=== PATIENT | male | born 2000 | race Caucasian/White ===

== ENCOUNTER 2025-01-14 10:31 | Emergency (ER) | payer SELFPAY ==
[2025-01-14 10:38] VITALS: BP 151/91; PULSE 88; TEMP 36.4; O2SAT 99; BMI 23.4
--- NOTE | 2025-01-14 11:05 | ED.C_ITS ---
HPI - Psych General: Chief Complaint: Psychiatric Symptoms Stated Complaint: MHE Time Seen by Provider: 01/14/25 10:58 History of Present Illness: 24-year-old man with history of alcohol abuse and psychiatric issues who presents emergency room with complaints of depression and relapse on alcohol. He says he was [facility] of [facility] because he had brought some alcohol and. He says he relapsed yesterday and drank some alcohol. He does not appear intoxicated at this time. He says he is wanting to try to get into a different ministry or some sort of rehab. He says he came into the emergency room because this is where the family resource coordinator had dropped him off. He repeatedly denies any suicidal or homicidal ideation. Related Data Previous Rx's ?Medication ?Instructions ?Recorded aripiprazole (2 month) 960 mg/3.2 960 mg (3.2 mL) IM . every 2 months 01/10/25 mL susp, extended rel IM syringe #3.2 mL (Abilify Asimtufii) atomoxetine 60 mg capsule 60 mg PO ONCE #90 caps 01/10 Allergies Allergy/AdvReac Type Severity Reaction Status Date / Time No Known Allergies Allergy Verified 01/14/25 10:43 Review of Systems Narrative: Constitutional symptoms: Negative except as documented in HPI. Skin symptoms: Negative except as documented in HPI. Eye symptoms: Negative except as documented in HPI. ENMT symptoms: Negative except as documented in HPI. Respiratory symptoms: Negative except as documented in HPI. Cardiovascular symptoms: Negative except as documented in HPI. Gastrointestinal symptoms: Negative except as documented in HPI. Genitourinary symptoms: Negative except as documented in HPI. Musculoskeletal symptoms: Negative except as documented in HPI. Neurologic symptoms: Negative except as documented in HPI. Psychiatric symptoms: Negative except as documented in HPI. Endocrine symptoms: Negative except as documented in HPI. PFS ED PFSH: Medical History (Updated 01/14/25 @ 11:08 by Keiry Miguel MD) Anxiety and depression Surgical History (Updated 01/10/25 @ 15:22 by BIRDIE Costello) History of surgery on arm left Social History Smoking and tobacco/nicotine status: former use of tobacco/nicotine Alcohol intake: former Substance/Drug Use: former Physical Exam Narrative: EXAM NARRATIVE: General: Alert, no acute distress. Skin: Warm, dry. Head: Normocephalic, atraumatic. Neck: Supple, trachea midline. Eye: Extraocular movements are intact. Ears, nose, mouth and throat: mucosa moist. Cardiovascular: Regular, Normal peripheral perfusion. Respiratory: Lungs are clear to auscultation, respirations are non-labored, breath sounds are equal, Symmetrical chest wall expansion. Gastrointestinal: Soft, Nontender, Non distended Musculoskeletal: Normal ROM, no deformity. Neurological: Alert and oriented, No focal neurological deficit observed. Psychiatric: Cooperative, appropriate mood & affect. Course Vital Signs: Vital signs: Vital Signs Temperature 97.5 F L 01/14/25 10:38 Pulse Rate 88 01/14/25 10:38 Blood Pressure 151/91 01/14/25 10:38 Pulse Oximetry 99 01/14/25 10:38 Oxygen Delivery Me thod Room Air 01/14/25 10:38 MDM - Psych Medical Decision Making Assessment and plan: Depression Alcohol dependence ? Patient denies any homicidal or suicidal ideation. At this time he is not meeting criteria for inpatient admission. He is looking for rehab or other placement. We discussed that may be the crisis center would be his best next step. - Discharged home - Discussed plan with patient. Answered any questions. - Evaluation and treatment of this problem were appropriate in the emergency setting. No radiology studies performed this visit Discharge Plan Discharge Patient Disposition: Home Clinical Impression: Depression, Bipolar 1 disorder, Alcohol dependence Condition: Stable Prescriptions: No Action Abilify Asimtufii 960 mg/3.2 mL suspension,extended rel syring 960 mg IM .every 2 months Qty: 3.2 3RF atomoxetine 60 mg capsule 60 mg PO ONCE Qty: 90 1RF Discharge Orders: Discharge ED (Routine); Ordered 01/14/25 Ordered By: Keiry Miguel Referrals: Des Flores FNP [Primary Care Provider] - Patient Instructions: Opioid Safety, Pain Management Activity Restrictions/Additional Instructions: Please follow-up with the [facility] crisis center immediately upon discharge. Phone number is [phone]. There is a 24-hour crisis hotline with the number of 438. Hours of operation are 8 AM to 6 PM. Thank you for choosing [facility] for your healthcare needs today. Please realize this is an emergency room and that we are providing you with a medical screening exam and this may not be complete and all inclusive of all the testing and or work up that you may need to determine your ailment or severity of your illness. You have been screened and evaluated and felt safe for discharge. Health conditions do change or evolve sometimes and as such it is important that you follow up with your Primary Doctor to be re checked, 3-5 days is a general good time frame for follow up. You are always welcome to return to the ED for re assessment if your symptoms are worsening or you have new concerns Print Language: Nepali Coding Level of Care Code ED Assigner for Dennise Barnard
[2025-01-14 11:21] VITALS: BP 136/87; PULSE 108; O2SAT 98
== END 2025-01-14 11:22 | disposition home or self-care (01) ==
PROVIDERS: Emergency Provider Emergency Medicine; PCP Nurse Practitioner Family
DX: F31.9 Bipolar disorder, unspecified (principal); F10.20 Alcohol dependence, uncomplicated; Z87.891 Personal history of nicotine dependence
CPT/HCPCS: 99281

== ENCOUNTER 2025-02-22 08:52 | Inpatient (IN) | payer MEDICAID, SELFPAY ==
[2025-02-22] VITALS (39 sets, daily range): BP systolic 82–158; BP diastolic 44–80; PULSE 42–98; RESP 10–21; TEMP 36.3–36.4; O2SAT 58–99; BMI 30.7; BMI 32.1
--- NOTE | 2025-02-22 09:15 | CT_ITS ---
WS: [id number] CT HEAD TECHNIQUE: Noncontrast CT of the head obtained from the skullbase to the vertex. CLINICAL INFORMATION: AMS COMPARISON: None. DLP: 1221.[address] scans at [facility] use at least one of these dose optimization techniques: automated exposure control; mA and/or kV adjustment per patient size (includes targeted exams where dose is matched to clinical indication); or iterative reconstruction. FINDINGS: No evidence of intracranial hemorrhage or mass effect. Ventricular system and basal cisterns are patent. No extra-axial fluid collections. No evidence of mass or mass effect. Polypoid mucosal thickening in the paranasal sinuses. RIGHT maxillary sinusitis. Mastoid air cells are well aerated. CT/CT head wo con* 12642 IMPRESSION: 1. No evidence of intracranial hemorrhage or mass effect. 2. RIGHT maxillary sinusitis. Polypoid mucosal thickening in the paranasal sin uses. 3. No acute intracranial findings.
--- NOTE | 2025-02-22 09:15 | XR_ITS ---
WS: [id number] Exam: XR chest 1V portable [id number] Date/Time of Exam: 02/22/2025 9:15 AM Reason For Exam: AMS No priors. Lungs are clear and fully inflated. Normal cardiomediastinal silhouette. Bony structures are intact. XR/XR chest 1V portable [id number] IMPRESSION: 1. Negative chest.
--- NOTE | 2025-02-22 09:16 | ECG_ITS ---
[facility]: [facility]25[facility]22 Pat Name: Micah Aguilar Department: Room: Gender: Male Pick Up: : 2000 Requested By: Mavis Ramirez Order Number: [id number] Ken MD: Belinda Omer M.D. Measurements Intervals [place] Rate: 86 P: 70 MN: 155 QRS: 85 QRSD: 106 T: 53 QT: 364 QTc: 435 Interpretive Statements SINUS RHYTHM POSSIBLE LEFT ATRIAL ENLARGEMENT [-0.1mV P-WAVE IN V1/V2] INCOMPLETE RIGHT BUNDLE BRANCH BLOCK [90+ ms QRS DURATION, TERMINAL R IN V1/V2, 40+ ms S IN I/aVL/V4/V5/V6] No previous ECG available for comparison Electronically Signed On 02-22-2025 14:25:18 CDT by Belinda Omer M.D. [email or web address]
--- NOTE | 2025-02-22 09:16 | W.ED.AMS ---
Documented by User: KENNY Egan 02/22/25 14:22 HPI - Altered Mental Status General: Chief Complaint: Altered Mental Status Stated Complaint: ams Time Seen by Provider: 02/22/25 09:05 Source: patient Mode of arrival: wheelchair Limitations: altered mental status History of Present Illness: Patient is a 24-year-old male presents to ED today [facility]. He apparently showed up there this morning and had mildly slurred speech which continued to worsen thus prompting them to send him to the emergency department for evaluation. Patient tells me he took 800 mg of THC gummies this morning and drank some alcohol. Patient does not give me an intent when I ask. He can answer a few questions upon arrival but is significantly altered. Vitals are stable upon arrival. MD complaint: altered mental status Onset (ago): hour(s) Timing confirmed by: caregiver Severity: severe Consistency of symptoms: Getting Worse Context: alcohol abuse and drug abuse Associated symptoms: Reports no associated symptoms Related Data Home Medications ?Medication ?Instructions ?Recorded ?Confirmed azithromycin 250 mg tablet See Rx Instructions .Route .COMPLEX 02/22/25 02/22/25 benzonatate 200 mg capsule 200 mg PO TID PRN Cough 02/22/25 02/22/25 cetirizine 10 mg tablet (Zyrtec) 10 mg PO DAILY 02/22/25 02/22/25 hydroxyzine HCl 50 mg tablet 50 mg PO BID 02/22/25 02/22/25 Previous Rx's ?Medication ?Instructions ?Recorded aripiprazole (2 month) 960 mg/3.2 960 mg (3.2 mL) IM .every 2 months 01/10/25 mL susp, extended rel IM syringe #3.2 mL (Abilify Asimtufii) atomoxetine 60 mg capsule 60 mg PO ONCE #90 caps 01/10/25 Allergies Allergy/AdvReac Type Severity Reaction Status Date / Time No Known Allergies Allergy Verified 01/14/25 10:43 Review of Systems General: Reports: ROS unobtainable due to mental status (AMS) [facility] ED PFSH: Medical History Anxiety and depression Surgical History History of surgery on arm left Social History Smoking and tobacco/nicotine status: former use of tobacco/nicotine Alcohol intake: former Substance/Drug Use: former Physical Exam Const: COMMON NORMALS: no acute distress, average body habitus, healthy appearing, alert and well nourished EXAM LIMITATIONS: altered mental status GENERAL APPEARANCE: other (slightly belligerent) ORIENTATION/CONSCIOUSNESS: Yes awake and Yes oriented to person HENMT: COMMON NORMALS: normocephalic and atraumatic HEAD & SCALP: normal to inspection, normocephalic and atraumatic FACE & SINUS: normal facial exam Eye: PUPIL: Yes Dilated pupils Resp: COMMON NORMALS: normal respiratory effort and clear to auscultation bilaterally AUSCULTATION: clear to auscultation bilaterally Cardio: COMMON NORMALS: regular rate and regular rhythm RATE: regular rate RHYTHM: regular rhythm GI: COMMON NORMALS: Normal to inspection, nondistended, normoactive bowel sounds present, Soft to palpation and non-tender PALPATION: Yes Soft to palpation Extremity: GENERAL: Yes normal exam except as noted Neuro: COMMON NORMALS: moves all extremities, no focal motor deficits and no sensory deficits noted SENSORIUM/ORIENTATION: Yes alert and Yes oriented to person Skin: COMMON NORMALS: no rashes or lesions noted GENERAL SKIN EXAM: no rashes or lesions noted Course Consultations: Consultation #1: Dr. Wild-accepts hospitalization Vital Signs: Vital signs: Vital Signs Temperature 97.4 F L 02/22/25 08:55 Pulse Rate 77 02/22/25 13:56 Respiratory Rate 16 02/22/25 13:28 Blood Pressure 120/67 02/22/25 13:56 Pulse Oximetry 92 02/22/25 13:56 Oxygen Delivery Me thod Room Air 02/22/25 14:51 Oxygen Flow Rate 2 02/22/25 11:28 MDM - Altered Mental Status Medical Decision Making Patient is a 24-year-old male who presents to the ED today from Crisis for altered mental status/overdose. Report given from patient was that he ingested 800mg of THC. States he also drank alcohol but this was nondetectable here. Upon arrival patient was altered, slurring words, and psychotic grabbing at the nurses and thinking he was in another realm or . He required IM medications of Geodon/Ativan ordered by Dr. Morales who also assessed patient. Spoke to poison control who stated at this dose you could see respiratory depression, EKG changes, and a plethora of other highly variable presentations. Toxic effects could last up to 24 hours. He has been bradycardic here. No prolonged QT. Blood pressures normal. Dr. Morales has recommended admission to ICU. I spoke to Dr. Wild who is accepting admission. Attempted UA/UDS here with cath but no urine obtained. He currently has fluids running. Patient was placed on a 96-hour hold due to unknown intent of overdose. ES Differential Diagnosis Likely altered mental status and delirium Medical Records I reviewed the patient's medical records. Lab Data I reviewed the patient's lab results. 02/22/25 09:36 02/22/25 09:36 Radiology Impressions Chest X-Ray 02/22/25 09:15 IMPRESSION: 1. Negative chest. Head CT 02/22/25 09:15 IMPRESSION: 1. No evidence of intracranial hemorrhage or mass effect. 2. RIGHT maxillary sinusitis. Polypoid mucosal thickening in the paranasal sinuses. 3. No acute intracranial findings. Laboratory Results WBC 7.84 10^3/uL (3.29-11.43) 02/22/25 09:36 RBC 5.33 10^6/uL (3.85-5.65) 02/22/25 09:36 Hgb 15.30 g/dL (11.27-16.99) 02/22/25 09:36 Hct 46.3 % (37-53) 02/22/25 09:36 MCV 86.9 fl (82-101) 02/22/25 09:36 MCH 28.7 pg (27-33) 02/22/25 09:36 MCHC 33.0 g/dL (30-55) 02/22/25 09:36 RDW 13.1 % (12.1-15.1) 02/22/25 09:36 Plt Count 244 10^3/cmm (157-399) 02/22/25 09:36 MPV 11.6 fL (7.4-10.4) H 02/22/25 09:36 Neut % (Auto) 65.6 % 02/22/25 09:36 Lymph % (Auto) 25.6 % 02/22/25 09:36 [place] % (Auto) 7.7 % 02/22/25 09:36 Eos % (Auto) 0.6 % 02/22/25 09:36 Baso % (Auto) 0.4 % 02/22/25 09:36 Neut # (Auto) 5.14 10^3/uL (1.8-7.7) 02/22/25 09:36 Lymph # (Auto) 2.0 10^3/uL (0.8-4.8) 02/22/25 09:36 [place] # (Auto) 0.6 10^3/uL (0.2-0.9) 02/22/25 09:36 Eos # (Auto) 0.1 10^3/uL (0.0-0.8) 02/22/25 09:36 Baso # (Auto) 0.0 10^3/uL (0.0-0.1) 02/22/25 09:36 Nucleated RBC % (auto) 0 % 02/22/25 09:36 Nucleated RBCs # 0.0 /100WBC 02/22/25 09:36 Sodium 138 mmol/L (136-145) 02/22/25 09:36 Potassium 4.0 mmol/L (3.5-5.1) 02/22/25 09:36 Chloride 102 mmol/L (98-107) 02/22/25 09:36 Carbon Dioxide 25 mmol/L (22-29) 02/22/25 09:36 Anion Gap 15.0 (5-19) 02/22/25 09:36 BUN 23 mg/dL (6-20) H 02/22/25 09:36 Creatinine 0.9 mg/dL (0.7-1.2) 02/22/25 09:36 GFR Calculation 103.7 mL/min (90-130) 02/22/25 09:36 Glucose 86 mg/dL (65-115) 02/22/25 09:36 POC Glucose 109 mg/dL (70-110) 02/22/25 09:38 Calculated Osmolality 289 mOsm/kg (285-295) 02/22/25 09:36 Calcium 9.3 mg/dL (8.5-10.5) 02/22/25 09:36 Total Bilirubin 0.3 mg/dL (0.15-1.2) 02/22/25 09:36 AST 26 U/L (0-40) 02/22/25 09:36 ALT 22 U/L (0-41) 02/22/25 09:36 Alkaline Phosphatase 87 U/L (40-130) 02/22/25 09:36 Total Protein 7.5 g/dL (6.6-8.7) 02/22/25 09:36 Albumin 4.7 g/dL (3.5-5.2) 02/22/25 09:36 Globulin 2.8 g/dL (1.3-4.6) 02/22/25 09:36 Salicylates < 0.3 mg/dL (3-10) L 02/22/25 09:36 Acetaminophen < 5.0 ug/mL (10-30) L 02/22/25 09:36 Ethyl Alcohol < 10 mg/dL (0-10) 02/22/25 09:36 All radiology interpretation(s) finalized by discharge Discharge Plan Discharge Patient Disposition: Admitted As Inpatient Admit Provider: Yuan Wild Clinical Impression: History of drug abuse, Overdose, Tetrahydrocannabinol (THC) use disorder, mild, abuse Condition: Stable Coding Level of Care Code 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 [employer] Documented by User: Zach Morales DO 02/22/25 16:28 HPI - Altered Mental Status General: Chief Complaint: Altered Mental Status Stated Complaint: ams Time Seen by Provider: 02/22/25 09:05 Related Data Home Medications ?Medication ?Instructions ?Recorded ?Confirmed azithromycin 250 mg tablet See Rx Instructions .Route .COMPLEX 02/22/25 02/22/25 benzonatate 200 mg capsule 200 mg PO TID PRN Cough 02/22/25 02/22/25 cetirizine 10 mg tablet (Zyrtec) 10 mg PO DAILY 02/22/25 02/22/25 hydroxyzine HCl 50 mg tablet 50 mg PO BID 02/22/25 02/22/25 Previous Rx's ?Medication ?Instructions ?Recorded aripiprazole (2 month) 960 mg/3.2 960 mg (3.2 mL) IM .every 2 months 01/10/25 mL susp, extended rel IM syringe #3.2 mL (Abilify Asimtufii) atomoxetine 60 mg capsule 60 mg PO ONCE #90 caps 01/10/25 Allergies Allergy/AdvReac Type Severity Reaction Status Date / Time No Known Allergies Allergy Verified 01/14/25 10:43 [facility] ED PFSH: Medical History Anxiety and depression Surgical History (Reviewed 02/22/25 @ 09: by KENNY Egan) History of surgery on arm left Social History (Reviewed 02/22/25 @ 09: by KENNY Egan) Smoking and tobacco/nicotine status: former use of tobacco/nicotine Alcohol intake: former Substance/Drug Use: former Course Vital Signs: Vital signs: Vital Signs Temperature 97.4 F L 02/22/25 08:55 Pulse Rate 77 02/22/25 13:56 Respiratory Rate 16 02/22/25 13:28 Blood Pressure 120/67 02/22/25 13:56 Pulse Oximetry 92 02/22/25 13:56 Oxygen Delivery Me thod Room Air 02/22/25 14:51 Oxygen Flow Rate 2 02/22/25 11:28 MDM - Altered Mental Status Medical Decision Making Patient is a 24-year-old male who presents to the ED today from Crisis for altered mental status/overdose. Report given from patient was that he ingested 800mg of THC. States he also drank alcohol but this was nondetectable here. Upon arrival patient was altered, slurring words, and psychotic grabbing at the nurses and thinking he was in another realm or . He required IM medications of Geodon/Ativan ordered by Dr. Morales who also assessed patient. Spoke to poison control who stated at this dose you could see respiratory depression, EKG changes, and a plethora of other highly variable presentations. Toxic effects could last up to 24 hours. He has been bradycardic here. No prolonged QT. Blood pressures normal. Dr. Morales has recommended admission to ICU. I spoke to Dr. Wild who is accepting admission. Attempted UA/UDS here with cath but no urine obtained. He currently has fluids running. Patient was placed on a 96-hour hold due to unknown intent of overdose. ES Patient initially presented as acutely psychotic he was given Geodon and Ativan. Will reassess the patient multiple times. He did become bradycardic for period of time but his blood pressure remained stable his map was elevated above 65. Did several EKGs no prolonged QT. Patient has significant overdose on THC with acute psychosis. No history given directly by patient concern possibly for intentional overdose although patient has a history of polysubstance abuse. Will place on 96-hour hold and evaluate again once patient has recovered from the overdose. I am concerned he may have done this intentionally. Patient has been given IV fluids he is now on maintenance fluids discussed with hospitalist orders written for ICU. Lab Data 02/22/25 09:36 02/22/25 09:36 Radiology Impressions Chest X-Ray 02/22/25 09:15 IMPRESSION: 1. Negative chest. Head CT 02/22/25 09:15 IMPRESSION: 1. No evidence of intracranial hemorrhage or mass effect. 2. RIGHT maxillary sinusitis. Polypoid mucosal thickening in the paranasal sinuses. 3. No acute intracranial findings. Laboratory Results WBC 7.84 10^3/uL (3.29-11.43) 02/22/25 09:36 RBC 5.33 10^6/uL (3.85-5.65) 02/22/25 09:36 Hgb 15.30 g/dL (11.27-16.99) 02/22/25 09:36 Hct 46.3 % (37-53) 02/22/25 09:36 MCV 86.9 fl (82-101) 02/22/25 09:36 MCH 28.7 pg (27-33) 02/22/25 09:36 MCHC 33.0 g/dL (30-55) 02/22/25 09:36 RDW 13.1 % (12.1-15.1) 02/22/25 09:36 Plt Count 244 10^3/cmm (157-399) 02/22/25 09:36 MPV 11.6 fL (7.4-10.4) H 02/22/25 09:36 Neut % (Auto) 65.6 % 02/22/25 09:36 Lymph % (Auto) 25.6 % 02/22/25 09:36 [place] % (Auto) 7.7 % 02/22/25 09:36 Eos % (Auto) 0.6 % 02/22/25 09:36 Baso % (Auto) 0.4 % 02/22/25 09:36 Neut # (Auto) 5.14 10^3/uL (1.8-7.7) 02/22/25 09:36 Lymph # (Auto) 2.0 10^3/uL (0.8-4.8) 02/22/25 09:36 [place] # (Auto) 0.6 10^3/uL (0.2-0.9) 02/22/25 09:36 Eos # (Auto) 0.1 10^3/uL (0.0-0.8) 02/22/25 09:36 Baso # (Auto) 0.0 10^3/uL (0.0-0.1) 02/22/25 09:36 Nucleated RBC % (auto) 0 % 02/22/25 09:36 Nucleated RBCs # 0.0 /100WBC 02/22/25 09:36 Sodium 138 mmol/L (136-145) 02/22/25 09:36 Potassium 4.0 mmol/L (3.5-5.1) 02/22/25 09:36 Chloride 102 mmol/L (98-107) 02/22/25 09:36 Carbon Dioxide 25 mmol/L (22-29) 02/22/25 09:36 Anion Gap 15.0 (5-19) 02/22/25 09:36 BUN 23 mg/dL (6-20) H 02/22/25 09:36 Creatinine 0.9 mg/dL (0.7-1.2) 02/22/25 09:36 GFR Calculation 103.7 mL/min (90-130) 02/22/25 09:36 Glucose 86 mg/dL (65-115) 02/22/25 09:36 POC Glucose 109 mg/dL (70-110) 02/22/25 09:38 Calculated Osmolality 289 mOsm/kg (285-295) 02/22/25 09:36 Calcium 9.3 mg/dL (8.5-10.5) 02/22/25 09:36 Total Bilirubin 0.3 mg/dL (0.15-1.2) 02/22/25 09:36 AST 26 U/L (0-40) 02/22/25 09:36 ALT 22 U/L (0-41) 02/22/25 09:36 Alkaline Phosphatase 87 U/L (40-130) 02/22/25 09:36 Total Protein 7.5 g/dL (6.6-8.7) 02/22/25 09:36 Albumin 4.7 g/dL (3.5-5.2) 02/22/25 09:36 Globulin 2.8 g/dL (1.3-4.6) 02/22/25 09:36 Salicylates < 0.3 mg/dL (3-10) L 02/22/25 09:36 Acetaminophen < 5.0 ug/mL (10-30) L 02/22/25 09:36 Ethyl Alcohol < 10 mg/dL (0-10) 02/22/25 09:36 Discharge Plan Discharge Patient Disposition: Admitted As Inpatient Admit Provider: Yuan Wild Clinical Impression: History of drug abuse, Overdose, Tetrahydrocannabinol (THC) use disorder, mild, abuse Condition: Stable Coding Level of Care Code 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
[2025-02-22] MEDS: ziprasidone 20 mg/mL SDV IM (09:29)
[2025-02-22] MEDS: LORazepam 2 mg/mL INJ 1 mL IM (09:29)
[2025-02-22 09:41] LABS: Glucose Point of Care 109 mg/dL (70-110)
[2025-02-22 09:42] LABS: Basophils % 0.4 %; Eosinophils # 0.1 10^3/uL (0.0-0.8); Eosinophils % 0.6 %; Hematocrit 46.3 % (37-53); Lymphocytes % 25.6 %; Mean Corpuscular Hemoglobin 28.7 pg (27-33); Mean Corpuscular Volume 86.9 fl (82-101); Mean Platelet Volume 11.6 fL (7.4-10.4); Monocytes # 0.6 10^3/uL (0.2-0.9); Monocytes % 7.7 %; Neutrophils # 5.14 10^3/uL (1.8-7.7); Neutrophils % 65.6 %; Nucleated Red Blood Cells % 0 %; Platelet Count 244 10^3/cmm (157-399); Red Blood Count 5.33 10^6/uL (3.85-5.65); Red Cell Distribution Width 13.1 % (12.1-15.1); White Blood Count 7.84 10^3/uL (3.29-11.43)
--- NOTE | 2025-02-22 09:45 | PC.NURSE ---
PATIENT MOVED TO ROOM 9, 1:[address] PATIENT STABLE AND CONNECTED TO CARDIAC, BP, AND O2 MONITORING. SITTER EDUCATED TO WATCH FOR ASPIRATION AND SIGNS OF VOMITING. PATIENT FSBS 109.
[2025-02-22 09:57] LABS: Alanine Aminotransferase 22 U/L (0-41); Albumin Level 4.7 g/dL (3.5-5.2); Alkaline Phosphatase 87 U/L (40-130); Aspartate Amino Transferase 26 U/L (0-40); Blood Urea Nitrogen 23 mg/dL (6-20); Calcium 9.3 mg/dL (8.5-10.5); Carbon Dioxide 25 mmol/L (22-29); Chloride 102 mmol/L (98-107); Creatinine Clr Calc Pharmacy 152.3323; Globulin 2.8 g/dL (1.3-4.6); Glomerular Filtration Rate 103.7 mL/min (90-130); Glucose 86 mg/dL (65-115); Osmolality Calculated 289 mOsm/kg (285-295); Sodium 138 mmol/L (136-145); Total Bilirubin 0.3 mg/dL (0.15-1.2); Total Protein 7.5 g/dL (6.6-8.7)
--- NOTE | 2025-02-22 10:00 | PC.NURSE ---
PATIENT PLACED ON 2 L NC DUE TO O2 SATURATION OF 84% AFTER MEDICATIONS.
[2025-02-22 10:01] LABS: Acetaminophen < 5.0 ug/mL (10-30); Alcohol Level < 10 mg/dL (0-10); Salicylate < 0.3 mg/dL (3-10)
[2025-02-22] MEDS: sodium chloride 0.9% 1,000 ML 999 ML IV ×2 (10:45→12:15)
--- NOTE | 2025-02-22 11:29 | PC.NURSE ---
PATIENT HR CONTINUES TO DECREASE. PROVIDER MADE AWARE. PROVIDER VERBALIZED TO SPEAK WITH DR REED. DR REED TO PATIENTS ROOM TO EVALUATE. NO ORDERS AT THIS TIME. 1:1 PRESENT, PATIENT LEFT SIDE LYING.
--- NOTE | 2025-02-22 13:18 | PM.HP ---
Providers/Chief Complaint Admitting Physician: Yuan Wild Primary Care Provider: Des Flores Chief Complaint: ams History of Present Illness 24-year-old male with a history of psychiatric illness presents to the Emergency Department (ED) today from [facility] due to worsening altered mental status. He was noted to have mildly slurred speech, which continued to worsen, thus prompting transfer to the ED for evaluation. Patient was seen in ICU with sitter at bedside. He was difficult to arouse. History was obtained from EMR and discussion with staff. Patient apparently took 800 mg of THC gummies this morning and drank some alcohol. He was very altered on arrival. Family reported that Patient left his nursing home and has been noncompliant with his Abilify. Patient is currently homeless. He reportedly goes on binges with cannabis and alcohol. No reported suicidal ideation prior to arrival; however, he was very confused, and suicidal ideation could not be determined. Patient was placed on a 96-hour hold. He required IM medications of Geodon/Ativan, likely contributing to his drowsiness. Patient was noted to have bradycardic episodes as well. Normal QTc. Heart rate ranged 30-60s. Sinus rhythm. Initial evaluation in the ER revealed: - Laboratory Findings: WBC 7.8, hemoglobin 15.3 g/dL, hematocrit 46%, platelet count 244,000/?L. Sodium 138 mEq/L, potassium 4.0 mEq/L, chloride 102 mEq/L, bicarbonate 25 mEq/L, BUN 23 mg/dL, creatinine 0.9 mg/dL. Liver function tests (LFTs) within normal limits. Negative alcohol level, acetaminophen, and salicylates. - Imaging Studies: Head CT showed no evidence of acute intracranial abnormality. Right maxillary sinusitis was noted. Chest x-ray was negative. Review of Systems General: Reports: ROS unobtainable due to mental status Medications/Allergies Home Medications ?Medication ?Instructions ?Recorded ?Confirmed ?Last Taken ?Type aripiprazole (2 month) 960 mg/3.2 960 mg (3.2 mL) IM .every 2 months 01/10/25 02/22/25 Unknown Rx mL susp, extended rel IM syringe #3.2 mL (Abilify Asimtufii) atomoxetine 60 mg capsule 60 mg PO ONCE #90 caps 01/10/25 02/22/25 Unknown Rx azithromycin 250 mg tablet See Rx Instructions .Route .COMPLEX 02/22/25 02/22/25 Unknown History benzonatate 200 mg capsule 200 mg PO TID PRN Cough 02/22/25 02/22/25 Unknown History cetirizine 10 mg tablet (Zyrtec) 10 mg PO DAILY 02/22/25 02/22/25 Unknown History hydroxyzine HCl 50 mg tablet 50 mg PO BID 02/22/25 02/22/25 Unknown History Allergies Allergy/AdvReac Type Severity Reaction Status Date / Time No Known Allergies Allergy Verified 01/14/25 10:43 PFSH Acute PFSH: Medical History Anxiety and depression Surgical History History of surgery on arm left Social History Smoking and tobacco/nicotine status: former use of tobacco/nicotine Alcohol intake: former Substance/Drug Use: former Vitals/I&O/Wt Last Vital Signs Temp 97.4 F L 02/22/25 08:55 Pulse 47 L 02/22/25 11:28 Resp 10 L 02/22/25 11:28 BP 124/68 02/22/25 11:28 Pulse Ox 97 02/22/25 11:28 O2 Del Method Nasal Cannula 02/22/25 11:28 O2 Flow Rate 2 02/22/25 11:28 02/21/25 02/22/25 02/22/25 22:59 06:59 14:59 Intake Total 1000 / 1000 Balance 1000 / 1000 Weight last 48 hrs Weight 99.79 kg Physical Exam Narrative: Patient was very drowsy Atraumatic, normocyphalic Sinus allyson CTABL SOFT NT, ND No LE edema Right hand appear red slightly swollen Data 02/22/25 09:36 02/22/25 09:36 A&P Assessment and plan (1) Tetrahydrocannabinol (THC) use disorder, mild, abuse: (2) Overdose: (3) History of drug abuse: (4) Bipolar 1 disorder: Plan Acute Intoxication with Altered Mental Status - Patient presents with altered mental status following reported ingestion of 800 mg THC gummies and alcohol. History of psychiatric illness and medication noncompliance (Abilify) noted. Plan: 1. Continue close monitoring of mental status, vital signs, and level of consciousness. 2. Serial neurological checks. 3. Maintain on 96-hour hold for psychiatric evaluation once more alert. 4. Gradual withdrawal protocol as needed. 5. Psychiatry consultation for medication management and follow-up care planning. Bradycardia - Noted bradycardic episodes with heart rate ranging 30-60s, sinus rhythm. Normal QTc reported. Likey due to cannabis Plan: 1. Continuous cardiac monitoring. 2. Serial EKGs to monitor for any changes or prolongation of QTc. 3. Consider holding any medications that may contribute to bradycardia. 4. Cardiology consultation if bradycardia persists or worsens. PDMP PDMP Reviewed: Not Reviewed Attestations Medical Necessity Statement*: Will require over 2 midnight stay for treatment of above. Coding Level of Care Code Acute Code for g Fwd Diagnoses Tetrahydrocannabinol (THC) use disorder, mild, abuse F12.10 Overdose T50.901A History of drug abuse F19.11 Bipolar 1 disorder F31.9
--- NOTE | 2025-02-22 13:49 | PC.NURSE ---
PATIENT LIVES AT [facility]. PATIENT WILL RETURN THERE UPON DISCHARGE, .
[2025-02-22 14:00] LABS: Add Urine Microscopic? NO
[2025-02-22 14:05] LABS: Bilirubin Urine Neg (Negative); Blood Urine Neg (Negative); Glucose Urine UA Norm (Normal); Ketones Urine Negative (Negative); Leukocyte Esterase Urine Negative (Negative); Nitrate Urine Negative (Negative); Protein Urine Neg (Negative); Urine Appearance Clear (CLEAR); Urine Color Yellow (Yellow); Urobilinogen Urine Neg (Negative); pH Urine 5 (5-7)
[2025-02-22 14:06] LABS: Charge for UA Resulting for Rev
[2025-02-22 14:07] LABS: Bacteria Urine None Seen /hpf; Hyaline Casts Urine 1.65 /lpf; RBC Urine 0-2 /hpf (0-2); Squamous Epithelial Cell Urine 0-5 /hpf (0-5); WBC Urine 0-5 /hpf (0-5)
[2025-02-22 14:17] LABS: Amphetamines Screen Urine Negative (Negative); Barbiturates Screen Urine Negative (Negative); Benzodiazepines Screen Urine Negative (Negative); Cocaine Screen Urine Negative (Negative); Opiate Screen Urine Negative (Negative); PCP Screen Urine Negative (Negative); THC Screen Urine Positive (Negative)
--- NOTE | 2025-02-22 14:24 | PC.NURSE ---
Attempted to read 96 hour hold rights. Patient appears to be sleeping at this time. Will admit to read 96 hour hold rights to patient when he is more alert and awake.
[2025-02-22] MEDS: enoxaparin 40 mg/0.4 mL Syringe SUBCUT (15:03)
[2025-02-22] MEDS: lactated ringers 1,000 ML 100 ML IV (15:04)
--- NOTE | 2025-02-22 16:04 | XRR_ITS ---
PROCEDURE INFORMATION: Exam: XR Right Hand Exam date and time: 02/22/2025 4:25 PM Age: 24 years old Clinical indication: Injury or trauma; Other: AMS. Punched a wall. Blunt trauma (contusions or hematomas); Hand; Right; Additional info: Possible trauma TECHNIQUE: Imaging protocol: Radiologic exam of the right hand. Views: 3 or more views. COMPARISON: No relevant prior studies available. FINDINGS: Bones/joints: Normal. Soft tissues: Normal. XR/XR hand RT min 3V* [id number] IMPRESSION: No acute findings.
--- NOTE | 2025-02-22 17:38 | PC.NURSE ---
Patient arrived from the ER without any family members and AMS. Patient's hand was noticed to be extremely red and puffy. Doctor Junito was notified and an X ray of their hand was ordered.
--- NOTE | 2025-02-22 20:32 | PC.NURSE ---
Poison control called to get update on pt. Notified poison control that patient is now alert and oriented requesting something to eat and to have his hernandez removed due to discomfort. Pt is calm, resting in bed, alert and oreinted x4. Dr. Guzman notified that patient is awake, alert, and oriented requesting food and hernandez to be removed. New order for regular diet and DC hernandez catheter.
[2025-02-23] VITALS (38 sets, daily range): BP systolic 98–145; BP diastolic 44–87; PULSE 54–100; RESP 13–26; TEMP 36.8–37.1; O2SAT 92–100
[2025-02-23] MEDS: lactated ringers 1,000 ML 100 ML IV ×2 (01:37→11:38)
[2025-02-23 04:50] LABS: Basophils % 0.3 %; Eosinophils # 0.1 10^3/uL (0.0-0.8); Eosinophils % 1.1 %; Hematocrit 39.7 % (37-53); Lymphocytes # 1.5 10^3/uL (0.8-4.8); Lymphocytes % 20.6 %; Mean Corpuscular HGB Conc 32.5 g/dL (30-55); Mean Corpuscular Hemoglobin 28.7 pg (27-33); Mean Corpuscular Volume 88.2 fl (82-101); Mean Platelet Volume 11.2 fL (7.4-10.4); Monocytes # 0.6 10^3/uL (0.2-0.9); Monocytes % 7.6 %; Neutrophils # 5.25 10^3/uL (1.8-7.7); Neutrophils % 70.3 %; Nucleated Red Blood Cells % 0 %; Platelet Count 218 10^3/cmm (157-399); Red Cell Distribution Width 13.2 % (12.1-15.1); White Blood Count 7.47 10^3/uL (3.29-11.43)
[2025-02-23 05:14] LABS: Alanine Aminotransferase 19 U/L (0-41); Albumin Level 3.7 g/dL (3.5-5.2); Alkaline Phosphatase 75 U/L (40-130); Anion Gap 12.8 (5-19); Aspartate Amino Transferase 21 U/L (0-40); Blood Urea Nitrogen 20 mg/dL (6-20); Calcium 8.4 mg/dL (8.5-10.5); Carbon Dioxide 24 mmol/L (22-29); Chloride 109 mmol/L (98-107); Creatinine Clr Calc Pharmacy 155.7049; Globulin 2.1 g/dL (1.3-4.6); Glomerular Filtration Rate 103.7 mL/min (90-130); Glucose 127 mg/dL (65-115); Osmolality Calculated 298 mOsm/kg (285-295); Potassium 3.8 mmol/L (3.5-5.1); Sodium 142 mmol/L (136-145); Total Bilirubin 0.2 mg/dL (0.15-1.2); Total Protein 5.8 g/dL (6.6-8.7)
[2025-02-23] MEDS: nicotine 21 mg Patch 1 PATCH TRANSDERMA (09:53)
--- NOTE | 2025-02-23 10:21 | PC.NURSE ---
TO ROOM WITH STRAIGHT PIN MAKING MACHINE OPERATOR TO READ PT RIGHTS FOR 96 HOUR HOLD THAT WAS FILED YESTERDAY. ON 02/22/25 TECHNICAL ADMINISTRATIVE ASSISTANT DID ATTEMPT TO READ PT RIGHTS PER NOTE AND STAFF REPORT. TECHNICAL ADMINISTRATIVE ASSISTANT WAS UNABLE TO READ PT RIGHTS DUE TO PT SLEEPING AND DECREASED COGNITION. AT 1010 AM PT RIGHTS FOR 96 HOUR HOLD WERE READ WITHOUT ISSUES. PT LAUGHED AND GAVE RN'S TWO THUMBS UP. HAD NO QUESTIONS AT THAT TIME. REASSURED PT IF QUESTIONS ARISE TO ASK STAFF AND THIS RN WOULD COME AND ANSWER. COPY OF 96 HOUR PATIENT RIGHTS GIVEN TO PT. SUPPORT VOICE.
--- NOTE | 2025-02-23 10:27 | PC.NURSE ---
Witnessed reading of rights to patient by supervisor production department. Patient had no questions.
[2025-02-23] MEDS: enoxaparin 40 mg/0.4 mL Syringe SUBCUT (13:34)
--- NOTE | 2025-02-23 14:07 | P.DS_ITS ---
Discharge Providers Date of Admission: 02/22/25 13:01 Date of Discharge: February 23, 2025 Attending Provider at Admission: Yuan Wild Attending Provider at Discharge: Yuan Wild Primary Care Provider: Des Flores Diagnoses at Discharge Discharge Diagnosis (1) Tetrahydrocannabinol (THC) use disorder, mild, abuse: Status: Acute (2) Overdose: Status: Acute (3) History of drug abuse: Status: Acute (4) Bipolar 1 disorder: Status: Acute Reason for Visit Reason for Visit: ams Physical Exam Urinary Catheter Management: Hussein: Cath Placed During This Visit: yes, but has since been removed by the nurse Reason for Continuing Indwelling Catheter: Decision to DC Catheter Urinary Catheter Date of Insertion: 02/22/25 Urinary Catheter Time of Insertion: 13:47 Date Urinary Catheter Removed: 02/22/25 Time Urinary Catheter Discontinued: 20:30 Discharge Data Studies Completed and Pending Completed Studies During Hospitalization Category Date Time Status CT head wo con* [id number] Urgent Cat Scan 02/22/25 09:15 Completed XR chest 1V portable [id number] Urgent Exams 02/22/25 09:15 Completed XR hand RT min 3V* [id number] Routine Exams 02/22/25 16:04 Completed Pending at discharge Category Date Time Status Complete Blood Count w/Auto AM LABS Lab 02/24/25 04:00 Ordered Complete Blood Count w/Auto AM LABS Lab 02/25/25 04:00 Ordered Comprehensive Metabolic Panel AM LABS Lab 02/24/25 04:00 Ordered Comprehensive Metabolic Panel AM LABS Lab 02/25/25 04:00 Ordered Radiology Impressions Chest X-Ray 02/22/25 09:15 IMPRESSION: 1. Negative chest. Head CT 02/22/25 09:15 IMPRESSION: 1. No evidence of intracranial hemorrhage or mass effect. 2. RIGHT maxillary sinusitis. Polypoid mucosal thickening in the paranasal sinuses. 3. No acute intracranial findings. Hand X-Ray 02/22/25 16:04 IMPRESSION: No acute findings. Laboratory Results WBC 7.47 10^3/uL (3.29-11.43) 02/23/25 03:52 RBC 4.50 10^6/uL (3.85-5.65) 02/23/25 03:52 Hgb 12.90 g/dL (11.27-16.99) 02/23/25 03:52 Hct 39.7 % (37-53) 02/23/25 03:52 MCV 88.2 fl (82-101) 02/23/25 03:52 MCH 28.7 pg (27-33) 02/23/25 03:52 MCHC 32.5 g/dL (30-55) 02/23/25 03:52 RDW 13.2 % (12.1-15.1) 02/23/25 03:52 Plt Count 218 10^3/cmm (157-399) 02/23/25 03:52 MPV 11.2 fL (7.4-10.4) H 02/23/25 03:52 Neut % (Auto) 70.3 % 02/23/25 03:52 Lymph % (Auto) 20.6 % 02/23/25 03:52 [place] % (Auto) 7.6 % 02/23/25 03:52 Eos % (Auto) 1.1 % 02/23/25 03:52 Baso % (Auto) 0.3 % 02/23/25 03:52 Neut # (Auto) 5.25 10^3/uL (1.8-7.7) 02/23/25 03:52 Lymph # (Auto) 1.5 10^3/uL (0.8-4.8) 02/23/25 03:52 [place] # (Auto) 0.6 10^3/uL (0.2-0.9) 02/23/25 03:52 Eos # (Auto) 0.1 10^3/uL (0.0-0.8) 02/23/25 03:52 Baso # (Auto) 0.0 10^3/uL (0.0-0.1) 02/23/25 03:52 Nucleated RBC % (auto) 0 % 02/23/25 03:52 Nucleated RBCs # 0.0 /100WBC 02/23/25 03:52 Sodium 142 mmol/L (136-145) 02/23/25 03:52 Potassium 3.8 mmol/L (3.5-5.1) 02/23/25 03:52 Chloride 109 mmol/L (98-107) H 02/23/25 03:52 Carbon Dioxide 24 mmol/L (22-29) 02/23/25 03:52 Anion Gap 12.8 (5-19) 02/23/25 03:52 BUN 20 mg/dL (6-20) 02/23/25 03:52 Creatinine 0.9 mg/dL (0.7-1.2) 02/23/25 03:52 GFR Calculation 103.7 mL/min (90-130) 02/23/25 03:52 Glucose 127 mg/dL (65-115) H 02/23/25 03:52 POC Glucose 109 mg/dL (70-110) 02/22/25 09:38 Calculated Osmolality 298 mOsm/kg (285-295) H 02/23/25 03:52 Calcium 8.4 mg/dL (8.5-10.5) L 02/23/25 03:52 Total Bilirubin 0.2 mg/dL (0.15-1.2) 02/23/25 03:52 AST 21 U/L (0-40) 02/23/25 03:52 ALT 19 U/L (0-41) 02/23/25 03:52 Alkaline Phosphatase 75 U/L (40-130) 02/23/25 03:52 Total Protein 5.8 g/dL (6.6-8.7) L D 02/23/25 03:52 Albumin 3.7 g/dL (3.5-5.2) 02/23/25 03:52 Globulin 2.1 g/dL (1.3-4.6) 02/23/25 03:52 Urine Color Yellow (Yellow) 02/22/25 13:25 Urine Appearance Clear (CLEAR) 02/22/25 13:25 Urine pH 5 (5-7) 02/22/25 13:25 Ur Specific [place] 1.020 (1.005-1.030) 02/22/25 13:25 Urine Protein Neg (Negative) 02/22/25 13:25 Urine Glucose (UA) Norm (Normal) 02/22/25 13:25 Urine Ketones Negative (Negative) 02/22/25 13:25 Urine Blood Neg (Negative) 02/22/25 13:25 Urine Nitrate Negative (Negative) 02/22/25 13:25 Urine Bilirubin Neg (Negative) 02/22/25 13:25 Urine Urobilinogen Neg mg/dL (Negative) 02/22/25 13:25 Ur Leukocyte Esterase Negative (Negative) 02/22/25 13:25 Urine RBC 0-2 /hpf (0-2) 02/22/25 13:25 Urine WBC 0-5 /hpf (0-5) 02/22/25 13:25 Ur Squamous Epith Cells 0-5 /hpf (0-5) 02/22/25 13:25 Amorphous Sediment Not Reportable 02/22/25 13:25 Urine Bacteria None seen /hpf (NONE) 02/22/25 13:25 Hyaline Casts 1.65 /lpf 02/22/25 13:25 Salicylates < 0.3 mg/dL (3-10) L 02/22/25 09:36 Urine Opiates Screen Negative ng/mL (Negative) 02/22/25 13:25 Acetaminophen < 5.0 ug/mL (10-30) L 02/22/25 09:36 Ur Barbiturates Screen Negative ng/mL (Negative) 02/22/25 13:25 Ur Phencyclidine Scrn Negative ng/mL (Negative) 02/22/25 13:25 Ur Amphetamines Screen Negative ng/mL (Negative) 02/22/25 13:25 U Benzodiazepines Scrn Negative ng/mL (Negative) 02/22/25 13:25 Urine Cocaine Screen Negative ng/mL (Negative) 02/22/25 13:25 U Marijuana (THC) Screen Positive ng/mL (Negative) H 02/22/25 13:25 Ethyl Alcohol < 10 mg/dL (0-10) 02/22/25 09:36 Vitals Last Vital Signs Temp 98.5 F 02/23/25 12:01 Pulse 94 02/23/25 14:00 Resp 15 02/23/25 14:00 BP 134/76 02/23/25 14:00 Pulse Ox 98 02/23/25 14:00 O2 Del Method Room Air 02/23/25 14:00 O2 Flow Rate 2 02/22/25 11:28 Discharge Plan Discharge Patient Disposition: Home Condition: Stable Prescriptions: No Action Abilify Asimtufii 960 mg/3.2 mL suspension,extended rel syring 960 mg IM .every 2 months Qty: 3.2 3RF atomoxetine 60 mg capsule 60 mg PO ONCE Qty: 90 1RF cetirizine [Zyrtec] 10 mg tablet 10 mg PO DAILY azithromycin 250 mg tablet See Rx Instructions .ROUTE .COMPLEX Rx Instructions: TAKE 2 TABLETS BY MOUTH ON DAY 1, AND THEN TAKE 1 TABLET BY MOUTH ONCE A DAY ON DAY 2 THROUGH DAY 5 benzonatate 200 mg capsule 200 mg PO TID PRN (Reason: Cough) hydroxyzine HCl 50 mg tablet 50 mg PO BID Referrals: Des Flores FNP [Primary Care Provider] - Patient Instructions: Altered Mental Status (ED), Opioid Safety Coding Level of Care Code Acute Code for g Fwd Diagnoses Tetrahydrocannabinol (THC) use disorder, mild, abuse F12.10 Overdose T50.901A History of drug abuse F19.11 Bipolar 1 disorder F31.9
--- NOTE | 2025-02-23 14:09 | P.PN_ITS ---
Subjective 2 Subjective: 24-year-old male with a history of psych iatric illness presents to the Emergency Department (ED) today [facility] due to worsening altered mental status. He was noted to have mildly slurred speech, which continued to worsen, thus prompting transfer to the ED for evaluation. Patient was seen in ICU with sitter at bedside. He was difficult to arouse. History was obtained from EMR and discussion with staff. Patient apparently took 800 mg of THC gummies this morning and drank some alcohol. He was very altered on arrival. Family reported that Patient left his detention and has been noncompliant with his Abilify. Patient is currently homeless. He reportedly goes on binges with cannabis and alcohol. No reported suicidal ideation prior to arrival; however, he was very confused, and suicidal ideation could not be determined. Patient was placed on a 96-hour hold. He required IM medications of Geodon/Ativan, likely contributing to his drowsiness. Patient was noted to have bradycardic episodes as well. Normal QTc. Heart rate ranged 30-60s. Sinus rhythm. Initial evaluation in the ER revealed: - Laboratory Findings: WBC 7.8, hemoglob in 15.3 g/dL, hematocrit 46%, platelet count 244,000/?L. Sodium 138 mEq/L, potassium 4.0 mEq/L, chloride 102 mEq/L, bicarbonate 25 mEq/L, BUN 23 mg/dL, creatinine 0.9 mg/dL. Liver function tests (LFTs) within normal limits. Negative alcohol level, acetaminophen, and salicylates. - Imaging Studies: Head CT showed no rain dence of acute intracranial abnormality. Right maxillary sinusitis was noted. Chest x-ray was negative. 02/23 Patient was awake alert today. He did not have any clinical events overnight. On my discussion today he denied any suicidal ideations however does state that he had actually taken five 200 mg THC Gummies. He had not been compliant with any of his other medications including Abilify. Today he did not have a physician to follow-up with. Was also on gabapentin however not clear why. He was tolerating orally. No longer was bradycardic. He did continue right- handed. Did not appear to be swollen. Medications: Reviewed: Yes Vitals/I&O/Wt Last Vital Signs Temp 98.5 F 02/23/25 12:01 Pulse 94 02/23/25 14:00 Resp 15 02/23/25 14:00 BP 134/76 02/23/25 14:00 Pulse Ox 98 02/23/25 14:00 O2 Del Method Room Air 02/23/25 14:00 O2 Flow Rate 2 02/22/25 11:28 02/22/25 02/23/25 02/23/25 22:59 06:59 14:59 Intake Total 1480 / 2480 1480 / 3960 1400 / 1400 Output Total 1350 / 1350 575 / 575 Balance 130 / 1130 1480 / 2610 825 / 825 Weight last 48 hrs Weight 108.272 kg Weight 104.5 kg Weight 99.79 kg Physical Exam 2 Narrative: Awake alert oriented x 3 no apparent distress HEENT?grossly unremarkable CVS?regular rate rhythm, no obvious murmur rubs or gallops Chest/pelvis bilaterally SOFT NT, ND No LE edema Urinary Catheter Management: Hussein: Cath Placed During This Visit: yes, but has since been removed by the nurse Reason for Continuing Indwelling Catheter: Decision to DC Catheter Urinary Catheter Date of Insertion: 02/22/25 Urinary Catheter Time of Insertion: 13:47 Date Urinary Catheter Removed: 02/22/25 Time Urinary Catheter Discontinued: 20:30 Data 02/23/25 03:52 02/23/25 03:52 A&P Assessment and plan (1) Tetrahydrocannabinol (THC) use disorder, mild, abuse: (2) Overdose: (3) History of drug abuse: (4) Bipolar 1 disorder: Plan Acute Cannabis induced Psychosis - Patient presents with altered mental status following reported ingestion of 1000 mg THC gummies and alcohol. History of psychiatric illness and medication noncompliance (Abilify) noted. Patient's mental status improved and he returned to baseline. Plan: 1. Psychiatry consulted. Patient okay to be transferred to [facility]. Sitter at bedside. 2. Patient is on a 96-hour hold. Bradycardia - Resolved. - Noted bradycardic episodes with heart rate ranging 30-60s, sinus rhythm. Normal QTc reported. This is likely induced by significant cannabis dose. Overnight this had resolved. The patient does not have any complaint of lightheadedness dizziness, chest pain. Psychiatric disorders -Previously was on Abilify which she has been noncompliant with. Will defer medication management to psychiatry. Patient is medically stable to transfer to [facility] PDMP PDMP Reviewed: Not Reviewed Attestations 2 Medical Necessity Statement*: Will require further hospitalization and neuropsychiatric unit Coding Level of Care Code Acute Code for Chg Fwd Diagnoses Tetrahydrocannabinol (THC) use disorder, mild, abuse F12.10 Overdose T50.901A History of drug abuse F19.11 Bipolar 1 disorder F31.9
--- NOTE | 2025-02-23 15:07 | PC.NURSE ---
Attempted to call report to [facility], unable to take report at this time, room to be cleaned.
--- NOTE | 2025-02-23 17:05 | PC.NURSE ---
Report called to [facility], patient is currently AOX4, see documented vitals.
--- NOTE | 2025-02-23 18:35 | PC.NURSE ---
Patient came into the hospital from [place] to [facility] for overdose of THC gummies. Patient denies suicide intent. Patient does endorse previous attempt years ago but wouldn't discuss this further. Patient denies AVH. Patient reports anxiety. Patient says that he used to take clozapine, clonapen and gabapentin 6 months ago when he was at a psych facility in [facility] but because of lack of insurance, he was unable to continue. Patient says he now takes hydroxyzine and lexapro.
[2025-02-23] MEDS: nicotine 2 mg Gum BUCCAL ×2 (18:40→20:00)
[2025-02-23] MEDS: hyDROXYzine 25 mg Capsule 50 MG PO (19:52)
[2025-02-23] MEDS: trazodone 50 mg Tablet PO (20:38)
[2025-02-24 06:00] VITALS: BP 131/82; PULSE 77; RESP 18; O2SAT 100
[2025-02-24] MEDS: hyDROXYzine 25 mg Capsule 50 MG PO ×2 (07:14→15:25)
[2025-02-24] MEDS: nicotine 21 mg Patch 1 PATCH TRANSDERMA (07:14)
[2025-02-24 09:28] LABS: Basophils % 0.5 %; Eosinophils # 0.1 10^3/uL (0.0-0.8); Eosinophils % 1.7 %; Hematocrit 40.9 % (37-53); Lymphocytes # 1.5 10^3/uL (0.8-4.8); Lymphocytes % 23.5 %; Mean Corpuscular Hemoglobin 29.8 pg (27-33); Mean Corpuscular Volume 87.6 fl (82-101); Mean Platelet Volume 10.8 fL (7.4-10.4); Monocytes # 0.4 10^3/uL (0.2-0.9); Monocytes % 6.9 %; Neutrophils # 4.31 10^3/uL (1.8-7.7); Neutrophils % 67.1 %; Nucleated Red Blood Cells % 0 %; Platelet Count 266 10^3/cmm (157-399); Red Blood Count 4.67 10^6/uL (3.85-5.65); Red Cell Distribution Width 13.1 % (12.1-15.1); White Blood Count 6.42 10^3/uL (3.29-11.43)
[2025-02-24 09:48] LABS: Alanine Aminotransferase 19 U/L (0-41); Albumin Level 3.9 g/dL (3.5-5.2); Alkaline Phosphatase 76 U/L (40-130); Anion Gap 13.3 (5-19); Aspartate Amino Transferase 23 U/L (0-40); Blood Urea Nitrogen 9 mg/dL (6-20); Calcium 8.8 mg/dL (8.5-10.5); Carbon Dioxide 26 mmol/L (22-29); Chloride 105 mmol/L (98-107); Creatinine Clr Calc Pharmacy 176.2612; Globulin 2.5 g/dL (1.3-4.6); Glomerular Filtration Rate 118.8 mL/min (90-130); Glucose 106 mg/dL (65-115); Osmolality Calculated 289 mOsm/kg (285-295); Potassium 4.3 mmol/L (3.5-5.1); Sodium 140 mmol/L (136-145); Total Bilirubin 0.5 mg/dL (0.15-1.2); Total Protein 6.4 g/dL (6.6-8.7)
--- NOTE | 2025-02-24 10:41 | W.PM.NPUH&PS ---
Providers/Chief Complaint Admitting Physician: Yuan Wild Primary Care Provider: Des Flores Chief Complaint: ams HPI NPU History of Present Illness Micah Aguilar is a 24 year old male who presented to the emergency department with the following report: Chief Complaint: Altered Mental Status Stated Complaint: ams Time Seen by Provider: 02/22/25 09:05 Source: patient Mode of arrival: wheelchair Limitations: altered mental status History of Present Illness: Patient is a 24-year-old male presents to ED today from [facility]. He apparently showed up there this morning and had mildly slurred speech which continued to worsen thus prompting them to send him to the emergency department for evaluation. Patient tells me he took 800 mg of THC gummies this morning and drank some alcohol. Patient does not give me an intent when I ask. He can answer a few questions upon arrival but is significantly altered. Vitals are stable upon arrival. MD complaint: altered mental status Onset (ago): hour(s) Timing confirmed by: caregiver Severity: severe Consistency of symptoms: Getting Worse Context: alcohol abuse and drug abuse Associated symptoms: Reports no associated symptoms. He was admitted to the ICU for definitive treatment of those issues. A request was made after he was medically cleared for him to be transferred to the neuropsychiatric unit secondary to him being on a 96-hour hold. He was transferred to the neuropsychiatric unit and presents today reporting that he has been in a sober living facility called [facility]. He had gotten in there because he went to the crisis stabilization center and identified to them that he was having some difficulties with addiction and that he wanted and needed a place to go. They assisted [facility] in finding [facility] and has been in there for couple months he reports he denies any lethality but reports that last night or the night before when he came to the hospital that he had gotten high intake and a significant amount of Gummies to get high and that he did not think he would get that discombobulated so he returned to [facility] and they have a role that she can be high on the campus so they brought him here to the hospital. He had significant issues with altered mental status which led to him being taken to the ICU for further evaluation. He was eventually medically cleared and transferred to the unit yesterday. He reports that they also felt he needed to get back on his medication which he has been off for couple months but reports it was just that he has been so busy with work and everything. We reviewed his behavioral assessment and he identified this to be an accurate representation of what is going on currently. He was very focused on wanting to be discharged sooner rather than later. He denied any problems at this time and says that he would just like to make sure he is at work 02/25/2025. We discussed the risks, benefits and alternatives of restarting his medications and he understood and agreed to proceed as is documented in this note. Per his 01/14/2025 [facility] outpatient behavioral assessment: Admission Information Reason for Admission: Seeking assistance with obtaining a referral to substance use recovery facility. Chief Complaint: I am concerned about relapsing on alcohol/drugs . Current Presentation: Client appears well groomed & appropriately dressed for the weather. posture is rigid with client making appropriate levels of eye contact. Client was generally cooperative, appearing motivated to rejoin a [place] based recovery facility. Client's mood is anxious, with client frequently pacing the room and appearing fidgety throughout encounter. Speech is appropriate. Thought process is linear. Average insight/judgement. Client demonstrates awareness of potential triggers leading to relapse, although he appears motivation to restart on the path to sobriety, appearing in the planning stage of change. History Past Diagnosis and Psychiatric History: Self-reports Bipolar I Disorder. History Detail: Client endorses a history of substance use beginning at a very young age. Client reports multiple forms of substance use including fentanyl, methamphetamine, and other substances. He reports this led to poor behaviors and choices, noting it contributed to the decline in familial relationships and potential legal troubles. Client referenced stealing from his grandma, although he notes his grandmother has since forgiven him. Current Social/Environmental Situation Current Living Environment/Relationships: Currently unhoused. Client reports being admitted to [facility] a [place] recovery [place] until yesterday. Client states he had been caught with a bottle of alcohol which led to his subsequent removal from the program. While client does have familial support in the form of his Aunt, he is unable to reside with her due to strenuous relations with his Uncle. Client is currently unhoused and fears relapse of drugs if he is unable to be readmitted into another reover center. Do you have any relationships that are supportive of your recovery? (e.g., family, friends): Yes (Grandma, Aunt) What is your current living situation? (e.g., homeless, living with family): Yes (Currently unhoused, was engaged in services at [facility].) Do you currently live where others drink alcohol and/or use: No Are you currently involved in relationships or situations that pose a threat to your safety?: No Are you currently involved in relationships or situations that could negatively affect your recovery?: No Have you ever had hobbies? How do you spend free time? (e.g., interests; activities; recreation)?: Yes (Videogames, building PCs) Employment/Support Status Education Completed: Some college, was attending [employer]. Training or technical education completed:: Desires to go to school for coding Do you have a profession, trade, or skill?: No Do you have a valid crude [place] driver?s license?: No (No, stolen) Do you have an automobile available for use?: No How long was your longest full-time job?: [employer] ([employer]) 2 years Usual (or last) occupation? (specify): Last job was [employer] in [place]. Does someone contribute to your support in any way? Is patient receiving any regular support (i.e., gee, food, housing) from family/friend? Include spouse?s contribution; exclude support by an institution: Yes (Aunt) Usual employment pattern, past 3 years? Employment/Support Comments: Client would like to address substance use concerns first. How much money did you receive from the following sources in the past 30 days? Use Patient Rating Scale Use Interviewer Severity Rating Employment/Support Comments: Client does seek employment, noting it helps him stay focused and maintain sobriety. Client identifities a contributing facotr towards his relapse included being told he would be unable to work until he had been at the [facility] for another year. Substance Use History Are you currently experiencing withdrawal symptoms such as tremors, excessive sweating, rapid heart rate, blackouts, anxiety, vomiting. etc.?: No Do you get physically ill when you stop using alcohol/or drugs?: Yes (Slept for a week straight, depressive systems, ) Do you have a history of serious withdrawal, seizures, or life-threatening symptoms during withdrawal?: Yes Do you find yourself using more alcohol and/or other drugs than you intend to?: Yes (Relapsed on alcohol due to environmental stressors/familial stressors.) Alcohol or Other Drug Used past 6 months Prior use? (lifetime) Route of Use Frequency (past 6 months) Duration (of use) Date of last use Alcohol yes yes drink 1/5 per day 01/13/25 Amphetamines (meth, ice, crank) yes started at age 13th intraveneous eightball a day 07/29/24 Cocaine Heroin Opioid /Opiates (misuse or w/out prescription) no last year smoking frequent 12/29/22 Marijuana (cbd, dabs) yes yes daily 07/29/24 Sedatives (Benzo, sleep meds) (misuse or w/out prescription) Hallucinogens Inhalants Over the Counter (Cough syrup, Diet) Nicotine (cigarettes, chew, vape) yes started at 18 pack a day today Other Relapse, Cont. Use Are you aware of your triggers to use alcohol and/or drugs: Yes (Anxiety, familial/social stressors, depression. Has desire to feel good.) Please check of any of the following which you know are triggers for you:: Strong Cravings, Difficulty with feelings, Relationship problems and Environment Please Describe: Gets social anxiety and leans on alcohol as a coping mechanisms. What do you typically do if you are triggered: I start to feel corned and have to urge to run away. Have you ever tried to control your use, stop or cut down : Yes What does that look like: Was engaged in in-patient recovery services, was discharged from [facility] for breaking policy due to relapse on alcohol. 7.What is the longest period of time that you have gone without using alcohol and/or other drugs: Explain: 5 months. What helps you to not use drugs/alcohol, what doesn't help Explain: What Helps: Working, staying busy, not having to opportunity to use, keeping accountability. What doesnt help: being around it, difficulty with feelings, access to substances Readiness to Change Is your alcohol and/or other drug use affecting any of the following?: Work, Relationships, Mental Health and Physical Health Do you continue to use alcohol and/or other drugs despite having it affect you?: Yes How important is it for you to receive treatment for:: Alcohol: Extremely and Drugs: Extremely Is anyone making you seek treatment or asking you to be in recovery?: No Assessment Summary Strengths, Current Resources, Barriers to Treatment: Strengths: Love/motivation stemming from family support, Feels obligated to family, little sister, and his aunt. Current Resources: Aunt, little sister. Barriers to Treatment: Unhoused, financial instability, lack of community resources, lack of transportation. Assessment Summary Dialogue: Micah is a 24 year old male whom presents to the Crisis Center requesting assistance locating a [place] recovery facility. Client endorses a history of substance use, noting he had maintained sobriety for approximately 5 months. Micah notes having been a resident of [facility], which he identifies as being the primary motivating factor of his stint of sobriety. Client notes he had initially utilized the recovery facility after being hospitalized as a result of his past substance use. Client endorses severe symptoms of withdrawal during his hospitalization stay. Client does report being diagnosed as Bipolar one upon discharge from his hospitalization. While client was discahrge from the recovery fcility due to relapse on alcohol, client expresses a desire to reachieve sobriety by being readmitted into a [place] based facility. Identified Treatment Goals Identified Treatment Goal(s): Substance use services Plan of Care Treatment Plan Goal:? Client will achieve psychosocial wellbeing by maintaining sobriety. MICRO Objective: Client will achieve and maintain sobriety for 6 months Task a: Client will work with [facility] to secure admittance into [facility] recovery facility. Task b: Client will work with [facility] to identify triggers of substance use Task c: client will identify health coping mechanisms to mitigate potential relapse. Risks Suicide Risk Assessment In the last 30 days have you... Little interest or pleasure in doing things: several days Feeling down, depressed, or hopeless: several days PHQ-2 Score: 2 Total (If greater than 3 please do full PHQ-9): No Have you had suicidal thoughts?: Not At All Do you ever wish you weren't alive anymore?: Not At All Suicide Risk Score: 2 Patient score 3 or greater or had suicidal thoughts?: No Risk to Others Current or History of HI: Denies any homicidal thoughts, plans, intentions, or time frames Previous and/or current violence: No Previous and/or current threats (verbal/physical): No If both Yes, then complete full screening: No Other Self-Harm or Risk Taking Behaviors Other Risk Taking Behaviors:: High Risk Substance Use Protective Factors Protective Factors and Deterrents: Responsibility to family or others and Engaged in work or school Final Disposition of Risk Screening Final Disposition: No Emergency response: Safety planning Meds NPU Home Medications ?Medication ?Instructions ?Recorded ?Confirmed ?Last Taken ?Type aripiprazole (2 month) 960 mg/3.2 960 mg (3.2 mL) IM .every 2 months 01/10/25 02/22/25 Unknown Rx mL susp, extended rel IM syringe #3.2 mL (Abilify Asimtufii) atomoxetine 60 mg capsule 60 mg PO ONCE #90 caps 01/10/25 02/22/25 Unknown Rx azithromycin 250 mg tablet See Rx Instructions .Route .COMPLEX 02/22/25 02/22/25 Unknown History benzonatate 200 mg capsule 200 mg PO TID PRN Cough 02/22/25 02/22/25 Unknown History cetirizine 10 mg tablet (Zyrtec) 10 mg PO DAILY 02/22/25 02/22/25 Unknown History hydroxyzine HCl 50 mg tablet 50 mg PO BID 02/22/25 02/22/25 Unknown History Allergies Allergy/AdvReac Type Severity Reaction Status Date / Time No Known Allergies Allergy Verified 01/14/25 10:43 [facility] NPU PFSH: Medical History Anxiety and depression Surgical History History of surgery on arm left Social History Smoking and tobacco/nicotine status: former use of tobacco/nicotine Alcohol intake: former Substance/Drug Use: former Mental Status Exam MSE Comments: This is an overweight versus obese white male in hospital scrubs with adequate grooming and eye contact. No abnormal movements except for psychomotor retardation. Cooperative with exam and mild to moderate distress. Speech was decreased rate and volume. Mood described as better, affect congruent. Thought process organized. Thought content: Patient endorsed some suicidal ideation but denied homicidal ideation, there were no delusions reported or noted, he denied current auditory or visual hallucinations. Attention and concentration were intact And memory was mostly reliable but no more formally tested. He is alert and oriented times person and place. Insight, judgment and impulse control were limited versus impaired. Vitals/I&O/Wt Last Vital Signs Temp 98.8 F 02/23/25 17:02 Pulse 74 02/23/25 17:02 Resp 20 H 02/23/25 17:02 BP 145/85 02/23/25 17:02 Pulse Ox 95 02/23/25 17:02 O2 Del Method Room Air 02/23/25 14:30 O2 Flow Rate 2 02/22/25 11:28 02/23/25 02/23/25 02/23/25 06:59 14:59 22:59 Intake Total 1480 / 3960 1400 / 1400 Output Total 575 / 575 750 / 1325 Balance 1480 / 2610 825 / 825 -750 / 75 Weight last 48 hrs Weight 108.272 kg Weight 104.5 kg Weight 99.79 kg Physical Exam Urinary Catheter Management: Hussein: Cath Placed During This Visit: yes, but has since been removed by the nurse Reason for Continuing Indwelling Catheter: Decision to DC Catheter Urinary Catheter Date of Insertion: 02/22/25 Urinary Catheter Time of Insertion: 13:47 Date Urinary Catheter Removed: 02/22/25 Time Urinary Catheter Discontinued: 20:30 Data NPU 02/24/25 08:26 02/24/25 08:26 A&P Assessment and plan (1) ADD (attention deficit disorder): (2) Explosive personality disorder: (3) Bipolar 1 disorder: (4) History of drug abuse: (5) Cannabis use disorder, severe, dependence: Plan This is a 24-year-old white male with a significant history of mental health and addiction issues with reports of being in a sober living facility but off of his medication for the past 2 months. He reports that he wants to restart his medication and discharge as soon as possible to be able to get back to work. 1. Restart his medications. 2. Continue every 15 minute checks for safety. 3. Encourage individual, group and milieu therapies. 4. Encourage sober living treatment after discharge at the highest level of care to which he is willing to commit. 5. Get collateral information especially finding out where he has his outpatient services. 6. Evaluate against the backdrop of the 96-hour hold. PDMP PDMP Reviewed: Not Reviewed Attestations NPU Medical Necessity Statement*: Inpatient hospitalization is medically necessary and the clinically appropriate intervention at this time. We will monitor/initiate medications and make changes as indicated. He will be in the hospital for over 2 midnights. Likely length of stay 2-4 days. Coding Level of Care Code Acute Code for Chg Fwd Diagnoses ADD (attention deficit disorder) F98.8 Explosive personality disorder F60.3 Bipolar 1 disorder F31.9 History of drug abuse F19.11 Cannabis use disorder, severe, dependence F12.20
[2025-02-24 13:15] VITALS: BP 130/72; PULSE 95; RESP 17; TEMP 36.4; O2SAT 99
[2025-02-24] MEDS: OLANZapine 5 mg ODT PO (13:53)
--- NOTE | 2025-02-24 13:53 | PC.NURSE ---
prn Zyprexa Zydis 5 mg given po sublingual per pt c/o increased anxiety/agitation. wanting to be discharged today to get to his job at [employer] tomorrow. educated that physician would see him today & he could discuss potential discharge with him. verbalized understanding & took med willingly.
[2025-02-24] MEDS: haloperidol 5 mg Tablet PO (15:25)
[2025-02-24 20:00] VITALS: RESP 16
--- NOTE | 2025-02-24 20:00 | PC.NURSE ---
pt has had a rough day and is finally resting did not obtain vitals nurse notified with continue 15 min rounding
[2025-02-25 06:00] VITALS: BP 101/57; PULSE 73; RESP 16; O2SAT 96
[2025-02-25] MEDS: OLANZapine 5 mg ODT PO ×2 (08:29→14:54)
[2025-02-25] MEDS: nicotine 4 mg lozenge MUCOUS MEM ×2 (08:29→15:16)
[2025-02-25 08:51] LABS: Basophils % 0.2 %; Eosinophils # 0.1 10^3/uL (0.0-0.8); Eosinophils % 1.3 %; Hematocrit 43.9 % (37-53); Lymphocytes # 1.8 10^3/uL (0.8-4.8); Mean Corpuscular HGB Conc 33.7 g/dL (30-55); Mean Corpuscular Hemoglobin 28.8 pg (27-33); Mean Corpuscular Volume 85.4 fl (82-101); Mean Platelet Volume 10.3 fL (7.4-10.4); Monocytes # 0.6 10^3/uL (0.2-0.9); Monocytes % 6.7 %; Neutrophils # 6.96 10^3/uL (1.8-7.7); Neutrophils % 72.6 %; Nucleated Red Blood Cells % 0 %; Platelet Count 293 10^3/cmm (157-399); Red Blood Count 5.14 10^6/uL (3.85-5.65); Red Cell Distribution Width 12.9 % (12.1-15.1); White Blood Count 9.58 10^3/uL (3.29-11.43)
[2025-02-25 09:08] LABS: Alanine Aminotransferase 23 U/L (0-41); Albumin Level 3.9 g/dL (3.5-5.2); Alkaline Phosphatase 78 U/L (40-130); Anion Gap 14.9 (5-19); Aspartate Amino Transferase 21 U/L (0-40); Blood Urea Nitrogen 11 mg/dL (6-20); Calcium 8.9 mg/dL (8.5-10.5); Carbon Dioxide 24 mmol/L (22-29); Chloride 103 mmol/L (98-107); Creatinine Clr Calc Pharmacy 156.6766; Globulin 2.4 g/dL (1.3-4.6); Glomerular Filtration Rate 103.7 mL/min (90-130); Glucose 130 mg/dL (65-115); Osmolality Calculated 287 mOsm/kg (285-295); Potassium 3.9 mmol/L (3.5-5.1); Sodium 138 mmol/L (136-145); Total Bilirubin 0.5 mg/dL (0.15-1.2); Total Protein 6.3 g/dL (6.6-8.7)
[2025-02-25] MEDS: hyDROXYzine 25 mg Capsule 50 MG PO (12:51)
[2025-02-25 14:00] VITALS: RESP 18
[2025-02-25] MEDS: diphenhydrAMINE 50 mg/mL SDV 1mL IM (15:16)
[2025-02-25] MEDS: LORazepam 2 mg/mL INJ 1 mL IM (15:17)
[2025-02-25] MEDS: haloperidol inj 5 mg/mL INJ 1 mL IM (15:17)
--- NOTE | 2025-02-25 15:18 | PC.NURSE ---
Approximately 1448 the pt was observed in his room pushing up on the window and cussing tonia . Pt was advised not to mess with the windows to which pt replied well maybe if I wasn't held prisoner in here by these nadjan wardens in this on license of [facility] by that piece of shit doctor . The RN at this time tried to offer the pt a PRN medication and the pt ignored the offer and started ramming his body into the door that leads to the foyer, the pt repeatedly continued ramming into the door in attempt to escape. The second RN at this time called a code ten. The staff and additional staff that responded to the code, stayed with the pt while this ARCHEOLOGIST and another RN hakeem up a B52. The clerical warehouseman and information systems security officer were able to get the pt into his room and de-esclate the situation. It was decided to move the [facility] to [facility] for [facility]. The pt switched to the other side of the unit with no issues and the additional staff from the code ten left the unit. About approximately 5 minutes later, the pt begin pacing in his room and cussing again. The charge auditor talked with the pt and encouraged/educated the pt about receiving the B52 shot. The pt agreeded to take the shot willingly. The charge auditor administered 2mg IM Ativan & 5mg IM Haldol into the pts Right deltoid and this ARCHEOLOGIST administered 50mg IM Benadryl into the pts Left deltoid. The pt took the injections with no issues. The charge auditor stayed for a few minutes to therapeutically talk with the pt. The pt is now in the hallway, talking with other pts.
--- NOTE | 2025-02-25 16:28 | PC.NURSE ---
Code 10 This nurse entered the nurses station to see that patient was ramming the door with full force. This nurse witnessed the door separate from the frame each time. Patient had been agitated through out the day. This nurse and nurses Cecile and Paty used multiple deescalation techniques but patient continued to escalate. Following Code 10, patient was moved to room 155 on the south side for closer observation. Patient remained amped up. Patient agreed that injections would help to lower his aggression. This nurse and ELISE Huber administered B52 with no issues.
--- NOTE | 2025-02-25 17:19 | P.NPUPN_ITS ---
Subjective NPU 2 Subjective: Patient presented today reporting that he is doing okay. He identified that he is wanting to leave and ultimately ended up requiring a code 10 to be called secondary to not being able to be reasonable about the fact that there needed to be continued assessment of the situation given his suicide attempt or attempt to get extremely high in an unsafe manner that led to him being in the ICU. He did have having to be switched to the more acute side and given as needed medications. We discussed making sure that he was actually safe to discharge prior to discharging. He denied any side effects of medication. Mental Status Exam 2 MSE Comments: This is an overweight versus obese white male in hospital scrubs with adequate grooming and eye contact. No abnormal movements except for psychomotor retardation. Cooperative with exam and mild to moderate distress. Speech was decreased rate and volume. Mood described as better, affect congruent. Thought process organized. Thought content: Patient endorsed some suicidal ideation but denied homicidal ideation, there were no delusions reported or noted, he denied current auditory or visual hallucinations. Attention and concentration were intact And memory was mostly reliable but no more formally tested. He is alert and oriented times person and place. Insight, judgment and impulse control were limited versus impaired. Vitals/I&O/Wt Last Vital Signs Temp 97.6 F 02/24/25 13:15 Pulse 73 02/25/25 06:00 Resp 16 02/25/25 06:00 BP 101/57 02/25/25 06:00 Pulse Ox 96 02/25/25 06:00 O2 Del Method Room Air 02/24/25 13:15 O2 Flow Rate 2 02/22/25 11:28 Weight last 48 hrs Weight 105.857 kg Physical Exam 2 Urinary Catheter Management: Hussein: Cath Placed During This Visit: yes, but has since been removed by the nurse Reason for Continuing Indwelling Catheter: Decision to DC Catheter Urinary Catheter Date of Insertion: 02/22/25 Urinary Catheter Time of Insertion: 13:47 Date Urinary Catheter Removed: 02/22/25 Time Urinary Catheter Discontinued: 20:30 Data NPU 02/25/25 08:39 02/25/25 08:39 A&P Assessment and plan (1) ADD (attention deficit disorder): (2) Explosive personality disorder: (3) Bipolar 1 disorder: (4) History of drug abuse: (5) Cannabis use disorder, severe, dependence: Plan This is a 24-year-old white male with a significant history of mental health and addiction issues with reports of being in a sober living facility but off of his medication for the past 2 months. He reports that he wants to restart his medication and discharge as soon as possible to be able to get back to work. 1. Restart his medications. 2. Continue every 15 minute checks for safety. 3. Encourage individual, group and milieu therapies. 4. Encourage sober living treatment after discharge at the highest level of care to which he is willing to commit. 5. Get collateral information especially finding out where he has his outpatient services. 6. Evaluate against the backdrop of the 96-hour hold. PDMP PDMP Reviewed: Not Reviewed Involuntary Hold Information 2 Hold Status: Legal Status: 96 Hour Hold Date/Time Hold Expires: 02/28/25 @ 14:00 Attestations NPU 2 Medical Necessity Statement*: Inpatient hospitalization is medically necessary and the clinically appropriate intervention at this time. We will monitor/initiate medications and make changes as indicated. Likely length of stay 1-3 days. Coding Level of Care Code Acute Code for Chg Fwd Diagnoses ADD (attention deficit disorder) F98.8 Explosive personality disorder F60.3 Bipolar 1 disorder F31.9 History of drug abuse F19.11 Cannabis use disorder, severe, dependence F12.20
[2025-02-25 20:00] VITALS: BP 90/56; PULSE 69; RESP 16; TEMP 36.8; O2SAT 97
[2025-02-25 20:27] VITALS: BP 91/59; PULSE 61; RESP 17; TEMP 36.9; O2SAT 97
[2025-02-26 06:00] VITALS: BP 110/55; PULSE 71; RESP 16; TEMP 36.4
[2025-02-26] MEDS: nicotine 4 mg lozenge MUCOUS MEM ×4 (08:25→19:25)
[2025-02-26] MEDS: OLANZapine 5 mg ODT PO ×2 (08:45→15:13)
--- NOTE | 2025-02-26 13:26 | P.NPUPN_ITS ---
Subjective NPU 2 Subjective: Patient presented today reporting that he is doing okay. He reports that he is excepted to return to [facility] and that he was just being silly and getting high. He denies that it was a suicide attempt but we did discuss that high levels of drugs of addiction can often cope with unknown and unintended risks. He is looking forward to getting out early tomorrow so that he can start returning to work. We discussed the likelihood of that happening. He denied any side effects to his medications. Mental Status Exam 2 MSE Comments: This is an overweight versus obese white male in hospital scrubs with adequate grooming and eye contact. No abnormal movements. Cooperative with exam in no acute distress. Speech was more normal rate and volume. Mood described as better, affect congruent. Thought process organized. Thought content: Patient denied suicidal or homicidal ideation, there were no delusions reported or noted, he denied current auditory or visual hallucinations. Attention and concentration were intact And memory was mostly reliable but no more formally tested. He is alert and oriented times 3. Insight, judgment and impulse control were limited, but improving. Vitals/I&O/Wt Last Vital Signs Temp 97.6 F 02/26/25 06:00 Pulse 71 02/26/25 06:00 Resp 16 02/26/25 06:00 BP 110/55 02/26/25 06:00 Pulse Ox 97 02/25/25 20:27 O2 Del Method Room Air 02/26/25 06:00 O2 Flow Rate 95 02/26/25 06:00 Physical Exam 2 Urinary Catheter Management: Hussein: Cath Placed During This Visit: yes, but has since been removed by the nurse Reason for Continuing Indwelling Catheter: Decision to DC Catheter Urinary Catheter Date of Insertion: 02/22/25 Urinary Catheter Time of Insertion: 13:47 Date Urinary Catheter Removed: 02/22/25 Time Urinary Catheter Discontinued: 20:30 Data NPU 02/25/25 08:39 02/25/25 08:39 A&P Assessment and plan (1) ADD (attention deficit disorder): (2) Explosive personality disorder: (3) Bipolar 1 disorder: (4) History of drug abuse: (5) Cannabis use disorder, severe, dependence: Plan This is a 24-year-old white male with a significant history of mental health and addiction issues with reports of being in a sober living facility but off of his medication for the past 2 months. He reports that he wants to restart his medication and discharge as soon as possible to be able to get back to work. 1. Restart his medications. 2. Continue every 15 minute checks for safety. 3. Encourage individual, group and milieu therapies. 4. Encourage sober living treatment after discharge at the highest level of care to which he is willing to commit. 5. Get collateral information especially finding out where he has his outpatient services. 6. Evaluate against the backdrop of the 96-hour hold. PDMP PDMP Reviewed: Not Reviewed Involuntary Hold Information 2 Hold Status: Legal Status: 96 Hour Hold Date/Time Hold Expires: 02/28/25 @ 14:00 Attestations NPU 2 Medical Necessity Statement*: Inpatient hospitalization is medically necessary and the clinically appropriate intervention at this time. We will monitor/initiate medications and make changes as indicated. Likely length of stay 1-2 days. Coding Level of Care Code Acute Code for [facility] Fwd Diagnoses ADD (attention deficit disorder) F98.8 Explosive personality disorder F60.3 Bipolar 1 disorder F31.9 History of drug abuse F19.11 Cannabis use disorder, severe, dependence F12.20
[2025-02-26 14:00] VITALS: BP 124/74; PULSE 108; RESP 18; TEMP 36.5; O2SAT 97
[2025-02-26] MEDS: trazodone 50 mg Tablet PO (19:37)
[2025-02-26 20:07] VITALS: BP 145/77; PULSE 112; RESP 18; TEMP 36.4; O2SAT 97
[2025-02-27 06:00] VITALS: BP 104/64; PULSE 77; RESP 17; TEMP 37.1; O2SAT 95
[2025-02-27] MEDS: nicotine 4 mg lozenge MUCOUS MEM ×3 (06:35→12:00)
[2025-02-27] MEDS: hyDROXYzine 25 mg Capsule 50 MG PO (07:47)
[2025-02-27] MEDS: OLANZapine 5 mg ODT PO (08:40)
--- NOTE | 2025-02-27 12:46 | P.NPUDS_ITS ---
Diagnoses at Discharge Discharge Diagnosis (1) ADD (attention deficit disorder): Status: Acute (2) Explosive personality disorder: Status: Acute (3) Bipolar 1 disorder: Status: Acute (4) History of drug abuse: Status: Acute (5) Cannabis use disorder, severe, dependence: Status: Acute Reason for Visit Reason for Visit: ams Brief History: History of Present Illness Micah Aguilar is a 24 year old male who presented to the emergency department with the following report: Chief Complaint: Altered Mental Status Stated Complaint: ams Time Seen by Provider: 02/22/25 09:05 Source: patient Mode of arrival: wheelchair Limitations: altered mental status History of Present Illness: Patient is a 24-year-old male presents to ED today from [facility]. He apparently showed up there this morning and had mildly slurred speech which continued to worsen thus prompting them to send him to the emergency department for evaluation. Patient tells me he took 800 mg of THC gummies this morning and drank some alcohol. Patient does not give me an intent when I ask. He can answer a few questions upon arrival but is significantly altered. Vitals are stable upon arrival. MD complaint: altered mental status Onset (ago): hour(s) Timing confirmed by: caregiver Severity: severe Consistency of symptoms: Getting Worse Context: alcohol abuse and drug abuse Associated symptoms: Reports no associated symptoms. He was admitted to the ICU for definitive treatment of those issues. A request was made after he was medically cleared for him to be transferred to the neuropsychiatric unit secondary to him being on a 96-hour hold. He was transferred to the neuropsychiatric unit and presents today reporting that he has been in a sober living facility [facility]. He had gotten in there because he went to the crisis stabilization center and identified to them that he was having some difficulties with addiction and that he wanted and needed a place to go. [facility] and has been in there for couple months he reports he denies any lethality but reports that last night or the night before when he came to the hospital that he had gotten high intake and a significant amount of Gummies to get high and that he did not think he would get that discombobulated so he returned to [facility] and they have a role that she can be high on the campus so they brought him here to the hospital. He had significant issues with altered mental status which led to him being taken to the ICU for further evaluation. He was eventually medically cleared and transferred to the unit yesterday. He reports that they also felt he needed to get back on his medication which he has been off for couple months but reports it was just that he has been so busy with work and everything. We reviewed his behavioral assessment and he identified this to be an accurate representation of what is going on currently. He was very focused on wanting to be discharged sooner rather than later. He denied any problems at this time and says that he would just like to make sure he is at work 02/25/2025. We discussed the risks, benefits and alternatives of restarting his medications and he understood and agreed to proceed as is documented in this note. Per his 01/14/2025 [facility] [place] [place] Admission Information Reason for Admission: Seeking assistance with obtaining a referral to substance use recovery facility. Chief Complaint: I am concerned about relapsing on alcohol/drugs . Current Presentation: Client appears well groomed & appropriately dressed for the weather. posture is rigid with client making appropriate levels of eye contact. Client was generally cooperative, appearing motivated to rejoin a [facility] recovery facility. Client's mood is anxious, with client frequently pacing the room and appearing fidgety throughout encounter. Speech is appropriate. Thought process is linear. Average insight/judgement. Client demonstrates awareness of potential triggers leading to relapse, although he appears motivation to restart on the path to sobriety, appearing in the planning stage of change. History Past Diagnosis and Psychiatric History: Self-reports Bipolar I Disorder. History Detail: Client endorses a history of substance use beginning at a very young age. Client reports multiple forms of substance use including fentanyl, methamphetamine, and other substances. He reports this led to poor behaviors and choices, noting it contributed to the decline in familial relationships and potential legal troubles. Client referenced stealing from his grandma, although he notes his grandmother has since forgiven him. Current Social/Environmental Situation Current Living Environment/Relationships: Currently unhoused. Client reports being admitted to [facility], a [facility] recovery facility until yesterday. Client states he had been caught with a bottle of alcohol which led to his subsequent removal from the program. While client does have familial support in the form of his Aunt, he is unable to reside with her due to strenuous relations with his Uncle. Client is currently unhoused and fears relapse of drugs if he is unable to be readmitted into another reover center. Do you have any relationships that are supportive of your recovery? (e.g., family, friends): Yes (Grandma, Aunt) What is your current living situation? (e.g., homeless, living with family): Yes (Currently unhoused, was engaged in services at [facility].) Do you currently live where others drink alcohol and/or use: No Are you currently involved in relationships or situations that pose a threat to your safety?: No Are you currently involved in relationships or situations that could negatively affect your recovery?: No Have you ever had hobbies? How do you spend free time? (e.g., interests; activities; recreation)?: Yes (Videogames, building PCs) Employment/Support Status Education Completed: Some college, was attending [employer]. Training or technical education completed:: Desires to go to school for coding Do you have a profession, trade, or skill?: No Do you have a valid city driver?s license?: No (No, stolen) Do you have an automobile available for use?: No How long was your longest full-time job?: Tho at [employer] ([employer]) 2 years Usual (or last) occupation? (specify): Last job was [employer] in [place]. Does someone contribute to your support in any way? Is patient receiving any regular support (i.e., gee, food, housing) from family/friend? Include spouse?s contribution; exclude support by an institution: Yes (Aunt) Usual employment pattern, past 3 years? Employment/Support Comments: Client would like to address substance use concerns first. How much money did you receive from the following sources in the past 30 days? Use Patient Rating Scale Use Interviewer Severity Rating Employment/Support Comments: Client does seek employment, noting it helps him stay focused and maintain sobriety. Client identifities a contributing facotr towards his relapse included being told he would be unable to work until he had been at [facility] another year. Substance Use History Are you currently experiencing withdrawal symptoms such as tremors, excessive sweating, rapid heart rate, blackouts, anxiety, vomiting. etc.?: No Do you get physically ill when you stop using alcohol/or drugs?: Yes (Slept for a week straight, depressive systems, ) Do you have a history of serious withdrawal, seizures, or life-threatening symptoms during withdrawal?: Yes Do you find yourself using more alcohol and/or other drugs than you intend to?: Yes (Relapsed on alcohol due to environmental stressors/familial stressors.) Alcohol or Other Drug Used past 6 months Prior use? (life time) Route of Use Frequency (past 6 months) Duration (of use) Date of last use Alcohol yes yes drink 1/5 per day 01/13/25 Amphetamines (meth , ice, crank) yes started at age 13 th intraveneous eightball a day 07/29/24 Cocaine Heroin Opioid /Opiates (m isuse or w/out pre scription) no last year smoking frequent 12/29/22 Marijuana (cbd, da bs) yes yes daily 07/29/24 Sedatives (Benzo, sleep meds) (misus e or w/out prescri ption) Hallucinogens Inhalants Over the Counter ( Cough syrup, Diet) Nicotine (cigarett es, chew, vape) yes started at 18 pack a day today Other Relapse, Cont. Use Are you aware of your triggers to use alcohol and/or drugs: Yes (Anxiety, familial/social stressors, depression. Has desire to feel good.) Please check of any of the following which you know are triggers for you:: Strong Cravings, Difficulty with feelings, Relationship problems and Environment Please Describe: Gets social anxiety and leans on alcohol as a coping mechanisms. What do you typically do if you are triggered: I start to feel corned and have to urge to run away. Have you ever tried to control your use, stop or cut down : Yes What does that look like: Was engaged in in-patient recovery services, was discharged from [facility] for breaking policy due to relapse on alcohol. 7.What is the longest period of time sanjuana t you have gone without using alcohol and/or other drugs: Explain: 5 months. What helps you to not use drugs/alcohol, what doesn't help Explain: What Helps: Working, staying busy, not having to opportunity to use, keeping accountability. What doesnt help: being around it, difficulty with feelings, access to substances Readiness to Change Is your alcohol and/or other drug use affecting any of the following?: Work, Relationships, Mental Health and Physical Health Do you continue to use alcohol and/or other drugs despite having it affect you?: Yes How important is it for you to receive treatment for:: Alcohol: Extremely and Drugs: Extremely Is anyone making you seek treatment or asking you to be in recovery?: No Assessment Summary Strengths, Current Resources, Barriers to Treatment: Strengths: Love/motivation stemming from family support, Feels obligated to family, little sister, and his aunt. Current Resources: Aunt, little sister. Barriers to Treatment: Unhoused, financial instability, lack of community resources, lack of transportation. Assessment Summary Dialogue: Micah is a 24 year old male whom presents to the Crisis Center requesting assistance locating a [facility] recovery facility. Client endorses a history of substance use, noting he had maintained sobriety for approximately 5 months. Micah notes having been a resident of [facility] recovery facility, which he identifies as being the primary motivating factor of his stint of sobriety. Client notes he had initially utilized the recovery facility after pooja ng hospitalized as a result of his past substance use. Client endorses severe symptoms of withdrawal during his hospitalization stay. Client does report being diagnosed as Bipolar one upon discharge from his hospitalization. While client was discahrge from the recovery fcility due to relapse on alcohol, client expresses a desire to reachieve sobriety by being readmitted into a [facility] based facility. Identified Treatment Goals Identified Treatment Goal(s): Substance use services Hospital Course Hospital Course He slowly acclimated to the individual, group and milieu therapies. He presented after an overdose that he reported was just trying to get high after he was in a less altered mental status. He had a history of mental health treatment and have been off of his medications. Strattera 40 mg p.o. daily, Lexapro 10 mg p.o. every morning and Invega which were all past medications were restarted prior to discharge. He had been on the long-acting Abilify preparation. But we started back with the oral. He also got Vistaril for anxiety. He had no difficulty with the medications. That, abstinence from substances as well as the treatment milieu had a positive response. He worked with the social work team to establish appropriate follow-up services and was connected to appropriate community resources. He returned to the program [facility] that he had been staying at prior to admission. He was able to contract for safety outside of the hospital prior to discharge. During the hospitalization, patient had routine laboratory studies which were within normal limits except for few outliers. Additionally there was a general medical evaluation which was also within normal limits and revealed no new acute processes. At the time of discharge, he denied psychosis or lethality. Mood and anxiety were well managed. Patient endorsed a plan to avoid all drugs of abuse, and agreed to follow-up with the aftercare recommendations of the treatment team. Patient was evaluated and deemed to be absent credible lethality, and achieved maximum benefit from inpatient hospitalization, so he was discharged. Involuntary Hold Information Hold Status: Legal Status: 96 Hour Hold Date/Time Hold Expires: 02/28/25 @ 14:00 Mental Status Exam MSE Comments: This is an overweight versus obese white male in hospital scrubs with adequate grooming and eye contact. No abnormal movements. Cooperative with exam in no acute distress. Speech was more normal rate and volume. Mood described as better, affect congruent. Thought process organized. Thought content: Patient denied suicidal or homicidal ideation, there were no delusions reported or noted, he denied current auditory or visual hallucinations. Attention and concentration were intact And memory was mostly reliable but no more formally tested. He is alert and oriented times 3. Insight, judgment and impulse control were limited, but improving. Physical Exam Urinary Catheter Management: Hussein: Cath Placed During This Visit: yes, but has since been removed by the nurse Reason for Continuing Indwelling Catheter: Decision to DC Catheter Urinary Catheter Date of Insertion: 02/22/25 Urinary Catheter Time of Insertion: 13:47 Date Urinary Catheter Removed: 02/22/25 Time Urinary Catheter Discontinued: 20:30 Discharge Data Studies Completed and Pending: Completed Studies During Hospitalization Category Date Time Status CT head wo con* 7 [id number] Urgent Cat Scan 02/22/25 09:15 Completed XR chest 1V singh ble [id number] Urgent Exams 02/22/25 09:15 Completed XR hand RT min 3V * [id number] Routine Exams 02/22/25 16:04 Completed Radiology Impressions Chest X-Ray 02/22/25 09:15 IMPRESSION: 1. Negative chest. Head CT 02/22/25 09:15 IMPRESSION: 1. No evidence of intracranial hemorrha ge or mass effect. 2. RIGHT maxillary sinusitis. Polypoid mucosal thickening in the paranasal sinuses. 3. No acute intracranial findings. Hand X-Ray 02/22/25 16:04 IMPRESSION: No acute findings. Laboratory Results WBC 9.58 10^3/uL (3.2 9-11.43) 02/25/25 08:39 RBC 5.14 10^6/uL (3.8 5-5.65) 02/25/25 08:39 Hgb 14.80 g/dL (11.27 -16.99) 02/25/25 08:39 Hct 43.9 % (37-53) 02/25/25 08:39 MCV 85.4 fl (82-101) 02/25/25 08:39 MCH 28.8 pg (27-33) 02/25/25 08:39 MCHC 33.7 g/dL (30-55) 02/25/25 08:39 RDW 12.9 % (12.1-15.1 ) 02/25/25 08:39 Plt Count 293 10^3/cmm (157 -399) 02/25/25 08:39 MPV 10.3 fL (7.4-10.4 ) 02/25/25 08:39 Neut % (Auto) 72.6 % 02/25/25 08:39 Lymph % (Auto) 19.0 % 02/25/25 08:39 Burt % (Auto) 6.7 % 02/25/25 08:39 Eos % (Auto) 1.3 % 02/25/25 08:39 Baso % (Auto) 0.2 % 02/25/25 08:39 Neut # (Auto) 6.96 10^3/uL (1.8 -7.7) 02/25/25 08:39 Lymph # (Auto) 1.8 10^3/uL (0.8- 4.8) 02/25/25 08:39 Burt # (Auto) 0.6 10^3/uL (0.2- 0.9) 02/25/25 08:39 Eos # (Auto) 0.1 10^3/uL (0.0- 0.8) 02/25/25 08:39 Baso # (Auto) 0.0 10^3/uL (0.0- 0.1) 02/25/25 08:39 Nucleated RBC % (a uto) 0 % 02/25/25 08:39 Nucleated RBCs # 0.0 /100WBC 02/25/25 08:39 Sodium 138 mmol/L (136-1 45) 02/25/25 08:39 Potassium 3.9 mmol/L (3.5-5 .1) 02/25/25 08:39 Chloride 103 mmol/L (98-10 7) 02/25/25 08:39 Carbon Dioxide 24 mmol/L (22-29) 02/25/25 08:39 Anion Gap 14.9 (5-19) 02/25/25 08:39 BUN 11 mg/dL (6-20) 02/25/25 08:39 Creatinine 0.9 mg/dL (0.7-1. 2) 02/25/25 08:39 GFR Calculation 103.7 mL/min (90- 130) 02/25/25 08:39 Glucose 130 mg/dL (65-115 ) H 02/25/25 08:39 POC Glucose 109 mg/dL (70-110 ) 02/22/25 09:38 Calculated Osmolal ity 287 mOsm/kg (285- 295) 02/25/25 08:39 Calcium 8.9 mg/dL (8.5-10 .5) 02/25/25 08:39 Total Bilirubin 0.5 mg/dL (0.15-1 .2) 02/25/25 08:39 AST 21 U/L (0-40) 02/25/25 08:39 ALT 23 U/L (0-41) 02/25/25 08:39 Alkaline Phosphata se 78 U/L (40-130) 02/25/25 08:39 Total Protein 6.3 g/dL (6.6-8.7 ) L 02/25/25 08:39 Albumin 3.9 g/dL (3.5-5.2 ) 02/25/25 08:39 Globulin 2.4 g/dL (1.3-4.6 ) 02/25/25 08:39 Urine Color Yellow (Yellow) 02/22/25 13:25 Urine Appearance Clear (CLEAR) 02/22/25 13:25 Urine pH 5 (5-7) 02/22/25 13:25 Ur Specific Gravit y 1.020 (1.005-1.0 30) 02/22/25 13:25 Urine Protein Neg (Negative) 02/22/25 13:25 Urine Glucose (UA) Norm (Normal) 02/22/25 13:25 Urine Ketones Negative (Negati ve) 02/22/25 13:25 Urine Blood Neg (Negative) 02/22/25 13:25 Urine Nitrate Negative (Negati ve) 02/22/25 13:25 Urine Bilirubin Neg (Negative) 02/22/25 13:25 Urine Urobilinogen Neg mg/dL (Negati ve) 02/22/25 13:25 Ur Leukocyte Nathalie ase Negative (Negati ve) 02/22/25 13:25 Urine RBC 0-2 /hpf (0-2) 02/22/25 13:25 Urine WBC 0-5 /hpf (0-5) 02/22/25 13:25 Ur Squamous Epith Cells 0-5 /hpf (0-5) 02/22/25 13:25 Amorphous Sediment Not Reportable 02/22/25 13:25 Urine Bacteria None seen /hpf (N ONE) 02/22/25 13:25 Hyaline Casts 1.65 /lpf 02/22/25 13:25 Salicylates < 0.3 mg/dL (3-10 ) L 02/22/25 09:36 Urine Opiates Scre en Negative ng/mL (N egative) 02/22/25 13:25 Acetaminophen < 5.0 ug/mL (10-3 0) L 02/22/25 09:36 Ur Barbiturates Sc reen Negative ng/mL (N egative) 02/22/25 13:25 Ur Phencyclidine S crn Negative ng/mL (N egative) 02/22/25 13:25 Ur Amphetamines Sc reen Negative ng/mL (N egative) 02/22/25 13:25 U Benzodiazepines Scrn Negative ng/mL (N egative) 02/22/25 13:25 Urine Cocaine Scre en Negative ng/mL (N egative) 02/22/25 13:25 U Marijuana (THC) Screen Positive ng/mL (N egative) H 02/22/25 13:25 Ethyl Alcohol < 10 mg/dL (0-10) 02/22/25 09:36 Vitals: Last Vital Signs Temp 98.7 F 02/27/25 06:00 Pulse 77 02/27/25 06:00 Resp 17 02/27/25 06:00 BP 104/64 02/27/25 06:00 Pulse Ox 95 02/27/25 06:00 O2 Del Method Room Air 02/27/25 06:00 O2 Flow Rate 95 02/26/25 06:00 Discharge Plan Discharge Patient Disposition: Home Condition: Stable Prescriptions: New trazodone 50 mg Tablet 50 mg PO BEDTIME PRN (Reason: Sleep) 30 Days Qty: 30 1RF escitalopram oxalate 10 mg Tablet 10 mg PO DAILY 30 Days Qty: 30 1RF atomoxetine 40 mg Capsule 40 mg PO DAILY 30 Days Qty: 30 1RF paliperidone 3 mg Tablet Extended Release 24hr 3 mg PO DAILY 30 Days Qty: 30 1RF Continued cetirizine [Zyrtec] 10 mg tablet 10 mg PO DAILY benzonatate 200 mg capsule 200 mg PO TID PRN (Reason: Cough) hydroxyzine HCl 50 mg tablet 50 mg PO BID 30 Days Qty: 60 1RF Discontinued Abilify Asimtufii 960 mg/3.2 mL suspension,extended rel syring 960 mg IM .every 2 months Qty: 3.2 3RF atomoxetine 60 mg capsule 60 mg PO ONCE Qty: 90 1RF azithromycin 250 mg tablet See Rx Instructions .ROUTE .COMPLEX Rx Instructions: TAKE 2 TABLETS BY MOUTH ON DAY 1, AND THEN TAKE 1 TABLET BY MOUTH ONCE A DAY ON DAY 2 THROUGH DAY 5 Discharge Orders: Discharge Order (Routine); Ordered 02/27/25 Ordered By: Davin Rousseau Referrals: [facility] [Outside] - 03/01/25 10:30 am (Initial appointment [facility] Velazquez) Des Flores, WEB CONTENT MANAGER [Primary Care Provider] - Discharge Diet: Regular Discharge Activity: Resume usual activity Patient Instructions: Trazodone (By mouth), Escitalopram (By mouth) (Lexapro), Atomoxetine (By mouth) (Strattera), Paliperidone (By mouth) (Invega), Bipolar Disorder (DC), Altered Mental Status (ED), Opioid Safety Discharge Attestations NPU Time Spent in Discharge Care*: less than 30 min Specific Discharge Activities: Specific discharge activities: educating patient, discussing with employment evaluator/case manager/social workers/dc planners, documenting/other paperwork and evaluating patient/reviewing data Coding Level of Care Code Acute Code for [facility] Fwd Diagnoses ADD (attention deficit disorder) F98.8 Explosive personality disorder F60.3 Bipolar 1 disorder F31.9 History of drug abuse F19.11 Cannabis use disorder, severe, dependence F12.20
[2025-02-27 12:58] VITALS: BP 104/64; PULSE 77; RESP 17; TEMP 37.1; O2SAT 95
[2025-02-27] MEDS: escitalopram 10 mg Tablet PO (13:08)
[2025-02-27] MEDS: paliperidone ER 3 mg Tablet PO (13:08)
[2025-02-27] MEDS: atomoxetine 40 mg Capsule PO (13:09)
== END 2025-02-27 14:20 | disposition home or self-care (01) | DRG 918 ==
LOC: ER 12:05 → ICU 13:02 → NP 02-23 18:16
PROVIDERS: Admitting Provider Hospitalist; Emergency Provider Physician Assistant; PCP Nurse Practitioner Family; Visit Provider Psychiatry & Neurology Psychiatry
DX: T40.714A Poisoning by cannabis, undetermined, initial encounter (principal); Z59.00 Homelessness unspecified; R00.1 Bradycardia, unspecified; Y92.9 Unspecified place or not applicable; F31.9 Bipolar disorder, unspecified; Z87.891 Personal history of nicotine dependence; F98.8 Other specified behavioral and emotional disorders with onset usually occurring in childhood and adolescence; F60.3 Borderline personality disorder; F12.20 Cannabis dependence, uncomplicated
CPT/HCPCS: 36415; 36416; 51702; 70450; 71045; 73130; 80053; 80306; 80307; 81003; 82962; 85025; 93005; 96360; 96372; 97150; 97165; 99285; 99291; 99292; J1200; J1630; J1650; J2060; J3486; J7030; J7120; J9999

== ENCOUNTER 2025-03-05 04:14 | Inpatient (IN) | payer MEDICAID, SELFPAY ==
[2025-03-05 04:15] VITALS: BP 162/100; PULSE 79; RESP 18; TEMP 36.5; O2SAT 100; BMI 30.7
--- NOTE | 2025-03-05 04:33 | ECG_ITS ---
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 Measurements Intervals [place] Rate: 75 P: 70 HI: 136 QRS: 79 QRSD: 104 T: 51 QT: 395 QTc: 443 Interpretive Statements SINUS RHYTHM POSSIBLE LEFT ATRIAL ENLARGEMENT [-0.1mV P-WAVE IN V1/V2] INCOMPLETE RIGHT BUNDLE BRANCH BLOCK [90+ ms QRS DURATION, TERMINAL R IN V1/V2, 40+ ms S IN I/aVL/V4/V5/V6] INTERPRETATION BASED ON A DEFAULT AGE OF 40 YEARS Compared to ECG 02/22/2025 09:39:57 No significant changes Electronically Signed On 03-06-2025 21:34:40 CDT by Belinda Omer M.D. [email or web address]
--- NOTE | 2025-03-05 04:41 | XRR_ITS ---
PROCEDURE INFORMATION: Exam: XR Chest Exam date and time: 03/05/2025 4:44 AM Age: 24 years old Clinical indication: Other: AMS; Additional info: Psych TECHNIQUE: Imaging protocol: Radiologic exam of the chest. Views: 1 view. COMPARISON: CR XR chest 1V portable [id number] 02/22/2025 9:50 AM FINDINGS: Lungs: Unremarkable. No consolidation. Pleural spaces: Unremarkable. No pleural effusion. No pneumothorax. Heart/Mediastinum: Unremarkable. No cardiomegaly. Bones/joints: Unremarkable. XR/XR chest 1V portable [id number] IMPRESSION: No acute findings.
[2025-03-05 04:43] VITALS: RESP 18
[2025-03-05 04:53] LABS: Bacteria Urine None Seen /hpf; RBC Urine 0-2 /hpf (0-2); Squamous Epithelial Cell Urine 0-5 /hpf (0-5); WBC Urine 0-5 /hpf (0-5)
[2025-03-05 04:57] LABS: Amphetamines Screen Urine Negative (Negative); Barbiturates Screen Urine Negative (Negative); Benzodiazepines Screen Urine Negative (Negative); Cocaine Screen Urine Negative (Negative); Opiate Screen Urine Negative (Negative); PCP Screen Urine Negative (Negative); THC Screen Urine Positive (Negative)
[2025-03-05 04:58] LABS: Alanine Aminotransferase 33 U/L (0-41); Albumin Level 5.1 g/dL (3.5-5.2); Alkaline Phosphatase 103 U/L (40-130); Anion Gap 14.2 (5-19); Aspartate Amino Transferase 30 U/L (0-40); Blood Urea Nitrogen 16 mg/dL (6-20); Calcium 9.3 mg/dL (8.5-10.5); Carbon Dioxide 28 mmol/L (22-29); Chloride 105 mmol/L (98-107); Creatinine Clr Calc Pharmacy 152.3323; Globulin 2.9 g/dL (1.3-4.6); Glomerular Filtration Rate 103.7 mL/min (90-130); Glucose 86 mg/dL (65-115); Osmolality Calculated 296 mOsm/kg (285-295); Potassium 4.2 mmol/L (3.5-5.1); Sodium 143 mmol/L (136-145); Total Bilirubin 0.3 mg/dL (0.15-1.2)
[2025-03-05 05:05] LABS: Acetaminophen < 5.0 ug/mL (10-30); Alcohol Level < 10 mg/dL (0-10); Salicylate < 0.3 mg/dL (3-10)
[2025-03-05 05:11] LABS: Add Urine Microscopic? YES; Bilirubin Urine Neg (Negative); Blood Urine Neg (Negative); Glucose Urine UA Norm (Normal); Ketones Urine Negative (Negative); Leukocyte Esterase Urine Negative (Negative); Nitrate Urine Negative (Negative); Protein Urine Neg (Negative); Urine Appearance Clear (CLEAR); Urine Color Yellow (Yellow); Urobilinogen Urine 4 mg/dL (Negative); pH Urine 6 (5-7)
--- NOTE | 2025-03-05 05:20 | W.ED.ALCOHOL ---
HPI - Alcohol General: Chief Complaint: Alcohol Stated Complaint: MHE Time Seen by Provider: 03/05/25 05:01 History of Present Illness: Patient presents to the ER by the police for help with suicidal ideation. Patient said he got really drunk last night was having bad thoughts and he is afraid he would do something he did not want to do so he flagged police down and asked him to bring him here. Patient says been inpatient multiple times before per the chart it appears that he was admitted 02/22/2025 and discharged 02/27/25 patient was seen by Dr. Rousseau and Dr. Wild Related Data Home Medications ?Medication ?Instructions ?Recorded ?Confirmed benzonatate 200 mg capsule 200 mg PO TID PRN Cough 02/22/25 02/22/25 cetirizine 10 mg tablet (Zyrtec) 10 mg PO DAILY 02/22/25 02/22/25 Previous Rx's ?Medication ?Instructions ?Recorded atomoxetine 40 mg capsule 40 mg PO DAILY 30 days #30 caps 02/27/25 escitalopram oxalate 10 mg tablet 10 mg PO DAILY 30 days #30 tabs 02/27/25 hydroxyzine HCl 50 mg tablet 50 mg PO BID 30 days #60 tabs 02/27/25 paliperidone 3 mg tablet,extended 3 mg PO DAILY 30 days #30 tabs 02/27/25 release 24 hr trazodone 50 mg tablet 50 mg PO BEDTIME PRN Sleep 30 days 02/27/25 #30 tabs Allergies Allergy/AdvReac Type Severity Reaction Status Date / Time No Known Allergies Allergy Verified 03/05/25 04:21 Review of Systems General: Reports: 10 or more systems reviewed and unremarkable except in HPI and below PFSH ED PFSH: Medical History Anxiety and depression Surgical History History of surgery on arm left Social History Smoking and tobacco/nicotine status: former use of tobacco/nicotine Alcohol intake: former Substance/Drug Use: former Physical Exam Const: COMMON NORMALS: no acute distress, average body habitus, patient oriented x3, no limitations, healthy appearing, alert and well nourished HENMT: COMMON NORMALS: normocephalic, atraumatic, hearing grossly normal bilaterally, external ears normal, Normal external nose present, moist oral mucous membranes and oropharynx normal HEAD & SCALP: normocephalic and atraumatic NOSE: Normal external nose present EXTERNAL EAR: Yes external ears normal Neck/C-Spine: COMMON NORMALS: full ROM, no lymphadenopathy, supple, no meningeal signs and no JVD Chest: COMMONS NORMALS: normal inspection of the chest and normal palpation of entire chest wall Resp: COMMON NORMALS: normal respiratory effort, No retractions, No use of accessory muscles and clear to auscultation bilaterally AUSCULTATION: clear to auscultation bilaterally Cardio: COMMON NORMALS: no JVD, regular rate, regular rhythm, S1 normal heart sound present, S2 normal heart sound present, No gallops present (Cardio), No clicks present (Cardio), No murmurs present (Cardio) and No rub (Cardio) RATE: regular rate RHYTHM: regular rhythm HEART SOUNDS: S1 normal heart sound present and S2 normal heart sound present GI: COMMON NORMALS: Normal to inspection, nondistended, normoactive bowel sounds present, Soft to palpation, non-tender, No hepatosplenomegaly present and no masses PALPATION: Yes Soft to palpation and Yes No hepatosplenomegaly present Neuro: COMMON NORMALS: patient oriented x3 SENSORIUM/ORIENTATION: Yes alert MENINGEAL SIGNS: Yes no meningeal signs Course Vital Signs: Vital signs: Vital Signs Temperature 97.7 F 03/05/25 04:15 Pulse Rate 79 03/05/25 04:15 Respiratory Rate 18 03/05/25 04:43 Blood Pressure 162/100 03/05/25 04:15 Pulse Oximetry 100 03/05/25 04:15 Oxygen Delivery Me thod Room Air 03/05/25 04:15 MDM - Alcohol Medical Decision Making Once patient was cleared medically, Dr. Rousseau was called he wanted us to write an affidavit, 96-hour commit the patient and admit him to [facility] for Dr. Blanchard for further evaluation treatment. Possible medication adjustment. Medical Records I reviewed the patient's medical records. Lab Data I reviewed the patient's lab results. 03/05/25 04:37 03/05/25 04:37 Laboratory Results WBC Cancelled 03/05/25 04:37 Corrected WBC Cancelled 03/05/25 04:37 RBC Cancelled 03/05/25 04:37 Hgb Cancelled 03/05/25 04:37 Hct Cancelled 03/05/25 04:37 MCV Cancelled 03/05/25 04:37 MCH Cancelled 03/05/25 04:37 MCHC Cancelled 03/05/25 04:37 RDW Cancelled 03/05/25 04:37 Plt Count Cancelled 03/05/25 04:37 MPV Cancelled 03/05/25 04:37 Gran % Cancelled 03/05/25 04:37 Neut % (Auto) Cancelled 03/05/25 04:37 Lymph % (Auto) Cancelled 03/05/25 04:37 [place] % (Auto) Cancelled 03/05/25 04:37 Eos % (Auto) Cancelled 03/05/25 04:37 Baso % (Auto) Cancelled 03/05/25 04:37 Neut # (Auto) Cancelled 03/05/25 04:37 Lymph # (Auto) Cancelled 03/05/25 04:37 [place] # (Auto) Cancelled 03/05/25 04:37 Eos # (Auto) Cancelled 03/05/25 04:37 Baso # (Auto) Cancelled 03/05/25 04:37 Absolute Gran (auto) Cancelled 03/05/25 04:37 Nucleated RBC % (auto) Cancelled 03/05/25 04:37 Nucleated RBCs # Cancelled 03/05/25 04:37 Sodium 143 mmol/L (136-145) 03/05/25 04:37 Potassium 4.2 mmol/L (3.5-5.1) 03/05/25 04:37 Chloride 105 mmol/L (98-107) 03/05/25 04:37 Carbon Dioxide 28 mmol/L (22-29) 03/05/25 04:37 Anion Gap 14.2 (5-19) 03/05/25 04:37 BUN 16 mg/dL (6-20) 03/05/25 04:37 Creatinine 0.9 mg/dL (0.7-1.2) 03/05/25 04:37 GFR Calculation 103.7 mL/min (90-130) 03/05/25 04:37 Glucose 86 mg/dL (65-115) 03/05/25 04:37 Calculated Osmolality 296 mOsm/kg (285-295) H 04/08/25 04:37 Calcium 9.3 mg/dL (8.5-10.5) 03/05/25 04:37 Total Bilirubin 0.3 mg/dL (0.15-1.2) 03/05/25 04:37 AST 30 U/L (0-40) 03/05/25 04:37 ALT 33 U/L (0-41) 03/05/25 04:37 Alkaline Phosphatase 103 U/L (40-130) 03/05/25 04:37 Total Protein 8.0 g/dL (6.6-8.7) 03/05/25 04:37 Albumin 5.1 g/dL (3.5-5.2) 03/05/25 04:37 Globulin 2.9 g/dL (1.3-4.6) 03/05/25 04:37 Urine Color Yellow (Yellow) 03/05/25 04:32 Urine Appearance Clear (CLEAR) 03/05/25 04:32 Urine pH 6 (5-7) 03/05/25 04:32 Ur Specific [place] 1.020 (1.005-1.030) 03/05/25 04:32 Urine Protein Neg (Negative) 03/05/25 04:32 Urine Glucose (UA) Norm (Normal) 03/05/25 04:32 Urine Ketones Negative (Negative) 03/05/25 04:32 Urine Blood Neg (Negative) 03/05/25 04:32 Urine Nitrate Negative (Negative) 03/05/25 04:32 Urine Bilirubin Neg (Negative) 03/05/25 04:32 Urine Urobilinogen 4 mg/dL (Negative) H 03/05/25 04:32 Ur Leukocyte Esterase Negative (Negative) 03/05/25 04:32 Urine RBC 0-2 /hpf (0-2) 03/05/25 04:32 Urine WBC 0-5 /hpf (0-5) 03/05/25 04:32 Ur Squamous Epith Cells 0-5 /hpf (0-5) 03/05/25 04:32 Amorphous Sediment Not Reportable 03/05/25 04:32 Urine Bacteria None seen /hpf (NONE) 03/05/25 04:32 Hyaline Casts 0.40 /lpf 03/05/25 04:32 Salicylates < 0.3 mg/dL (3-10) L 03/05/25 04:37 Urine Opiates Screen Negative ng/mL (Negative) 03/05/25 04:32 Acetaminophen < 5.0 ug/mL (10-30) L 03/05/25 04:37 Ur Barbiturates Screen Negative ng/mL (Negative) 03/05/25 04:32 Ur Phencyclidine Scrn Negative ng/mL (Negative) 03/05/25 04:32 Ur Amphetamines Screen Negative ng/mL (Negative) 03/05/25 04:32 U Benzodiazepines Scrn Negative ng/mL (Negative) 03/05/25 04:32 Urine Cocaine Screen Negative ng/mL (Negative) 03/05/25 04:32 U Marijuana (THC) Screen Positive ng/mL (Negative) H 03/05/25 04:32 Ethyl Alcohol < 10 mg/dL (0-10) 03/05/25 04:37 All radiology interpretation(s) finalized by discharge Discharge Plan Discharge Patient Disposition: Admitted As Inpatient Clinical Impression: Cannabis use disorder, severe, dependence, Suicidal ideation Condition: Stable Coding Level of Care Code ED [employer] Care Technician for Dennise Barnard
[2025-03-05 06:04] LABS: Basophils % 0.6 %; Eosinophils % 0.8 %; Hematocrit 45.7 % (37-53); Lymphocytes % 39.7 %; Mean Corpuscular HGB Conc 33.9 g/dL (30-55); Mean Corpuscular Hemoglobin 29.1 pg (27-33); Mean Corpuscular Volume 85.9 fl (82-101); Mean Platelet Volume 9.7 fL (7.4-10.4); Monocytes # 0.4 10^3/uL (0.2-0.9); Monocytes % 6.9 %; Neutrophils # 2.62 10^3/uL (1.8-7.7); Neutrophils % 51.8 %; Nucleated Red Blood Cells % 0 %; Platelet Count 338 10^3/cmm (157-399); Red Blood Count 5.32 10^6/uL (3.85-5.65); White Blood Count 5.06 10^3/uL (3.29-11.43)
[2025-03-05 06:31] VITALS: BP 151/85; PULSE 79; RESP 20; O2SAT 100
--- NOTE | 2025-03-05 06:46 | PC.NURSE ---
96 Hour Hold Pt served with copy of 96 HH by this RN and security.
[2025-03-05 07:46] VITALS: BP 122/86; PULSE 66; RESP 18; TEMP 36.6; O2SAT 100
[2025-03-05] MEDS: paliperidone ER 3 mg Tablet PO (09:29)
[2025-03-05] MEDS: escitalopram 10 mg Tablet PO (09:29)
[2025-03-05] MEDS: cetirizine 10 mg Tablet PO (09:29)
[2025-03-05] MEDS: atomoxetine 40 mg Capsule PO (09:29)
[2025-03-05] MEDS: hyDROXYzine 25 mg Capsule 50 MG PO ×2 (10:37→21:12)
[2025-03-05] MEDS: nicotine 4 mg lozenge MUCOUS MEM ×3 (10:44→14:44)
[2025-03-05 14:00] VITALS: BP 151/76; PULSE 96; RESP 18; TEMP 37.1; O2SAT 98
[2025-03-05] MEDS: OLANZapine 5 mg ODT PO (14:44)
--- NOTE | 2025-03-05 16:12 | W.PM.NPUH&PS ---
Providers/Chief Complaint Admitting Physician: Davin Rousseau MD Primary Care Provider: Des Flores Chief Complaint: MHE HPI NPU History of Present Illness Micah Aguilar is a 24 year old male who presented to the emergency department with complaints of having suicidal ideation. The patient had reported to the emergency room staff that he was having thoughts that he may harm himself and reported that he had consumed alcohol the night before. The patient had no blood alcohol level. He had reported that he had been using marijuana as well. The patient stated that he had been discharged to [facility] as a potential placement for him to have senior living after he had been homeless for an unspecified amount of time. He had just been discharged less than a week ago from the neuropsychiatric unit. The patient reports that he is currently not suicidal. He had stated that he would like to eventually return to work but stated that he had a friend who was staying at another [facility] senior living and he would like to consider this as an option for him. He had reported no substantiative changes since his last hospitalization 1 week ago. Patient was an unreliable historian. Current medictions: Strattera 40mg at night, lexapro 10mg daily, paliperidone 3mg daily, hydroxyzine 50mg bid, trazodone 50mg at night Urine drug screen was positive for THC. Excerpt from NPU Discharge Summary from 02/27/25 Discharge Diagnosis (1) ADD (attention deficit disorder): Status: Acute (2) Explosive personality disorder: Status: Acute (3) Bipolar 1 disorder: Status: Acute (4) History of drug abuse: Status: Acute (5) Cannabis use disorder, severe, dependence: Status: Acute Reason for Visit Brief History: History of Present Illness Micah Aguilar is a 24 year old male who presented to the emergency department with the following report: Chief Complaint: Altered Mental Status Stated Complaint: ams Time Seen by Provider: 02/22/25 09:05 Source: patient Mode of arrival: wheelchair Limitations: altered mental status History of Present Illness: Patient is a 24-year-old male presents to ED today from [facility]. He apparently showed up there this morning and had mildly slurred speech which continued to worsen thus prompting them to send him to the emergency department for evaluation. Patient tells me he took 800 mg of THC gummies this morning and drank some alcohol. Patient does not give me an intent when I ask. He can answer a few questions upon arrival but is significantly altered. Vitals are stable upon arrival. MD complaint: altered mental status Onset (ago): hour(s) Timing confirmed by: caregiver Severity: severe Consistency of symptoms: Getting Worse Context: alcohol abuse and drug abuse Associated symptoms: Reports no associated symptoms. He was admitted to the ICU for definitive treatment of those issues. A request was made after he was medically cleared for him to be transferred to the neuropsychiatric unit secondary to him being on a 96-hour hold. He was transferred to the neuropsychiatric unit and presents today reporting that he has been in a sober living facility called [facility]. He had gotten in there because he went to the crisis stabilization center and identified to them that he was having some difficulties with addiction and that he wanted and needed a place to go. They assisted [facility] in finding [facility] and has been in there for couple months he reports he denies any lethality but reports that last night or the night before when he came to the hospital that he had gotten high intake and a significant amount of Gummies to get high and that he did not think he would get that discombobulated so he returned to [facility] and they have a role that she can be high on the campus so they brought him here to the hospital. He had significant issues with altered mental status which led to him being taken to the ICU for further evaluation. He was eventually medically cleared and transferred to the unit yesterday. He reports that they also felt he needed to get back on his medication which he has been off for couple months but reports it was just that he has been so busy with work and everything. We reviewed his behavioral assessment and he identified this to be an accurate representation of what is going on currently. He was very focused on wanting to be discharged sooner rather than later. He denied any problems at this time and says that he would just like to make sure he is at work 02/25/2025. We discussed the risks, benefits and alternatives of restarting his medications and he understood and agreed to proceed as is documented in this note. Per his 01/14/2025 [facility] behavioral [facility]: Admission Information Reason for Admission: Seeking assistance with obtaining a referral to substance use recovery facility. Chief Complaint: I am concerned about relapsing on alcohol/drugs . Current Presentation: Client appears well groomed & appropriately dressed for the weather. posture is rigid with client making appropriate levels of eye contact. Client was generally cooperative, appearing motivated to rejoin a [facility] recovery facility. Client's mood is anxious, with client frequently pacing the room and appearing fidgety throughout encounter. Speech is appropriate. Thought process is linear. Average insight/judgement. Client demonstrates awareness of potential triggers leading to relapse, although he appears motivation to restart on the path to sobriety, appearing in the planning stage of change. History Past Diagnosis and Psychiatric History: Self-reports Bipolar I Disorder. History Detail: Client endorses a history of substance use beginning at a very young age. Client reports multiple forms of substance use including fentanyl, methamphetamine, and other substances. He reports this led to poor behaviors and choices, noting it contributed to the decline in familial relationships and potential legal troubles. Client referenced stealing from his grandma, although he notes his grandmother has since forgiven him. Current Social/Environmental Situation Current Living Environment/Relationships: Currently unhoused. Client reports being admitted to [facility], a [facility] recovery facility until yesterday. Client states he had been caught with a bottle of alcohol which led to his subsequent removal from the program. While client does have familial support in the form of his Aunt, he is unable to reside with her due to strenuous relations with his Uncle. Client is currently unhoused and fears relapse of drugs if he is unable to be readmitted into another reover center. Do you have any relationships that are supportive of your recovery? (e.g., family, friends): Yes (Grandma, Aunt) What is your current living situation? (e.g., homeless, living with family): Yes (Currently unhoused, was engaged in services at [facility].) Do you currently live where others drink alcohol and/or use: No Are you currently involved in relationships or situations that pose a threat to your safety?: No Are you currently involved in relationships or situations that could negatively affect your recovery?: No Have you ever had hobbies? How do you spend free time? (e.g., interests; activities; recreation)?: Yes (Videogames, building PCs) Employment/Support Status Education Completed: Some college, was attending [employer]. Training or technical education completed:: Desires to go to school for coding Do you have a profession, trade, or skill?: No Do you have a valid feeder driver?s license?: No (No, stolen) Do you have an automobile available for use?: No How long was your longest full-time job?: Tho at [employer] ([employer] 2 years Usual (or last) occupation? (specify): Last job was [employer] in [place]. Does someone contribute to your support in any way? Is patient receiving any regular support (i.e., gee, food, housing) from family/friend? Include spouse?s contribution; exclude support by an institution: Yes (Aunt) Usual employment pattern, past 3 years? Employment/Support Comments: Client would like to address substance use concerns first. How much money did you receive from the following sources in the past 30 days? Use Patient Rating Scale Use Interviewer Severity Rating Employment/Support Comments: Client does seek employment, noting it helps him stay focused and maintain sobriety. Client identifities a contributing facotr towards his relapse included being told he would be unable to work until he had been at the [facility] for another year. Substance Use History Are you currently experiencing withdrawal symptoms such as tremors, excessive sweating, rapid heart rate, blackouts, anxiety, vomiting. etc.?: No Do you get physically ill when you stop using alcohol/or drugs?: Yes (Slept for a week straight, depressive systems, ) Do you have a history of serious withdrawal, seizures, or life-threatening symptoms during withdrawal?: Yes Do you find yourself using more alcohol and/or other drugs than you intend to?: Yes (Relapsed on alcohol due to environmental stressors/familial stressors.) Alcohol or Other Drug Used past 6 months Prior use? (life time) Route of Use Frequency(past 6 months) Duration (of use) Date of last use Alcohol yes yes drink 1/5 per day 01/13/25 Amphetamines (meth , ice, crank) yes started at age 13 th intraveneous eightball a day 07/29/24 Cocaine Heroin Opioid /Opiates (m isuse or w/out pre scription) no last year smoking frequent 12/29/22 Marijuana (cbd, da bs) yes yes daily 07/29/24 Sedatives (Benzo, sleep meds) (misus e or w/out prescri ption) Hallucinogens Inhalants Over the Counter ( Cough syrup, Diet) Nicotine (cigarett es, chew, vape) yes started at 18 pack a day today Other Relapse, Cont. Use Are you aware of your triggers to use alcohol and/or drugs: Yes (Anxiety, familial/social stressors, depression. Has desire to feel good.) Please check of any of the following which you know are triggers for you:: Strong Cravings, Difficulty with feelings, Relationship problems and Environment Please Describe: Gets social anxiety and leans on alcohol as a coping mechanisms. What do you typically do if you are triggered: I start to feel corned and have to urge to run away. Have you ever tried to control your use, stop or cut down : Yes What does that look like: Was engaged in in-patient recovery services, was discharged from [facility] for breaking policy due to relapse on alcohol. 7.What is the longest period of time that you have gone without using alcohol and/or other drugs: Explain: 5 months.What helps you to not use drugs/alcohol, what doesn't help Explain: What Helps: Working, staying busy, not having to opportunity to use, keeping accountability. What doesnt help: being around it, difficulty with feelings, access to substances Readiness to Change Is your alcohol and/or other drug use affecting any of the following?: Work, Relationships, Mental Health and Physical Health Do you continue to use alcohol and/or other drugs despite having it affect you?: Yes How important is it for you to receive treatment for:: Alcohol: Extremely and Drugs: Extremely Is anyone making you seek treatment or asking you to be in recovery?: No Assessment Summary Strengths, Current Resources, Barriers to Treatment: Strengths: Love/motivation stemming from family support, Feels obligated to family, little sister, and his aunt. Current Resources: Aunt, little sister. Barriers to Treatment: Unhoused, financial instability, lack of community resources, lack of transportation. Assessment Summary Dialogue: Micah is a 24 year old male whom presents to the Crisis Center requesting assistance locating a [facility] recovery facility. Client endorses a history of substance use, noting he had maintained sobriety for approximately 5 months. Micah notes having been a resident of [facility] recovery facility, which he identifies as being the primary motivating factor of his stint of sobriety. Client notes he had initially utilized the recovery facility after being hospitalized as a result of his past substance use. Client endorses severe symptoms of withdrawal during his hospitalization stay. Client does report being diagnosed as Bipolar one upon discharge from his hospitalization. While client was discahrge from the recovery fcility due to relapse on alcohol, client expresses a desire to reachieve sobriety by being readmitted into a [facility] based facility. Identified Treatment Goals Identified Treatment Goal(s): Substance use services Reason for Visit: [facility] Hospital Course Hospital Course He slowly acclimated to the individual, group and milieu therapies. He presented after an overdose that he reported was just trying to get high after he was in a less altered mental status. He had a history of mental health treatment and have been off of his medications. Strattera 40 mg p.o. daily, Lexapro 10 mg p.o. every morning and Invega which were all past medications were restarted prior to discharge. He had been on the long-acting Abilify preparation. But we started back with the oral. He also got Vistaril for anxiety. He had no difficulty with the medications. That, abstinence from substances as well as the treatment milieu had a positive response. He worked with the social work team to establish appropriate follow-up services and was connected to appropriate community resources. He returned to the program [facility] that he had been staying at prior to admission. He was able to contract for safety outside of the hospital prior to discharge. During the hospitalization, patient had routine laboratory studies which were within normal limits except for few outliers. Additionally there was a general medical evaluation which was also within normal limits and revealed no new acute processes. At the time of discharge, he denied psychosis or lethality. Mood and anxiety were well managed. Patient endorsed a plan to avoid all drugs of abuse, and agreed to follow-up with the aftercare recommendations of the treatment team. Patient was evaluated and deemed to be absent credible lethality, and achieved maximum benefit from inpatient hospitalization, so he was discharged. Meds NPU Home Medications ?Medication ?Instructions ?Recorded ?Confirmed ?Last Taken ?Type cetirizine 10 mg tablet (Zyrtec) 10 mg PO DAILY 02/22/25 03/05/25 Unknown History atomoxetine 40 mg capsule 40 mg PO DAILY 30 days #30 caps 04/02/25 04/08/25 Unknown Rx escitalopram oxalate 10 mg tablet 10 mg PO DAILY 30 days #30 tabs 02/27/25 03/05/25 Unknown Rx hydroxyzine HCl 50 mg tablet 50 mg PO BID 30 days #60 tabs 02/27/25 03/05/25 Unknown Rx paliperidone 3 mg tablet,extended 3 mg PO DAILY 30 days #30 tabs 02/27/25 03/05/25 Unknown Rx release 24 hr trazodone 50 mg tablet 50 mg PO BEDTIME PRN Sleep 30 days 02/27/25 03/05/25 Unknown Rx #30 tabs Allergies Allergy/AdvReac Type Severity Reaction Status Date / Time No Known Allergies Allergy Verified 03/05/25 04:21 PFSH NPU PFSH: Medical History Anxiety and depression Surgical History History of surgery on arm left Social History Smoking and tobacco/nicotine status: former use of tobacco/nicotine Alcohol intake: former Substance/Drug Use: former Mental Status Exam MSE Comments: This is an overweight versus obese white male in hospital scrubs with adequate grooming and eye contact. No abnormal involuntary motor movements. No evidence of stereotypies. He was Cooperative with exam in mild distress. Speech was monotone in quality and normal in volume and rate. Limited spontaneous speech mostly binary. Mood described as okay., affect was flat. Thought process was linear and concrete. Thought content: Patient denied homicidal ideation and endorsed suicidal ideation upon entry into hospital but denied it currently. There were no delusions reported or noted, he denied current auditory or visual hallucinations. Attention and concentration were intact Memory was mostly reliable but no more formally tested. He is alert and oriented times 3. Insight, judgment and impulse control were poor. Vitals/I&O/Wt Last Vital Signs Temp 98.7 F 03/05/25 14:00 Pulse 96 03/05/25 14:00 Resp 18 03/05/25 14:00 BP 151/76 03/05/25 14:00 Pulse Ox 98 03/05/25 14:00 O2 Del Method Room Air 03/05/25 07:40 03/05/25 03/05/25 03/05/25 06:59 14:59 22:59 Intake Total 0 / 0 Balance 0 / 0 Weight last 48 hrs Weight 99.79 kg Data NPU 03/05/25 05:56 03/05/25 04:37 A&P Assessment and plan (1) Impulse control disorder, unspecified: (2) ADD (attention deficit disorder): (3) Explosive personality disorder: (4) Bipolar 1 disorder: (5) History of drug abuse: (6) Cannabis use disorder, severe, dependence: Plan This is a 24-year-old white male with a significant history of mental health and addiction issues admitted with suicidal ideation with recent discharge less than a week ago. 1. Restart his medications. 2. Continue every 15 minute checks for safety. 3. Encourage individual, group and milieu therapies. 4. Encourage sober living treatment after discharge at the highest level of care to which he is willing to commit. 5. Get collateral information especially finding out where he has his outpatient services. PDMP PDMP Reviewed: Not Reviewed Involuntary Hold Information Hold Status: Legal Status: 96 Hour Hold Date/Time Hold Expires: 03/11/2025 @ 0555 Attestations NPU Medical Necessity Statement*: Inpatient hospitalization is medically necessary and the clinically appropriate intervention at this time. We will monitor/initiate medications and make changes as indicated. He will be in the hospital for over 2 midnights. Likely length of stay 2-4 days. Coding Level of Care Code Acute Code for [facility] Diagnoses Impulse control disorder, unspecified F63.9 ADD (attention deficit disorder) F98.8 Explosive personality disorder F60.3 Bipolar 1 disorder F31.9 History of drug abuse F19.11 Cannabis use disorder, severe, dependence F12.20
[2025-03-05 20:11] VITALS: BP 111/65; PULSE 59; RESP 18; O2SAT 97
[2025-03-05] MEDS: trazodone 50 mg Tablet PO (21:12)
[2025-03-06 06:00] VITALS: BP 93/54; PULSE 73; RESP 18; TEMP 36.6; O2SAT 96
[2025-03-06] MEDS: cetirizine 10 mg Tablet PO (08:52)
[2025-03-06] MEDS: nicotine 4 mg lozenge MUCOUS MEM ×3 (08:52→14:20)
[2025-03-06] MEDS: atomoxetine 40 mg Capsule PO (08:52)
[2025-03-06] MEDS: escitalopram 10 mg Tablet PO (08:52)
[2025-03-06] MEDS: paliperidone ER 3 mg Tablet PO (08:52)
[2025-03-06] MEDS: hyDROXYzine 25 mg Capsule 50 MG PO (12:24)
[2025-03-06 14:00] VITALS: BP 124/68; PULSE 86; RESP 18; TEMP 36.6; O2SAT 99
--- NOTE | 2025-03-06 14:17 | W.PM.NPUDCS ---
Diagnoses at Discharge Discharge Diagnosis (1) Impulse control disorder, unspecified: Status: Acute (2) ADD (attention deficit disorder): Status: Acute (3) Explosive personality disorder: Status: Acute (4) Bipolar 1 disorder: Status: Acute (5) History of drug abuse: Status: Acute (6) Cannabis use disorder, severe, dependence: Status: Acute Reason for Visit Reason for Visit: MHE Brief History: History of Present Illness Micah Aguilar is a 24 year old male who presented to the emergency department with complaints of having suicidal ideation. The patient had reported to the emergency room staff that he was having thoughts that he may harm himself and reported that he had consumed alcohol the night before. The patient had no blood alcohol level. He had reported that he had been using marijuana as well. The patient stated that he had been discharged to [facility] as a potential placement for him to have senior living after he had been homeless for an unspecified amount of time. He had just been discharged less than a week ago from the neuropsychiatric unit. The patient reports that he is currently not suicidal. He had stated that he would like to eventually return to work but stated that he had a friend who was staying at another [facility] senior living and he would like to consider this as an option for him. He had reported no substantiative changes since his last hospitalization 1 week ago. Patient was an unreliable historian. Current medictions: Strattera 40mg at night, lexapro 10mg daily, paliperidone 3mg daily, hydroxyzine 50mg bid, trazodone 50mg at night Urine drug screen was positive for THC. Excerpt from NPU Discharge Summary from 02/27/25 Discharge Diagnosis (1) ADD (attention deficit disorder): Status: Acute (2) Explosive personality disorder: Status: Acute (3) Bipolar 1 disorder: Status: Acute (4) History of drug abuse: Status: Acute (5) Cannabis use disorder, severe, dependence: Status: Acute Reason for Visit Brief History: History of Present Illness Micah Aguilar is a 24 year old male who presented to the emergency department with the following report: Chief Complaint: Altered Mental Status Stated Complaint: ams Time Seen by Provider: 02/22/25 09:05 Source: patient Mode of arrival: wheelchair Limitations: altered mental status History of Present Illness: Patient is a 24-year-old male presents to ED today from our [facility]. He apparently showed up there this morning and had mildly slurred speech which continued to worsen thus prompting them to send him to the emergency department for evaluation. Patient tells me he took 800 mg of THC gummies this morning and drank some alcohol. Patient does not give me an intent when I ask. He can answer a few questions upon arrival but is significantly altered. Vitals are stable upon arrival. MD complaint: altered mental status Onset (ago): hour(s) Timing confirmed by: caregiver Severity: severe Consistency of symptoms: Getting Worse Context: alcohol abuse and drug abuse Associated symptoms: Reports no associated symptoms. He was admitted to the ICU for definitive treatment of those issues. A request was made after he was medically cleared for him to be transferred to the neuropsychiatric unit secondary to him being on a 96-hour hold. He was transferred to the neuropsychiatric unit and presents today reporting that he has been in a sober living facility called [facility]. He had gotten in there because he went to the crisis stabilization center and identified to them that he was having some difficulties with addiction and that he wanted and needed a place to go. They assisted [facility] in finding [facility] and has been in there for couple months he reports he denies any lethality but reports that last night or the night before when he came to the hospital that he had gotten high intake and a significant amount of Gummies to get high and that he did not think he would get that discombobulated so he returned to [facility] and they have a role that she can be high on the campus so they brought him here to the hospital. He had significant issues with altered mental status which led to him being taken to the ICU for further evaluation. He was eventually medically cleared and transferred to the unit yesterday. He reports that they also felt he needed to get back on his medication which he has been off for couple months but reports it was just that he has been so busy with work and everything. We reviewed his behavioral assessment and he identified this to be an accurate representation of what is going on currently. He was very focused on wanting to be discharged sooner rather than later. He denied any problems at this time and says that he would just like to make sure he is at work 02/25/2025. We discussed the risks, benefits and alternatives of restarting his medications and he understood and agreed to proceed as is documented in this note. Per his 01/14/2025 [facility] [place] outpatient behavioral assessment: Admission Information Reason for Admission: Seeking assistance with obtaining a referral to substance use recovery facility. Chief Complaint: I am concerned about relapsing on alcohol/drugs . Current Presentation: Client appears well groomed & appropriately dressed for the weather. posture is rigid with client making appropriate levels of eye contact. Client was generally cooperative, appearing motivated to rejoin a [facility] recovery facility. Client's mood is anxious, with client frequently pacing the room and appearing fidgety throughout encounter. Speech is appropriate. Thought process is linear. Average insight/judgement. Client demonstrates awareness of potential triggers leading to relapse, although he appears motivation to restart on the path to sobriety, appearing in the planning stage of change. History Past Diagnosis and Psychiatric History: Self-reports Bipolar I Disorder. History Detail: Client endorses a history of substance use beginning at a very young age. Client reports multiple forms of substance use including fentanyl, methamphetamine, and other substances. He reports this led to poor behaviors and choices, noting it contributed to the decline in familial relationships and potential legal troubles. Client referenced stealing from his grandma, although he notes his grandmother has since forgiven him. Current Social/Environmental Situation Current Living Environment/Relationships: Currently unhoused. Client reports being admitted to [facility] a [facility] recovery facility until yesterday. Client states he had been caught with a bottle of alcohol which led to his subsequent removal from the program. While client does have familial support in the form of his Aunt, he is unable to reside with her due to strenuous relations with his Uncle. Client is currently unhoused and fears relapse of drugs if he is unable to be readmitted into another reover center. Do you have any relationships that are supportive of your recovery? (e.g., family, friends): Yes (Grandma, Aunt) What is your current living situation? (e.g., homeless, living with family): Yes (Currently unhoused, was engaged in services at [facility].) Do you currently live where others drink alcohol and/or use: No Are you currently involved in relationships or situations that pose a threat to your safety?: No Are you currently involved in relationships or situations that could negatively affect your recovery?: No Have you ever had hobbies? How do you spend free time? (e.g., interests; activities; recreation)?: Yes (Videogames, building PCs) Employment/Support Status Education Completed: Some college, was attending [employer]. Training or technical education completed:: Desires to go to school for coding Do you have a profession, trade, or skill?: No Do you have a valid transport driver?s license?: No (No, stolen) Do you have an automobile available for use?: No How long was your longest full-time job?: [employer]o at [employer]) 2 years Usual (or last) occupation? (specify): Last job was [employer], [employer] in [place]. Does someone contribute to your support in any way? Is patient receiving any regular support (i.e., gee, food, housing) from family/friend? Include spouse?s contribution; exclude support by an institution: Yes (Aunt) Usual employment pattern, past 3 years? Employment/Support Comments: Client would like to address substance use concerns first. How much money did you receive from the following sources in the past 30 days? Use Patient Rating Scale Use Interviewer Severity Rating Employment/Support Comments: Client does seek employment, noting it helps him stay focused and maintain sobriety. Client identifities a contributing facotr towards his relapse included being told he would be unable to work until he had been at the [facility] facility for another year. Substance Use History Are you currently experiencing withdrawal symptoms such as tremors, excessive sweating, rapid heart rate, blackouts, anxiety, vomiting. etc.?: No Do you get physically ill when you stop using alcohol/or drugs?: Yes (Slept for a week straight, depressive systems, ) Do you have a history of serious withdrawal, seizures, or life-threatening symptoms during withdrawal?: Yes Do you find yourself using more alcohol and/or other drugs than you intend to?: Yes (Relapsed on alcohol due to environmental stressors/familial stressors.) Alcohol or Other Drug Used past 6 months Prior use? (life time) Route of Use Frequency(past 6 months) Duration (of use) Date of last use Alcohol yes yes drink 1/5 per day 01/13/25 Amphetamines (meth , ice, crank) yes started at age 13 th intraveneous eightball a day 07/29/24 Cocaine Heroin Opioid /Opiates (m isuse or w/out pre scription) no last year smoking frequent 12/29/22 Marijuana (cbd, da bs) yes yes daily 07/29/24 Sedatives (Benzo, sleep meds) (misus e or w/out prescri ption) Hallucinogens Inhalants Over the Counter ( Cough syrup, Diet) Nicotine (cigarett es, chew, vape) yes started at 18 pack a day today Other Relapse, Cont. Use Are you aware of your triggers to use alcohol and/or drugs: Yes (Anxiety, familial/social stressors, depression. Has desire to feel good.) Please check of any of the following which you know are triggers for you:: Strong Cravings, Difficulty with feelings, Relationship problems and Environment Please Describe: Gets social anxiety and leans on alcohol as a coping mechanisms. What do you typically do if you are triggered: I start to feel corned and have to urge to run away. Have you ever tried to control your use, stop or cut down : Yes What does that look like: Was engaged in in-patient recovery services, was discharged from [facility] for breaking policy due to relapse on alcohol. 7.What is the longest period of time that you have gone without using alcohol and/or other drugs: Explain: 5 months.What helps you to not use drugs/alcohol, what doesn't help Explain: What Helps: Working, staying busy, not having to opportunity to use, keeping accountability. What doesnt help: being around it, difficulty with feelings, access to substances Readiness to Change Is your alcohol and/or other drug use affecting any of the following?: Work, Relationships, Mental Health and Physical Health Do you continue to use alcohol and/or other drugs despite having it affect you?: Yes How important is it for you to receive treatment for:: Alcohol: Extremely and Drugs: Extremely Is anyone making you seek treatment or asking you to be in recovery?: No Assessment Summary Strengths, Current Resources, Barriers to Treatment: Strengths: Love/motivation stemming from family support, Feels obligated to family, little sister, and his aunt. Current Resources: Aunt, little sister. Barriers to Treatment: Unhoused, financial instability, lack of community resources, lack of transportation. Assessment Summary Dialogue: Micah is a 24 year old male whom presents to the Crisis Center requesting assistance locating a [facility]-based recovery facility. Client endorses a history of substance use, noting he had maintained sobriety for approximately 5 months. Micah notes having been a resident of [facility] recovery facility, which he identifies as being the primary motivating factor of his stint of sobriety. Client notes he had initially utilized the recovery facility after being hospitalized as a result of his past substance use. Client endorses severe symptoms of withdrawal during his hospitalization stay. Client does report being diagnosed as Bipolar one upon discharge from his hospitalization. While client was discahrge from the recovery fcility due to relapse on alcohol, client expresses a desire to reachieve sobriety by being readmitted into a [place] based facility. Identified Treatment Goals Identified Treatment Goal(s): Substance use services Hospital Course Hospital Course He slowly acclimated to the individual, group and milieu therapies. He presented after an overdose that he reported was just trying to get high after he was in a less altered mental status. He had a history of mental health treatment and have been off of his medications. Strattera 40 mg p.o. daily, Lexapro 10 mg p.o. every morning and Invega which were all past medications were restarted prior to discharge. He had been on the long-acting Abilify preparation. But we started back with the oral. He also got Vistaril for anxiety. He had no difficulty with the medications. That, abstinence from substances as well as the treatment milieu had a positive response. He worked with the social work team to establish appropriate follow-up services and was connected to appropriate community resources. He returned to the program [facility] that he had been staying at prior to admission. He was able to contract for safety outside of the hospital prior to discharge. During the hospitalization, patient had routine laboratory studies which were within normal limits except for few outliers. Additionally there was a general medical evaluation which was also within normal limits and revealed no new acute processes. At the time of discharge, he denied psychosis or lethality. Mood and anxiety were well managed. Patient endorsed a plan to avoid all drugs of abuse, and agreed to follow-up with the aftercare recommendations of the treatment team. Patient was evaluated and deemed to be absent credible lethality, and achieved maximum benefit from inpatient hospitalization, so he was discharged. Hospital Course Hospital Course During the hospitalization, the patient had routine laboratory studies which were within normal limits except for a few outliers.? Additionally, there was a general medical evaluation which was also within normal limits and revealed no new acute processes.? At the time of discharge, lethality was denied and patient continued to report chronic problems with attention and concentration. Strattera was increased to 40mg twice a day prior to discharge. He had accepted desire to go to [facility] for further extended stay to maintain sobriety and avoid homelessness. ? Mood and anxiety were well managed.? The patient endorsed a plan to avoid all drugs of abuse and follow up with the aftercare recommendations of the treatment team.? The patient was evaluated and deemed to be absent credible lethality and had achieved the maximum benefit from an inpatient hospitalization, and so was discharged. ? Involuntary Hold Information Hold Status: Legal Status: 96 Hour Hold Date/Time Hold Expires: 03/11/2025 @ 0555 Mental Status Exam MSE Comments: This is an overweight versus obese white male in hospital scrubs with adequate grooming and eye contact. No abnormal involuntary motor movements. No evidence of stereotypies. He was cooperative with exam in mild distress. Speech was monotone in quality and normal in volume and rate. Limited spontaneous speech mostly binary. Mood described as good. His affect was flat. Thought process was linear and concrete. Thought content: Patient denied homicidal ideation and denied suicidal ideation on discharge. There were no delusions reported or noted, he denied current auditory or visual hallucinations. Attention span remained poor. Memory was mostly reliable but no more formally tested. He is alert and oriented x3. Insight, judgment and impulse control were limited. Discharge Data Studies Completed and Pending: Completed Studies During Hospitalization Category Date Time Status XR chest 1V singh ble [id number] Stat Exams 03/05/25 04:41 Completed Radiology Impressions Chest X-Ray 03/05/25 04:41 IMPRESSION: No acute findings. Laboratory Results WBC 5.06 10^3/uL (3.2 9-11.43) 03/05/25 05:56 Corrected WBC Cancelled 03/05/25 04:37 RBC 5.32 10^6/uL (3.8 5-5.65) 03/05/25 05:56 Hgb 15.50 g/dL (11.27 -16.99) 03/05/25 05:56 Hct 45.7 % (37-53) 03/05/25 05:56 MCV 85.9 fl (82-101) 03/05/25 05:56 MCH 29.1 pg (27-33) 03/05/25 05:56 MCHC 33.9 g/dL (30-55) 03/05/25 05:56 RDW 13.0 % (12.1-15.1 ) 03/05/25 05:56 Plt Count 338 10^3/cmm (157 -399) 03/05/25 05:56 MPV 9.7 fL (7.4-10.4) 03/05/25 05:56 Gran % Cancelled 03/05/25 04:37 Neut % (Auto) 51.8 % 03/05/25 05:56 Lymph % (Auto) 39.7 % 03/05/25 05:56 Wells % (Auto) 6.9 % 03/05/25 05:56 Eos % (Auto) 0.8 % 03/05/25 05:56 Baso % (Auto) 0.6 % 03/05/25 05:56 Neut # (Auto) 2.62 10^3/uL (1.8 -7.7) 03/05/25 05:56 Lymph # (Auto) 2.0 10^3/uL (0.8- 4.8) 03/05/25 05:56 Wells # (Auto) 0.4 10^3/uL (0.2- 0.9) 03/05/25 05:56 Eos # (Auto) 0.0 10^3/uL (0.0- 0.8) 03/05/25 05:56 Baso # (Auto) 0.0 10^3/uL (0.0- 0.1) 03/05/25 05:56 Absolute Gran (aut o) Cancelled 03/05/25 04:37 Nucleated RBC % (a uto) 0 % 03/05/25 05:56 Nucleated RBCs # 0.0 /100WBC 03/05/25 05:56 Sodium 143 mmol/L (136-1 45) 03/05/25 04:37 Potassium 4.2 mmol/L (3.5-5 .1) 03/05/25 04:37 Chloride 105 mmol/L (98-10 7) 03/05/25 04:37 Carbon Dioxide 28 mmol/L (22-29) 03/05/25 04:37 Anion Gap 14.2 (5-19) 03/05/25 04:37 BUN 16 mg/dL (6-20) 03/05/25 04:37 Creatinine 0.9 mg/dL (0.7-1. 2) 03/05/25 04:37 GFR Calculation 103.7 mL/min (90- 130) 03/05/25 04:37 Glucose 86 mg/dL (65-115) 03/05/25 04:37 Calculated Osmolal ity 296 mOsm/kg (285- 295) H 03/05/25 04:37 Calcium 9.3 mg/dL (8.5-10 .5) 03/05/25 04:37 Total Bilirubin 0.3 mg/dL (0.15-1 .2) 03/05/25 04:37 AST 30 U/L (0-40) 03/05/25 04:37 ALT 33 U/L (0-41) 03/05/25 04:37 Alkaline Phosphata se 103 U/L (40-130) 03/05/25 04:37 Total Protein 8.0 g/dL (6.6-8.7 ) 03/05/25 04:37 Albumin 5.1 g/dL (3.5-5.2 ) 03/05/25 04:37 Globulin 2.9 g/dL (1.3-4.6 ) 03/05/25 04:37 Urine Color Yellow (Yellow) 03/05/25 04:32 Urine Appearance Clear (CLEAR) 03/05/25 04:32 Urine pH 6 (5-7) 03/05/25 04:32 Ur Specific Gravit y 1.020 (1.005-1.0 30) 03/05/25 04:32 Urine Protein Neg (Negative) 03/05/25 04:32 Urine Glucose (UA) Norm (Normal) 03/05/25 04:32 Urine Ketones Negative (Negati ve) 03/05/25 04:32 Urine Blood Neg (Negative) 03/05/25 04:32 Urine Nitrate Negative (Negati ve) 03/05/25 04:32 Urine Bilirubin Neg (Negative) 03/05/25 04:32 Urine Urobilinogen 4 mg/dL (Negative ) H 03/05/25 04:32 Ur Leukocyte Nathalie ase Negative (Negati ve) 03/05/25 04:32 Urine RBC 0-2 /hpf (0-2) 03/05/25 04:32 Urine WBC 0-5 /hpf (0-5) 03/05/25 04:32 Ur Squamous Epith Cells 0-5 /hpf (0-5) 03/05/25 04:32 Amorphous Sediment Not Reportable 03/05/25 04:32 Urine Bacteria None seen /hpf (N ONE) 03/05/25 04:32 Hyaline Casts 0.40 /lpf 03/05/25 04:32 Salicylates < 0.3 mg/dL (3-10 ) L 03/05/25 04:37 Urine Opiates Scre en Negative ng/mL (N egative) 03/05/25 04:32 Acetaminophen < 5.0 ug/mL (10-3 0) L 03/05/25 04:37 Ur Barbiturates Sc reen Negative ng/mL (N egative) 03/05/25 04:32 Ur Phencyclidine S crn Negative ng/mL (N egative) 03/05/25 04:32 Ur Amphetamines Sc reen Negative ng/mL (N egative) 03/05/25 04:32 U Benzodiazepines Scrn Negative ng/mL (N egative) 03/05/25 04:32 Urine Cocaine Scre en Negative ng/mL (N egative) 03/05/25 04:32 U Marijuana (THC) Screen Positive ng/mL (N egative) H 03/05/25 04:32 Ethyl Alcohol < 10 mg/dL (0-10) 03/05/25 04:37 Vitals: Last Vital Signs Temp 97.8 F 03/06/25 06:00 Pulse 73 03/06/25 06:00 Resp 18 03/06/25 06:00 BP 93/54 03/06/25 06:00 Pulse Ox 96 03/06/25 06:00 O2 Del Method Room Air 03/06/25 06:00 Discharge Plan Discharge Patient Disposition: Home Condition: Stable Prescriptions: New atomoxetine 40 mg Capsule 40 mg PO BID 30 Days Qty: 60 1RF Continued cetirizine [Zyrtec] 10 mg tablet 10 mg PO DAILY trazodone 50 mg Tablet 50 mg PO BEDTIME PRN (Reason: Sleep) 30 Days Qty: 30 1RF escitalopram oxalate 10 mg Tablet 10 mg PO DAILY 30 Days Qty: 30 1RF paliperidone 3 mg Tablet Extended Release 24hr 3 mg PO DAILY 30 Days Qty: 30 1RF hydroxyzine HCl 50 mg tablet 50 mg PO BID 30 Days Qty: 60 1RF Discontinued atomoxetine 40 mg Capsule 40 mg PO DAILY 30 Days Qty: 30 1RF Discharge Orders: Discharge Order (Routine); Ordered 03/06/25 Ordered By: Miguel Montague Referrals: [facility] [Outside] - 03/13/25 10:30 am (Assessment for services with Hailey Suresh) Des Flores, SEARCH ENGINE OPTIMIZATION MANAGER [Primary Care Provider] - Discharge Diet: Usual diet Discharge Activity: Resume usual activity Patient Instructions: Opioid Safety Discharge Attestations NPU Time Spent in Discharge Care*: less than 30 min Specific Discharge Activities: Specific discharge activities: educating patient and documenting/other paperwork Coding Level of Care Code Acute Code for [facility] Fwd Diagnoses Impulse control disorder, unspecified F63.9 ADD (attention deficit disorder) F98.8 Explosive personality disorder F60.3 Bipolar 1 disorder F31.9 History of drug abuse F19.11 Cannabis use disorder, severe, dependence F12.20
[2025-03-06 14:36] VITALS: BP 93/54; PULSE 73; RESP 16; TEMP 36.6; O2SAT 96
== END 2025-03-06 15:42 | disposition home or self-care (01) | DRG 883 ==
LOC: ER 05:47 → NP 06:26
PROVIDERS: Admitting Provider Psychiatry & Neurology Psychiatry; Emergency Provider Emergency Medicine; PCP Nurse Practitioner Family; Visit Provider Psychiatry & Neurology Psychiatry
DX: F63.81 Intermittent explosive disorder (principal); R45.851 Suicidal ideations; F41.9 Anxiety disorder, unspecified; Z87.891 Personal history of nicotine dependence; F12.20 Cannabis dependence, uncomplicated; F98.8 Other specified behavioral and emotional disorders with onset usually occurring in childhood and adolescence; F31.9 Bipolar disorder, unspecified
CPT/HCPCS: 36415; 71045; 80053; 80306; 80307; 81001; 85025; 93005; 97150; 97165; 99285; J9999

== ENCOUNTER 2025-05-07 11:35 | Emergency (ER) | payer MEDICAID, SELFPAY ==
[2025-05-07 11:38] VITALS: BP 137/80; PULSE 91; RESP 20; TEMP 36.4; O2SAT 97; BMI 30.7
--- NOTE | 2025-05-07 11:57 | ECG_ITS ---
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 Measurements Intervals [place] Rate: 72 P: 59 SD: 143 QRS: 79 QRSD: 95 T: 56 QT: 408 QTc: 447 Interpretive Statements SINUS RHYTHM POSSIBLE RIGHT VENTRICULAR CONDUCTION DELAY [RSR (QR) IN V1/V2] Compared to ECG 03/05/2025 04:35:08 Incomplete right bundle-branch block no longer present Electronically Signed On 05-08-2025 22:04:51 CDT by Belinda Omer M.D. [id number] [id number]
--- NOTE | 2025-05-07 11:57 | XRR_ITS ---
PROCEDURE INFORMATION: Exam: XR Chest Exam date and time: 05/07/2025 11:59 AM Age: 24 years old Clinical indication: Dyspnea; Additional info: Dyspnea/cough TECHNIQUE: Imaging protocol: Radiologic exam of the chest. Views: 1 view. COMPARISON: CR XR chest 1V portable [id number] 03/05/2025 4:44 AM FINDINGS: Lungs: Unremarkable. No consolidation. Pleural spaces: Unremarkable. No pleural effusion. No pneumothorax. Heart/Mediastinum: Unremarkable. No cardiomegaly. Bones/joints: Unremarkable. XR/XR chest 1V portable [id number] IMPRESSION: No acute findings.
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
[2025-05-07] MEDS: ondansetron 2 mg/ML SDV 2 mL 4 MG IVP (12:24)
[2025-05-07] MEDS: sodium chloride 0.9% 1,000 ML 999 ML IV ×2 (12:24→13:18)
[2025-05-07 12:29] VITALS: BP 138/76; PULSE 75; RESP 16; O2SAT 97
[2025-05-07 12:32] VITALS: BP 122/72; PULSE 70; RESP 16; O2SAT 98
[2025-05-07 12:32] LABS: Basophils % 0.6 %; Eosinophils # 0.2 10^3/uL (0.0-0.8); Eosinophils % 2.8 %; Hematocrit 43.5 % (37-53); Lymphocytes # 1.7 10^3/uL (0.8-4.8); Lymphocytes % 24.5 %; Mean Corpuscular HGB Conc 32.9 g/dL (30-55); Mean Corpuscular Hemoglobin 29.1 pg (27-33); Mean Corpuscular Volume 88.4 fl (82-101); Mean Platelet Volume 10.8 fL (7.4-10.4); Monocytes # 0.5 10^3/uL (0.2-0.9); Monocytes % 6.8 %; Neutrophils # 4.44 10^3/uL (1.8-7.7); Neutrophils % 65.2 %; Nucleated Red Blood Cells % 0 %; Platelet Count 234 10^3/cmm (157-399); Red Blood Count 4.92 10^6/uL (3.85-5.65); Red Cell Distribution Width 13.2 % (12.1-15.1); White Blood Count 6.81 10^3/uL (3.29-11.43)
[2025-05-07 12:53] LABS: Alanine Aminotransferase 20 U/L (0-41); Albumin Level 4.1 g/dL (3.5-5.2); Alkaline Phosphatase 96 U/L (40-130); Aspartate Amino Transferase 25 U/L (0-40); Blood Urea Nitrogen 20 mg/dL (6-20); Calcium 8.5 mg/dL (8.5-10.5); Carbon Dioxide 20 mmol/L (22-29); Chloride 107 mmol/L (98-107); Creatinine Clr Calc Pharmacy 137.0991; Globulin 2.1 g/dL (1.3-4.6); Glomerular Filtration Rate 91.8 mL/min (90-130); Glucose 135 mg/dL (65-115); Lipase 97 U/L (13-60); Magnesium 2.3 mg/dL (1.7-2.3); Osmolality Calculated 293 mOsm/kg (285-295); Sodium 139 mmol/L (136-145); Total Bilirubin 0.5 mg/dL (0.15-1.2); Total Protein 6.2 g/dL (6.6-8.7)
[2025-05-07 12:54] LABS: Lactic Sepsis W/Reflex 2.1 mmol/L (0.5-2.2)
[2025-05-07 13:04] LABS: HIV 1 & 2 Antibody Non-Reactive (Non-Reactiv); HIV 1 & 2 Antigen Non-Reactive (Non-Reactiv)
[2025-05-07 13:13] LABS: Bilirubin Urine 1+ (Negative); Blood Urine Negative (Negative); Glucose Urine UA Trace (Normal); Ketones Urine Trace (Negative); Leukocyte Esterase Urine Negative (Negative); Nitrate Urine Negative (Negative); Protein Urine 2+ (Negative); Urine Appearance Clear (CLEAR); Urine Color Dark Yellow (Yellow); pH Urine 5.5 (5-7)
[2025-05-07 13:15] LABS: Add Urine Microscopic? YES; Bacteria Urine None Seen /hpf; Hyaline Casts Urine 11.57 /lpf; RBC Urine 0-2 /hpf (0-2); Squamous Epithelial Cell Urine 0-5 /hpf (0-5); WBC Urine 0-5 /hpf (0-5)
[2025-05-07 13:16] LABS: Add Urine Culture? No; Specific Gravity, Urine 1.058 (1.005-1.030); UA Slide Review UA Slide Review Perf
[2025-05-07 13:25] LABS: Hepatitis A Antibody IgM Non-Reactive (Nonreactive); Hepatitis B Core IgM Non-Reactive (Nonreactive); Hepatitis B Surface Antigen Non-Reactive (Nonreactive); Hepatitis C Virus Antibody Non-Reactive (Nonreactive)
[2025-05-07 13:56] VITALS: BP 136/68; PULSE 78; RESP 18; O2SAT 97
[2025-05-07 14:00] VITALS: BP 131/53; PULSE 76; RESP 18; O2SAT 97
[2025-05-07 14:15] LABS: Reflex Lactate Order REFLEX LACTIC ORDERD
== END 2025-05-07 14:11 | disposition home or self-care (01) ==
PROVIDERS: Emergency Provider Family Medicine; PCP Nurse Practitioner Family
DX: F19.10 Other psychoactive substance abuse, uncomplicated (principal); F31.9 Bipolar disorder, unspecified; Z87.891 Personal history of nicotine dependence
CPT/HCPCS: 36415; 71045; 80053; 80074; 81001; 83605; 83690; 83735; 85025; 87040; 87806; 93005; 96361; 96374; 99285; J2405; J7030

== ENCOUNTER 2025-05-23 10:24 | Inpatient (IN) | payer MEDICAID, SELFPAY ==
--- OUTSIDE RECORDS SUMMARY | 2024-02-01 06:20 | XMS_ITS ---
Author Organization [facility] Address [address] [place] [address] [place] [address] Care Team Providers Care Turn Operator Name Role Phone Eric Dominguez Primary Care Provider Brian Villalba [phone] REASON FOR VISIT establish care-needs to see medicaid also Social History Sex Assigned At : Social History Observation Description Sex Assigned At Male Encounters Encounter Location Date Provider Diagnosis 18th [facility] [address] [place] [address] 02/01/2024 Brian Villalba Plan Of Treatment No Information Progress Notes * Curt ALVARADOonDOB: 0 (24 yo M)Acc No.[id number]:02/01/2024 Progress Notes Patient: Micah Valdez Provider: NATHANIEL Novoa :2000 A ge:23 Y S ex:Male Date:02/01/2024 Address:[address], [facility] Pcp:Eric Dominguez Subjective: * Chief Complaints: * E stablish care-needs to see medicaid also * Electronic signature of NATHANIEL Kiran on 05/24/2025 at 07:41 AM CDT Sign off status: Pending * Provider: NATHANIEL Novoa Date: 0 02/01/2024 Generated for Printi ng/Faxing/eTransmitting on: 0 05/24/2025 07:41 AM CDT
--- OUTSIDE RECORDS SUMMARY | 2024-02-21 03:00 | XMS_ITS ---
Author Organization [facility] Address [address] [place] [address] Care Team Providers Care Business Intelligence Analyst Name Role Phone AlbertoEric Primary Care Provider REASON FOR VISIT establish care-needs to see medicaid also Social History Sex Assigned At : Social History Observation Description Sex Assigned At Male Encounters Encounter Location Date Provider Diagnosis 18 [facility] [address] [place] [address] 02/21/2024 Eric Dominguez Plan Of Treatment No Information Progress Notes * Curt ALVARADOonDOB: 0 (24 yo M)Acc No.[id number]:02/21/2024 Progress Notes Patient: Micah Valdez Provider: Nat Dominguez MD :2000 A ge:23 Y S ex:Male Date:02/21/2024 [facility] [facility] * Electronic signature of Salvatore Dominguez MD on 05/24/2025 at 07:41 AM CDT Sign off status: Pending * Provider: Nat Dominguez MD Date: 0 02/21/2024 Generated for Printi ng/Faaveryg/eTransmitting on: 0 05/24/2025 07:41 AM CDT
[2025-05-23 10:29] VITALS: BP 130/79; PULSE 90; RESP 20; TEMP 36.8; O2SAT 96
--- NOTE | 2025-05-23 10:33 | ECG_ITS ---
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
[2025-05-23 10:41] VITALS: O2SAT 98
[2025-05-23 10:48] LABS: Basophils % 0.6 %; Eosinophils # 0.1 10^3/uL (0.0-0.8); Eosinophils % 0.9 %; Hematocrit 44.4 % (37-53); Lymphocytes # 1.9 10^3/uL (0.8-4.8); Lymphocytes % 27.5 %; Mean Corpuscular HGB Conc 33.6 g/dL (30-55); Mean Corpuscular Hemoglobin 29.2 pg (27-33); Mean Corpuscular Volume 86.9 fl (82-101); Mean Platelet Volume 9.8 fL (7.4-10.4); Monocytes # 0.3 10^3/uL (0.2-0.9); Neutrophils # 4.43 10^3/uL (1.8-7.7); Neutrophils % 65.6 %; Nucleated Red Blood Cells % 0 %; Platelet Count 321 10^3/cmm (157-399); Red Blood Count 5.11 10^6/uL (3.85-5.65); Red Cell Distribution Width 13.8 % (12.1-15.1); White Blood Count 6.76 10^3/uL (3.29-11.43)
[2025-05-23 10:48] LABS: Bilirubin Urine Negative (Negative); Blood Urine Negative (Negative); Glucose Urine UA Negative (Normal); Ketones Urine Negative (Negative); Leukocyte Esterase Urine Negative (Negative); Nitrate Urine Negative (Negative); Protein Urine Negative (Negative); Specific Gravity, Urine 1.009 (1.005-1.030); Urine Appearance Clear (CLEAR); Urine Color Yellow (Yellow)
[2025-05-23 10:54] LABS: Add Urine Microscopic? YES; Bacteria Urine None Seen /hpf; Hyaline Casts Urine 0-4 /lpf; RBC Urine 0-2 /hpf (0-2); Squamous Epithelial Cell Urine 0-5 /hpf (0-5); WBC Urine 0-5 /hpf (0-5)
[2025-05-23 10:55] LABS: Amphetamines Screen Urine Negative (Negative); Barbiturates Screen Urine Negative (Negative); Benzodiazepines Screen Urine Negative (Negative); Cocaine Screen Urine Negative (Negative); Opiate Screen Urine Negative (Negative); PCP Screen Urine Negative (Negative); THC Screen Urine Positive (Negative)
--- NOTE | 2025-05-23 10:59 | PC.PHAR ---
Spoke with Turning Kiester [phone] has a couple new orders and dosage incresase on Atomoxetine 40mg to 60mg and Buspirone 7.5mg to 10mg. Added wellbutrin xl 150mg daily and Trazodone 50mg at hs. Med list sent with EMS but it did not stay here with the pt.
[2025-05-23 11:17] LABS: Alanine Aminotransferase 41 U/L (0-41); Albumin Level 4.6 g/dL (3.5-5.2); Alcohol Level 124 mg/dL (0-10); Alkaline Phosphatase 93 U/L (40-130); Anion Gap 16.8 (5-19); Aspartate Amino Transferase 23 U/L (0-40); Blood Urea Nitrogen 10 mg/dL (6-20); Calcium 9.2 mg/dL (8.5-10.5); Carbon Dioxide 26 mmol/L (22-29); Chloride 106 mmol/L (98-107); Globulin 2.4 g/dL (1.3-4.6); Glomerular Filtration Rate 91.8 mL/min (90-130); Glucose 89 mg/dL (65-115); Osmolality Calculated 299 mOsm/kg (285-295); Potassium 3.8 mmol/L (3.5-5.1); Sodium 145 mmol/L (136-145); Thyroid Stimulating Hormone 1.69 uIU/mL (0.27-4.20); Total Bilirubin 0.4 mg/dL (0.15-1.2)
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
[2025-05-23 11:19] LABS: Acetaminophen < 5.0 ug/mL (10-30); Salicylate < 0.3 mg/dL (3-10)
--- NOTE | 2025-05-23 13:50 | PC.NURSE ---
Involuntary 96 hour hold rights read and reviewed with patient. Nithin from security present during reading of rights. Patient verbalized understandings and copy of rights given to patient.
[2025-05-23 18:03] VITALS: BP 130/87; PULSE 87; RESP 18; TEMP 36.8; O2SAT 98
[2025-05-23 21:10] VITALS: BP 131/91; PULSE 88; RESP 20; TEMP 37.1; O2SAT 98
[2025-05-23] MEDS: hyDROXYzine 25 mg Capsule 50 MG PO (21:47)
[2025-05-23] MEDS: trazodone 50 mg Tablet PO (21:47)
[2025-05-23] MEDS: BuSPIRONE 10 mg Tablet PO (21:47)
[2025-05-23] MEDS: nicotine 2 mg Gum BUCCAL (21:48)
[2025-05-23 21:59] VITALS: BP 131/91; PULSE 88; RESP 20; TEMP 37.1; O2SAT 98
[2025-05-24 06:00] VITALS: BP 137/89; PULSE 78; RESP 17; TEMP 36.8; O2SAT 97
[2025-05-24 07:28] LABS: Glucose Point of Care 106 mg/dL (70-110)
[2025-05-24] MEDS: paliperidone ER 3 mg Tablet PO (07:41)
[2025-05-24] MEDS: buPROPion XL (24 HR) 150 mg Tablet PO (07:41)
[2025-05-24] MEDS: hyDROXYzine 25 mg Capsule 50 MG PO ×3 (07:41→20:24)
[2025-05-24] MEDS: BuSPIRONE 10 mg Tablet PO ×3 (07:42→20:24)
[2025-05-24] MEDS: multivitamin therapeutic Tablet 1 TAB PO (07:42)
[2025-05-24] MEDS: thiamine 100 mg Tablet PO (07:42)
[2025-05-24] MEDS: folic acid 1 mg Tablet PO (07:42)
[2025-05-24] MEDS: escitalopram 10 mg Tablet PO (07:42)
--- OUTSIDE RECORDS SUMMARY | 2025-05-24 07:42 | XMS_ITS | Patient Health Record ---
Author Organization [facility] Address [address] [place] [address] Care Team Providers Care Information Services Consultant Name Role Phone Eric Dominguez Primary Care Provider Allergies No Known Allergies Reason For Referral No Information Medications Medication SIG (Take, Route, Frequency, Duration) Notes Start Date End Date Status cloNIDine HCl 0.1 MG Tablet 1 tablet Orally Once a day; Duration: 30 days please deliver to [place] [facility] Abilify 5 MG Tablet 1 tablet Orally Once a day; Duration: 30 days please deliver to [place] [facility] hydrOXYzine HCl 25 MG Tablet 1 or 2 tablets Orally every 8 hrs; Duration: 30 days as need for anxiety please deliver to [facility] Active traZODone HCl 50 MG Tablet 1 or 2 tablet at bedtime as needed Orally Once a day; Duration: 30 days please deliver to [place] [facility] Vyvanse 40 MG Capsule 1 capsule in the morning Orally Once a day Active Social History Tobacco Use: Social History Observation Description Date Details (start date - stop date) Current Smoker NA - NA Sex Assigned At : Social History Observation Description Sex Assigned At Male Social History Drugs/Alcohol: Social Info Question Answer Notes Drugs Have you used drugs other than those for medical reasons in the past 12 months? Yes Heroin? Yes DO NOT USE SBIRT 2014 Patient refused/declined SBIRT s creening at this time? No In the past 3 months, how often do you have a drink containing alcohol? Monthly or less In the past 3 months, how often do you have 4 or more drinks on one occasion? Females (and Males 65 and older). In the past 3 months, how often do you have 5 or more drinks on one occasion? Males (younger than 65) Monthly or less In the past 12 months, did you smoke pot, use another street drug, or use a prescription painkiller, stimulant, or sedative for a non-medical reason? Yes The cumulative score is 2 A referral is needed Tobacco Use: Social Info Question Answer Notes Tobacco Control (Standard) Tobacco use: Current smoker How often do you smoke cigarettes? Every day How many cigarettes a day do you smoke? 11-20 Problems Problem Type SNOMED Code ICD Code Onset Dates Problem Status W/U Status Risk Notes Problem Smoking (84270873) Smoking (F17.200) Active confirmed Problem Substance abuse (3612587811) Substance abuse (F19.10) Active confirmed Problem Generalized anxiety disorder (52344204) Anxiety, generalized (F41.1) Active confirmed Problem Attention deficit hyperactivity disorder (051877154) ADHD (F90.9) Active confirmed Plan Of Treatment No Information Insurance Providers Payer Name Payer Address Payer Phone Subscriber Number Group Number Insured Name Patient Relationship to Insured Coverage Start Date Coverage End Date PE for Adults [id number] 20 18-02-31 Micah Aguilar Self - patient is the insured Medical (General) History Medical History History ICD Code Substance abuse F19.10 ADHD F90.9
[2025-05-24 14:00] VITALS: BP 129/93; PULSE 76; RESP 17; TEMP 36.6; O2SAT 99
[2025-05-24] MEDS: nicotine 2 mg Gum BUCCAL (15:19)
--- NOTE | 2025-05-24 15:36 | W.PM.NPUH&PS ---
Providers/Chief Complaint Admitting Physician: Davin Rousseau MD Primary Care Provider: Des Flores Chief Complaint: ETOH - SI HPI NPU History of Present Illness Micah Aguilar is a 24 year old male who presented to the emergency department with the following report: Chief Complaint: Psychiatric Symptoms Stated Complaint: ETOH - SI Time Seen by Provider: 05/23/25 10:34 History of Present Illness: 24 male presenting to the ED requesting medication management after relapse on methamphetamine and alcohol. Patient reports he was previously seen in this ED and was prescribed psychiatric medications that were helpful, but states he ran out approximately one month ago when no one facilitated his follow-up appointment with psychiatry. After discontinuing medications, patient reports he went crazy a little bit and relapsed on methamphetamine and alcohol. Patient reports his blood alcohol content was 1.2 this morning per an outside facility ( [facility] ). He reports drinking a lot last night and a pint this morning. Patient discloses passive suicidal ideation with statements like I don't give a fuck if I and if I , cool, that saves me a lot of trouble. He denies active suicidal intent but mentions past fentanyl use was motivated by wanting to . Patient also expresses homicidal ideation toward someone who owes him money, stating he was tempted to stop by his house and beat the shit out of him. Patient reports he has arrangements to enter rehab on Tuesday. He was admitted to the neuropsychiatric unit for definitive treatment of those issues. He is known to [facility] psychiatry primarily through inpatient services this being the third hospitalization since the end of January. An excerpt of his last discharge summary is included below for context and the fact that there have been no substantive changes. He presents today having presented to the emergency department with with a UDS positive for cannabis and a BAL of 124. He presents reporting he is doing fine but had had a relapse. He reports that he ran into some people in the park when he had left his sober living facility and that started a courtney that was related to methamphetamine. He reports he got really psychotic and kind of lost time. He clearly had lost time as he is under the impression that he was last here 6 to 10 months ago and that he had put together 6 months of sobriety when in fact he was here a little over 2 months ago which was preceded by a hospitalization before that by about a week. Making this his third hospitalization in a few months. He reports that he is open to continuing his medication and we discussed the risk benefits and alternatives of increasing his Invega and he understood and agreed to proceed as is documented in this note. We discussed the importance of him avoiding substances like cannabis, like methamphetamine that are contributing to psychosis. He reports that he has a bed available to return to at [facility]. This appears to have been confirmed and we just discussed that we would need to make sure that he is in the right state of mind to return at discharge. Per his 03/06/2025 [facility] inpatient psychiatric discharge summary: Discharge Diagnosis (1) Impulse control disorder, unspecified: Status: Acute (2) ADD (attention deficit disorder): Status: Acute (3) Explosive personality disorder: Status: Acute (4) Bipolar 1 disorder: Status: Acute (5) History of drug abuse: Status: Acute (6) Cannabis use disorder, severe, dependence: Status: Acute Reason for Visit Reason for Visit: MHE Brief History: History of Present Illness Micah Aguilar is a 24 year old male who presented to the emergency department with complaints of having suicidal ideation. The patient had reported to the emergency room staff that he was having thoughts that he may harm himself and reported that he had consumed alcohol the night before. The patient had no blood alcohol level. He had reported that he had been using marijuana as well. The patient stated that he had been [facility] a potential placement for him to have longterm after he had been homeless for an unspecified amount of time. He had just been discharged less than a week ago from the neuropsychiatric unit. The patient reports that he is currently not suicidal. He had stated that he would like to eventually return to work but stated that he had a friend who was staying at another [facility]term and he would like to consider this as an option for him. He had reported no substantiative changes since his last hospitalization 1 week ago. Patient was an unreliable historian. Current medictions: Strattera 40mg at night, lexapro 10mg daily, paliperidone 3mg daily, hydroxyzine 50mg bid, trazodone 50mg at night Urine drug screen was positive for THC. Excerpt from NPU Discharge Summary from 02/27/25 Discharge Diagnosis (1) ADD (attention deficit disorder): Status: Acute (2) Explosive personality disorder: Status: Acute (3) Bipolar 1 disorder: Status: Acute (4) History of drug abuse: Status: Acute (5) Cannabis use disorder, severe, dependence: Status: Acute Reason for Visit Brief History: History of Present Illness Micah Aguilar is a 24 year old male who presented to the emergency department with the following report: Chief Complaint: Altered Mental Status Stated Complaint: ams Time Seen by Provider: 02/22/25 09:05 Source: patient Mode of arrival: wheelchair Limitations: altered mental status History of Present Illness: Patient is a 24-year-old male presents to ED today from [facility]. He apparently showed up there this morning and had mildly slurred speech which continued to worsen thus prompting them to send him to the emergency department for evaluation. Patient tells me he took 800 mg of THC gummies this morning and drank some alcohol. Patient does not give me an intent when I ask. He can answer a few questions upon arrival but is significantly altered. Vitals are stable upon arrival. MD complaint: altered mental status Onset (ago): hour(s) Timing confirmed by: caregiver Severity: severe Consistency of symptoms: Getting Worse Context: alcohol abuse and drug abuse Associated symptoms: Reports no associated symptoms. He was admitted to the ICU for definitive treatment of those issues. A request was made after he was medically cleared for him to be transferred to the neuropsychiatric unit secondary to him being on a 96-hour hold. He was transferred to the neuropsychiatric unit and presents today reporting that he has been in a sober living facility [facility]. He had gotten in there because he went to the crisis stabilization center and identified to them that he was having some difficulties with addiction and that he wanted and needed a place to go. They assisted [facility] in finding [facility] and has been in there for couple months he reports he denies any lethality but reports that last night or the night before when he came to the hospital that he had gotten high intake and a significant amount of Gummies to get high and that he did not think he would get that discombobulated so he returned to [facility] and they have a role that she can be high on the campus so they brought him here to the hospital. He had significant issues with altered mental status which led to him being taken to the ICU for further evaluation. He was eventually medically cleared and transferred to the unit yesterday. He reports that they also felt he needed to get back on his medication which he has been off for couple months but reports it was just that he has been so busy with work and everything. We reviewed his behavioral assessment and he identified this to be an accurate representation of what is going on currently. He was very focused on wanting to be discharged sooner rather than later. He denied any problems at this time and says that he would just like to make sure he is at work 02/25/2025. We discussed the risks, benefits and alternatives of restarting his medications and he understood and agreed to proceed as is documented in this note. Per his 01/14/2025 [facility] [place]: Admission Information Reason for Admission: Seeking assistance with obtaining a referral to substance use recovery facility. Chief Complaint: I am concerned about relapsing on alcohol/drugs . Current Presentation: Client appears well groomed & appropriately dressed for the weather. posture is rigid with client making appropriate levels of eye contact. Client was generally cooperative, appearing motivated to rejoin a [facility] recovery facility. Client's mood is anxious, with client frequently pacing the room and appearing fidgety throughout encounter. Speech is appropriate. Thought process is linear. Average insight/judgement. Client demonstrates awareness of potential triggers leading to relapse, although he appears motivation to restart on the path to sobriety, appearing in the planning stage of change. History Past Diagnosis and Psychiatric History: Self-reports Bipolar I Disorder. History Detail: Client endorses a history of substance use beginning at a very young age. Client reports multiple forms of substance use including fentanyl, methamphetamine, and other substances. He reports this led to poor behaviors and choices, noting it contributed to the decline in familial relationships and potential legal troubles. Client referenced stealing from his grandma, although he notes his grandmother has since forgiven him. Current Social/Environmental Situation Current Living Environment/Relationships: Currently unhoused. Client reports being admitted to [facility], a [place] based recovery facility until yesterday. Client states he had been caught with a bottle of alcohol which led to his subsequent removal from the program. While client does have familial support in the form of his Aunt, he is unable to reside with her due to strenuous relations with his Uncle. Client is currently unhoused and fears relapse of drugs if he is unable to be readmitted into another reover center. Do you have any relationships that are supportive of your recovery? (e.g., family, friends): Yes (Grandma, Aunt) What is your current living situation? (e.g., homeless, living with family): Yes (Currently unhoused, was engaged in services at [facility].) Do you currently live where others drink alcohol and/or use: No Are you currently involved in relationships or situations that pose a threat to your safety?: No Are you currently involved in relationships or situations that could negatively affect your recovery?: No Have you ever had hobbies? How do you spend free time? (e.g., interests; activities; recreation)?: Yes (Videogames, building PCs) Employment/Support Status Education Completed: Some college, was attending [employer]. Training or technical education completed:: Desires to go to school for coding Do you have a profession, trade, or skill?: No Do you have a valid street flusher driver?s license?: No (No, stolen) Do you have an automobile available for use?: No How long was your longest full-time job?: Tho at [employer] 2 years Usual (or last) occupation? (specify): Last job was [employer] in [place]. Does someone contribute to your support in any way? Is patient receiving any regular support (i.e., gee, food, housing) from family/friend? Include spouse?s contribution; exclude support by an institution: Yes (Aunt) Usual employment pattern, past 3 years? Employment/Support Comments: Client would like to address substance use concerns first. How much money did you receive from the following sources in the past 30 days? Use Patient Rating Scale Use Interviewer Severity Rating Employment/Support Comments: Client does seek employment, noting it helps him stay focused and maintain sobriety. Client identifities a contributing facotr towards his relapse included being told he would be unable to work until he had been at the [facility] for another year. Substance Use History Are you currently experiencing withdrawal symptoms such as tremors, excessive sweating, rapid heart rate, blackouts, anxiety, vomiting. etc.?: No Do you get physically ill when you stop using alcohol/or drugs?: Yes (Slept for a week straight, depressive systems, ) Do you have a history of serious withdrawal, seizures, or life-threatening symptoms during withdrawal?: Yes Do you find yourself using more alcohol and/or other drugs than you intend to?: Yes (Relapsed on alcohol due to environmental stressors/familial stressors.) Alcohol or Other Drug Used past 6 months Prior use? (life time) Route of Use Frequency(past 6 months) Duration (of use) Date of last use Alcohol yes yes drink 1/5 per day 01/13/25 Amphetamines (meth , ice, crank) yes started at age 13 th intraveneous eightball a day 07/29/24 Cocaine Heroin Opioid /Opiates (m isuse or w/out pre scription) no last year smoking frequent 12/29/22 Marijuana (cbd, da bs) yes yes daily 07/29/24 Sedatives (Benzo, sleep meds) (misus e or w/out prescri ption) Hallucinogens Inhalants Over the Counter ( Cough syrup, Diet) Nicotine (cigarett es, chew, vape) yes started at 18 pack a day today Other Relapse, Cont. Use Are you aware of your triggers to use alcohol and/or drugs: Yes (Anxiety, familial/social stressors, depression. Has desire to feel good.) Please check of any of the following which you know are triggers for you:: Strong Cravings, Difficulty with feelings, Relationship problems and Environment Please Describe: Gets social anxiety and leans on alcohol as a coping mechanisms. What do you typically do if you are triggered: I start to feel corned and have to urge to run away. Have you ever tried to control your use, stop or cut down : Yes What does that look like: Was engaged in in-patient recovery services, was discharged from [facility] for breaking policy due to relapse on alcohol. 7.What is the longest period of time that you have gone without using alcohol and/or other drugs: Explain: 5 months.What helps you to not use drugs/alcohol, what doesn't help Explain: What Helps: Working, staying busy, not having to opportunity to use, keeping accountability. What doesnt help: being around it, difficulty with feelings, access to substances Readiness to Change Is your alcohol and/or other drug use affecting any of the following?: Work, Relationships, Mental Health and Physical Health Do you continue to use alcohol and/or other drugs despite having it affect you?: Yes How important is it for you to receive treatment for:: Alcohol: Extremely and Drugs: Extremely Is anyone making you seek treatment or asking you to be in recovery?: No Assessment Summary Strengths, Current Resources, Barriers to Treatment: Strengths: Love/motivation stemming from family support, Feels obligated to family, little sister, and his aunt. Current Resources: Aunt, little sister. Barriers to Treatment: Unhoused, financial instability, lack of community resources, lack of transportation. Assessment Summary Dialogue: Micah is a 24 year old male whom presents to the Crisis Center requesting assistance locating a [place] recovery facility. Client endorses a history of substance use, noting he had maintained sobriety for approximately 5 months. Micah notes having been a resident of [facility] recovery facility, which he identifies as being the primary motivating factor of his stint of sobriety. Client notes he had initially utilized the recovery facility after being hospitalized as a result of his past substance use. Client endorses severe symptoms of withdrawal during his hospitalization stay. Client does report being diagnosed as Bipolar one upon discharge from his hospitalization. While client was discahrge from the recovery fcility due to relapse on alcohol, client expresses a desire to reachieve sobriety by being readmitted into a [facility] facility. Identified Treatment Goals Identified Treatment Goal(s): Substance use services Hospital Course Hospital Course He slowly acclimated to the individual, group and milieu therapies. He presented after an overdose that he reported was just trying to get high after he was in a less altered mental status. He had a history of mental health treatment and have been off of his medications. Strattera 40 mg p.o. daily, Lexapro 10 mg p.o. every morning and Invega which were all past medications were restarted prior to discharge. He had been on the long-acting Abilify preparation. But we started back with the oral. He also got Vistaril for anxiety. He had no difficulty with the medications. That, abstinence from substances as well as the treatment milieu had a positive response. He worked with the social work team to establish appropriate follow-up services and was connected to appropriate community resources. He returned to the program [facility] that he had been staying at prior to admission. He was able to contract for safety outside of the hospital prior to discharge. During the hospitalization, patient had routine laboratory studies which were within normal limits except for few outliers. Additionally there was a general medical evaluation which was also within normal limits and revealed no new acute processes. At the time of discharge, he denied psychosis or lethality. Mood and anxiety were well managed. Patient endorsed a plan to avoid all drugs of abuse, and agreed to follow-up with the aftercare recommendations of the treatment team. Patient was evaluated and deemed to be absent credible lethality, and achieved maximum benefit from inpatient hospitalization, so he was discharged. Hospital Course During the hospitalization, the patient had routine laboratory studies which were within normal limits except for a few outliers. Additionally, there was a general medical evaluation which was also within normal limits and revealed no new acute processes. At the time of discharge, lethality was denied and patient continued to report chronic problems with attention and concentration. Strattera was increased to 40mg twice a day prior to discharge. He had accepted desire to go to [facility] for further extended stay to maintain sobriety and avoid homelessness. Mood and anxiety were well managed. The patient endorsed a plan to avoid all drugs of abuse and follow up with the aftercare recommendations of the treatment team. The patient was evaluated and deemed to be absent credible lethality and had achieved the maximum benefit from an inpatient hospitalization, and so was discharged. Meds NPU Home Medications ?Medication ?Instructions ?Recorded ?Confirmed ?Last Taken ?Type escitalopram oxalate 10 mg tablet 10 mg PO DAILY 30 days #30 tabs 02/27/25 05/23/25 05/22/25 Rx paliperidone 3 mg tablet,extended 3 mg PO DAILY 30 days #30 tabs 02/27/25 05/23/25 05/22/25 Rx release 24 hr atomoxetine 60 mg capsule 60 mg PO DAILY 05/23/25 05/23/25 05/22/25 History bupropion HCl 150 mg 24 hr tablet, 150 mg PO QAM 05/23/25 05/23/25 05/22/25 History extended release (Wellbutrin XL) buspirone 10 mg tablet 10 mg PO TID 05/23/25 05/23/25 05/22/25 History trazodone 50 mg tablet 50 mg PO BEDTIME 05/23/25 05/23/25 05/22/25 History Allergies Allergy/AdvReac Type Severity Reaction Status Date / Time No Known Allergies Allergy Verified 03/21/25 13:45 PFSH NPU PFSH: Medical History Panic attacks Anxiety and depression Surgical History History of surgery on arm left Social History Smoking and tobacco/nicotine status: current every day tobacco/nicotine user Alcohol intake: former Substance/Drug Use: former Mental Status Exam MSE Comments: This is an overweight versus obese white male in hospital scrubs with adequate grooming and eye contact. No abnormal movements except for psychomotor retardation. Cooperative with exam and mild to moderate distress. Speech was decreased rate and volume. Mood described as better, affect congruent. Thought process organized. Thought content: Patient endorsed some suicidal ideation but denied homicidal ideation, there were no delusions reported or noted, he denied current auditory or visual hallucinations. Attention and concentration were intact And memory was mostly reliable but no more formally tested. He is alert and oriented times person and place. Insight, judgment and impulse control were limited versus impaired. Vitals/I&O/Wt Last Vital Signs Temp 98.3 F 05/24/25 06:00 Pulse 78 05/24/25 06:00 Resp 17 05/24/25 06:00 BP 137/89 05/24/25 06:00 Pulse Ox 97 05/24/25 06:00 O2 Del Method Room Air 05/24/25 06:00 Weight last 48 hrs Weight 99.79 kg Data NPU 05/23/25 10:41 05/23/25 10:41 A&P Assessment and plan (1) ADD (attention deficit disorder): (2) Explosive personality disorder: (3) Bipolar 1 disorder: (4) History of drug abuse: (5) Cannabis use disorder, severe, dependence: Plan This is a 24-year-old white male with a significant history of mental health and addiction issues with reports of being in a sober living facility but off of his medication for the past 2 months. He reports that he wants to restart his medication and discharge as soon as possible to be able to get back to work. 1. Restart his medications. But increase Invega to 6 mg p.o. daily. 2. Continue every 15 minute checks for safety. 3. Encourage individual, group and milieu therapies. 4. Encourage sober living treatment after discharge at the highest level of care to which he is willing to commit. 5. Get collateral information especially finding out where he has his outpatient services. 6. Evaluate against the backdrop of the 96-hour hold. PDMP PDMP Reviewed: Not Reviewed Involuntary Hold Information Hold Status: Legal Status: 96 Hour Hold Date/Time Hold Expires: 05/29/2025 @ 1315 Attestations NPU Medical Necessity Statement*: Inpatient hospitalization is medically necessary and the clinically appropriate intervention at this time. We will monitor/initiate medications and make changes as indicated. He will be in the hospital for over 2 midnights. Likely length of stay 3-5 days. Coding Level of Care Code Acute Code for g Fwd Diagnoses ADD (attention deficit disorder) F98.8 Explosive personality disorder F60.3 Bipolar 1 disorder F31.9 History of drug abuse F19.11 Cannabis use disorder, severe, dependence F12.20
--- NOTE | 2025-05-24 16:18 | PC.NURSE ---
Dr. Rousseau gave a verbal order to increase Strattera to 80mg PO QD.
[2025-05-24] MEDS: trazodone 50 mg Tablet PO (20:24)
[2025-05-24 20:35] VITALS: BP 133/88; PULSE 77; RESP 18; TEMP 36.6; O2SAT 99
[2025-05-25 06:00] VITALS: BP 136/88; PULSE 73; RESP 18; TEMP 37; O2SAT 98
--- NOTE | 2025-05-25 07:49 | P.NPUPN_ITS ---
Subjective NPU 2 Subjective: Patient presented today reporting that life is pretty good as far as he is concerned. He reports that he is doing fine on the medication but still having symptoms. We discussed the risks, benefits and alternatives of increasing his Invega and he understood and agreed to proceed as is documented in his note. Staff reports of him being impulsive and a bit hyper energetic and he agrees with this assessment. He does acknowledge relapse with methamphetamine which seems legitimate based on his current demeanor. He denied any side effects of the medication. Mental Status Exam 2 MSE Comments: This is an overweight versus obese white male in hospital scrubs with adequate grooming and eye contact. No abnormal movements except for psychomotor retardation. Cooperative with exam and mild to moderate distress. Speech was decreased rate and volume. Mood described as better, affect congruent. Thought process organized. Thought content: Patient endorsed some suicidal ideation but denied homicidal ideation, there were no delusions reported or noted, he denied current auditory or visual hallucinations. Attention and concentration were intact And memory was mostly reliable but no more formally tested. He is alert and oriented times person and place. Insight, judgment and impulse control were limited versus impaired. Vitals/I&O/Wt Last Vital Signs Temp 98.6 F 05/25/25 06:00 Pulse 73 05/25/25 06:00 Resp 18 05/25/25 06:00 BP 136/88 05/25/25 06:00 Pulse Ox 98 05/25/25 06:00 O2 Del Method Room Air 05/25/25 06:00 Weight last 48 hrs Weight 99.79 kg Data NPU 05/23/25 10:41 05/23/25 10:41 A&P Assessment and plan (1) ADD (attention deficit disorder): (2) Explosive personality disorder: (3) Bipolar 1 disorder: (4) History of drug abuse: (5) Cannabis use disorder, severe, dependence: Plan This is a 24-year-old white male with a significant history of mental health and addiction issues with reports of being in a sober living facility but off of his medication for the past 2 months. He reports that he wants to restart his medication and discharge as soon as possible to be able to get back to work. 1. Restart his medications. But increase Invega to 6 mg p.o. daily. 2. Continue every 15 minute checks for safety. 3. Encourage individual, group and milieu therapies. 4. Encourage sober living treatment after discharge at the highest level of care to which he is willing to commit. 5. Get collateral information especially finding out where he has his outpatient services. 6. Evaluate against the backdrop of the 96-hour hold. PDMP PDMP Reviewed: Not Reviewed Involuntary Hold Information 2 Hold Status: Legal Status: 96 Hour Hold Date/Time Hold Expires: 05/29/2025 @ 1315 Attestations NPU 2 Medical Necessity Statement*: Inpatient hospitalization is medically necessary and the clinically appropriate intervention at this time. We will monitor/initiate medications and make changes as indicated. Likely length of stay 2-4 days. Coding Level of Care Code Acute Code for g Fwd Diagnoses ADD (attention deficit disorder) F98.8 Explosive personality disorder F60.3 Bipolar 1 disorder F31.9 History of drug abuse F19.11 Cannabis use disorder, severe, dependence F12.20
[2025-05-25] MEDS: multivitamin therapeutic Tablet 1 TAB PO (10:09)
[2025-05-25] MEDS: thiamine 100 mg Tablet PO (10:09)
[2025-05-25] MEDS: paliperidone ER 3 mg Tablet PO (10:09)
[2025-05-25] MEDS: folic acid 1 mg Tablet PO (10:09)
[2025-05-25] MEDS: buPROPion XL (24 HR) 150 mg Tablet PO (10:09)
[2025-05-25] MEDS: escitalopram 10 mg Tablet PO (10:09)
[2025-05-25] MEDS: BuSPIRONE 10 mg Tablet PO ×3 (10:09→19:44)
[2025-05-25] MEDS: atomoxetine 40 mg Capsule 80 MG PO (10:10)
[2025-05-25] MEDS: nicotine 4 mg lozenge MUCOUS MEM (11:16)
[2025-05-25 14:00] VITALS: BP 126/83; PULSE 66; RESP 18; TEMP 36.6; O2SAT 97
--- NOTE | 2025-05-25 15:06 | PC.NURSE ---
Pt. stated it was him who pulled the fire alarm because he wanted the doors to open so he could leave.
[2025-05-25] MEDS: hyDROXYzine 25 mg Capsule 50 MG PO (19:43)
[2025-05-25] MEDS: trazodone 50 mg Tablet PO (19:44)
[2025-05-25 20:47] VITALS: BP 119/82; PULSE 83; RESP 18; TEMP 36.5; O2SAT 98
[2025-05-26 06:00] VITALS: BP 109/58; PULSE 61; RESP 18; TEMP 36.6; O2SAT 98; BMI 30.4
[2025-05-26] MEDS: nicotine 4 mg lozenge MUCOUS MEM ×3 (07:46→17:18)
[2025-05-26] MEDS: OLANZapine 5 mg ODT PO ×2 (08:16→16:44)
[2025-05-26] MEDS: thiamine 100 mg Tablet PO (08:38)
[2025-05-26] MEDS: atomoxetine 40 mg Capsule 80 MG PO (08:38)
[2025-05-26] MEDS: BuSPIRONE 10 mg Tablet PO ×2 (08:39→15:09)
[2025-05-26] MEDS: buPROPion XL (24 HR) 150 mg Tablet PO (08:39)
[2025-05-26] MEDS: escitalopram 10 mg Tablet PO (08:39)
[2025-05-26] MEDS: multivitamin therapeutic Tablet 1 TAB PO (08:39)
[2025-05-26] MEDS: folic acid 1 mg Tablet PO (08:39)
[2025-05-26] MEDS: paliperidone ER 3 mg Tablet PO (09:18)
[2025-05-26 14:00] VITALS: BP 124/71; PULSE 122; RESP 18; TEMP 36.6; O2SAT 97
--- NOTE | 2025-05-26 17:49 | W.PM.NPUPNS ---
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 Patient had stated that he waiting for him at [facility] had a place for substance abuse counseling on an inpatient basis. He had stated that [facility] had informed him to get detoxed before going in to the facility. He had denied hearing any voices at this time.the patient remains somewhat intrusive on the unit. He had reported that he was annoyed and had been more aggravated recently. He stated that he needed help for his depression and reported that he had stopped all of his medications over the last month and this was why he was in a bad place. He states that he wishes to go back to the sober living is soon as possible. Mental Status Exam MSE Comments: This is an overweight versus obese white male in hospital scrubs with adequate grooming and eye contact. No abnormal movements except for psychomotor retardation. Cooperative with exam and mild to moderate distress. Speech was decreased rate and volume. Mood described as depressed. Affect appeared mood incongruent and somewhat euthymic. Thought process was linear and organized. Thought content: Patient endorsed some suicidal ideation but denied homicidal ideation, there were no delusions reported or noted. He denied current auditory or visual hallucinations. Attention and concentration were intact. His recent and remot memory was mostly reliable but no more formally tested. He is alert and oriented times person and place and time. Insight, judgment and impulse control were limited versus impaired. Vitals/I&O/Wt Last Vital Signs Temp 98 F 05/26/25 14:00 Pulse 122 H 05/26/25 14:00 Resp 18 05/26/25 14:00 BP 124/71 05/26/25 14:00 Pulse Ox 97 05/26/25 14:00 O2 Del Method Room Air 05/26/25 06:00 Weight last 48 hrs Weight 98.883 kg Data NPU 05/23/25 10:41 05/23/25 10:41 A&P Assessment and plan (1) Depression: (2) ADD (attention deficit disorder): (3) Explosive personality disorder: (4) Bipolar 1 disorder: (5) History of drug abuse: (6) Cannabis use disorder, severe, dependence: Plan This is a 24-year-old white male with a significant history of mental health and addiction issues with reports of being in a sober living facility but off of his medication for the past 2 months. He reports that he wants to restart his medication and discharge as soon as possible to be able to get back to work. 1. Continue Invega to 6 mg p.o. daily, Wellbutrin xl 150mg in am, Lexapro 10mg daily, and Strattera 80mg daily. D/C buspar. 2. Continue every 15 minute checks for safety. 3. Encourage individual, group and milieu therapies. 4. Encourage sober living treatment after discharge at the highest level of care to which he is willing to commit. 5. Get collateral information especially finding out where he has his outpatient services. 6. Evaluate against the backdrop of the 96-hour hold. PDMP PDMP Reviewed: Not Reviewed Involuntary Hold Information Hold Status: Legal Status: 96 Hour Hold Date/Time Hold Expires: 05/29/2025 @ 1315 Attestations NPU Medical Necessity Statement*: Inpatient hospitalization is medically necessary and the clinically appropriate intervention at this time. We will monitor/initiate medications and make changes as indicated. Likely length of stay 2-4 days. Coding Level of Care Code Acute Code for [facility] Fwd Diagnoses Depression F32.A ADD (attention deficit disorder) F98.8 Explosive personality disorder F60.3 Bipolar 1 disorder F31.9 History of drug abuse F19.11 Cannabis use disorder, severe, dependence F12.20
[2025-05-26 20:22] VITALS: BP 126/78; PULSE 99; RESP 20; TEMP 36.7; O2SAT 99
[2025-05-26] MEDS: trazodone 50 mg Tablet PO (20:27)
[2025-05-27 06:00] VITALS: BP 127/79; PULSE 83; RESP 18; TEMP 36.4; O2SAT 99
[2025-05-27] MEDS: nicotine 4 mg lozenge MUCOUS MEM ×3 (06:17→11:39)
[2025-05-27] MEDS: multivitamin therapeutic Tablet 1 TAB PO (07:18)
[2025-05-27] MEDS: OLANZapine 5 mg ODT PO (07:18)
[2025-05-27] MEDS: folic acid 1 mg Tablet PO (07:18)
[2025-05-27] MEDS: paliperidone ER 6 mg Tablet PO (07:18)
[2025-05-27] MEDS: buPROPion XL (24 HR) 150 mg Tablet PO (07:18)
[2025-05-27] MEDS: thiamine 100 mg Tablet PO (07:18)
[2025-05-27] MEDS: escitalopram 10 mg Tablet PO (07:19)
[2025-05-27] MEDS: atomoxetine 40 mg Capsule 80 MG PO (07:19)
[2025-05-27] MEDS: hyDROXYzine 25 mg Capsule 50 MG PO (07:19)
--- NOTE | 2025-05-27 12:15 | P.NPUDS_ITS ---
Diagnoses at Discharge Discharge Diagnosis (1) Depression: Status: Inactive (2) ADD (attention deficit disorder): Status: Acute (3) Explosive personality disorder: Status: Acute (4) Bipolar 1 disorder: Status: Acute (5) History of drug abuse: Status: Acute (6) Cannabis use disorder, severe, dependence: Status: Acute Reason for Visit Reason for Visit: ETOH - SI Brief History: History of Present Illness Micah Aguilar is a 24 year old male who presented to the emergency department with the following report: Chief Complaint: Psychiatric Symptoms Stated Complaint: ETOH - SI Time Seen by Provider: 05/23/25 10:34 History of Present Illness: 24 male presenting to the ED requesting medication management after relapse on methamphetamine and alcohol. Patient reports he was previously seen in this ED and was prescribed psychiatric medications that were helpful, but states he ran out approximately one month ago when no one facilitated his follow-up appointm ent with psychiatry. After discontinuing medications, patient reports he went crazy a little bit and relapsed on methamphetamine and alcohol. Patient reports his blood alcohol content was 1.2 this morning per an outside facility ( [facility] ). He reports drinking a lot last night and a pint this morning. Patient discloses passive suicidal ideation with statements like I don't give a fuck if I and if I , cool, that saves me a lot of trouble. He denies active suicidal intent but mentions past fentanyl use was motivated by wanting to . Patient also expresses homicidal ideation toward someone who owes him money, stating he was tempted to stop by his house and beat the shit out of him. Patient reports he has arrangements to enter rehab on Tuesday. He was admitted to the neuropsychiatric unit for definitive treatment of those issues. He is known to [facility] psychiatry primarily through inpatient services this being the third hospitalization since the end of January. An excerpt of his last discharge summary is included below for context and the fact that there have been no substantive changes. He presents today having presented to the emergency department with with a UDS positive for cannabis and a BAL of 124. He presents reporting he is doing fine but had had a relapse. He reports that he ran into some people in the park when he had left his sober living facility and that started a courtney that was related to methamphetamine. He reports he got really psychotic and kind of lost time. He clearly had lost time as he is under the impression that he was last here 6 to 10 months ago and that he had put together 6 months of sobriety when in fact he was here a little over 2 months ago which was preceded by a hospitalization before that by about a wee k. Making this his third hospitalization in a few months. He reports that he is open to continuing his medication and we discussed the risk benefits and alternatives of increasing his Invega and he understood and agreed to proceed as is documented in this note. We discussed the importance of him avoiding substances like cannabis, like methamphetamine that are contributing to psychosis. He reports that he has a bed available to return to at [facility]. This appears to have been confirmed and we just discussed that we would need to make sure that he is in the right state of mind to return at discharge. Per his 03/06/2025 [facility] inpatient psychiatric discharge summary: Discharge Diagnosis (1) Impulse control disorder, unspecifie d: Status: Acute (2) ADD (attention deficit disorder): Status: Acute (3) Explosive personality disorder: Status: Acute (4) Bipolar 1 disorder: Status: Acute (5) History of drug abuse: Status: Acute (6) Cannabis use disorder, severe, depen dence: Status: Acute Reason for Visit Reason for Visit: MHE Brief History: History of Present Illness Micah Aguilar is a 24 year old male who presented to the emergency department with complaints of having suicidal ideation. The patient had reported to the emergency room staff that he was having thoughts that he may harm himself and reported that he had consumed alcohol the night before. The patient had no blood alcohol level. He had reported that he had been using marijuana as well. The patient stated that he had [facility] a potential [facility] for him to have longterm after he had been homeless for an unspecified amount of time. [facility] The patient reports that he is currently not suicidal. He had stated that he would like to eventually return to work but stated that he had a friend who was staying at another [facility]term and he would like to consider this as an option for him. He had reported no substantiative changes since his last hospitalization 1 week ago. Patient was an unreliable historian. Current medictions: Strattera 40mg at night, lexapro 10mg daily, paliperidone 3mg daily, hydroxyzine 50mg bid, trazodone 50mg at night Urine drug screen was positive for THC. Excerpt from NPU Discharge Summary from 02/27/25 Discharge Diagnosis (1) ADD (attention deficit disorder): Status: Acute (2) Explosive personality disorder: Status: Acute (3) Bipolar 1 disorder: Status: Acute (4) History of drug abuse: Status: Acute (5) Cannabis use disorder, severe, depen dence: Status: Acute Reason for Visit Brief History: History of Present Illness Micah Aguilar is a 24 year old male who presented to the emergency department with the following report: Chief Complaint: Altered Mental Status Stated Complaint: ams Time Seen by Provider: 02/22/25 09:05 Source: patient Mode of arrival: wheelchair Limitations: altered mental status History of Present Illness: Patient is a 24-year-old male presents to ED today from [facility]. He apparently showed up there this morning and had mildly slurred speech which continued to worsen thus prompting them to send him to the emergency department for evaluation. Patient tells me he took 800 mg of THC gummies this morning and drank some alcohol. Patient does not give me an intent when I ask. He can answer a few questions upon arrival but is significantly altered. Vitals are stable upon arrival. MD complaint: altered mental status Onset (ago): hour(s) Timing confirmed by: caregiver Severity: severe Consistency of symptoms: Getting Worse Context: alcohol abuse and drug abuse Associated symptoms: Reports no associated symptoms. He was admitted to the ICU for definitive treatment of those issues. A request was made after he was medically cleared for him to be transferred to the neuropsychiatric unit secondary to him being on a 96-hour hold. He was transferred to the neuropsychiatric unit and presents today reporting that he has been in a sober living facility [facility]. He had gotten in there because he went to the crisis stabilization center and identified to them that he was having some difficulties with addiction and that he wanted and ne eded a place to go. They assisted [facility] in finding [facility] and has been in there for couple months he reports he denies any lethality but reports that last night or the night before when he came to the hospital that he had gotten high intake and a significant amount of Gummies to get high and that he did not think he would get that discombobulated so he returned to [facility] and they have a role that she can be high on the campus so they brought him here to the hospital. He had significant issues with altered mental status which led to him being taken to the ICU for further evaluation. He was eventually medically cleared and transferred to the unit yesterday. He reports that they also felt he needed to get back on his medication which he has been off for couple months but reports it was just that he has been so busy with work and everything. We reviewed his behavioral assessment and he identified this to be an accurate representation of what is going on currently. He was very focused on wanting to be discharged sooner rather than later. He denied any problems at this time and says that he would just like to make sure he is at work 02/25/2025. We discussed the risks, benefits and alternatives of restarting his medications and he understood and agreed to proceed as is documented in this note. Per his 01/14/2025 [facility] outpatient behavioral assessment: Admission Information Reason for Admission: Seeking assistance with obtaining a referral to substance use recovery facility. Chief Complaint: I am concerned about relapsing on alcohol/drugs . Current Presentation: Client appears well groomed & appropriately dressed for the weather. posture is rigid with client making appropriate levels of eye contact. Client was generally cooperative, appearing motivated to rejoin a [facility]. Client's mood is anxious, with client frequently pacing the room and appearing fidgety throughout encounter. Speech is appropriate. Thought process is linear. Average insight/judgement. Client demonstrates awareness of potential triggers leading to relapse, although he appears motivation to restart on the path to sobriety, appearing in the planning stage of change. History Past Diagnosis and Psychiatric History: Self-reports Bipolar I Disorder. History Detail: Client endorses a history of substance use beginning at a very young age. Client reports multiple forms of substance use including fentanyl, methamphetamine, and other substances. He reports this led to poor behaviors and choices, noting it contributed to the decline in familial relationships and potential legal troubles. Client referenced stealing from his grandma, although he notes his grandmother has since forgiven him. Current Social/Environmental Situation Current Living Environment/Relationships: Currently unhoused. Client reports being admitted to [facility] until yesterday. Client states he had been caught with a bottle of alcohol which led to his subsequent removal from the program. While client does have familial support in the form of his Aunt, he is unable to reside with her due to strenuous relations with his Uncle. Client is currently unhoused and fears relapse of drugs if he is unable to be readmitted into another [facility]. Do you have any relationships that are supportive of your recovery? (e.g., family, friends): Yes (Grandma, Aunt) What is your current living situation? (e.g., homeless, living with family): Yes (Currently unhoused, was engaged in services at [facility].) Do you currently live where others drink alcohol and/or use: No Are you currently involved in relationships or situations that pose a threat to your safety?: No Are you currently involved in relationships or situations that could negatively affect your recovery?: No Have you ever had hobbies? How do you spend free time? (e.g., interests; activities; recreation)?: Yes (Videogames, building PCs) Employment/Support Status Education Completed: Some college, was attending [employer]. Training or technical education completed:: Desires to go to school for coding Do you have a profession, trade, or skill?: No Do you have a valid residential recycle driver?s license?: No (No, stolen) Do you have an automobile available for use?: No How long was your longest full-time job?: Tho at [employer] ([employer]) 2 years Usual (or last) occupation? (specify): Last job was [employer] in [place]. Does someone contribute to your support in any way? Is patient receiving any regular support (i.e., gee, food, housing) from family/friend? Include spouse?s contribution; exclude support by an institution: Yes (Aunt) Usual employment pattern, past 3 years? Employment/Support Comments: Client would like to address substance use concerns first. How much money did you receive from the following sources in the past 30 days? Use Patient Rating Scale Use Interviewer Severity Rating Employment/Support Comments: Client does seek employment, noting it helps him stay focused and maintain sobriety. Client identifities a contributing facotr towards his relapse included being told he would be unable to work until he had been at the [email or web address]] for another year. Substance Use History Are you currently experiencing withdrawal symptoms such as tremors, excessive sweating, rapid heart rate, blackouts, anxiety, vomiting. etc.?: No Do you get physically ill when you stop using alcohol/or drugs?: Yes (Slept for a week straight, depressive systems, ) Do you have a history of serious withdrawal, seizures, or life-threatening symptoms during withdrawal?: Yes Do you find yourself using more alcohol and/or other drugs than you intend to?: Yes (Relapsed on alcohol due to environmental stressors/familial stressors.) Alcohol or Other Drug Used past 6 months Prior use? (life time) Route of Use Frequency(past 6 months) Duration (of use) Date of last use Alcohol yes yes drink 1/5 per day 01/13/25 Amphetamines (meth , ice, crank) yes started at age 13 th intraveneous eightball a day 07/29/24 Cocaine Heroin Opioid /Opiates (m isuse or w/out pre scription) no last year smoking frequent 12/29/22 Marijuana (cbd, da bs) yes yes daily 07/29/24 Sedatives (Benzo, sleep meds) (misus e or w/out prescri ption) Hallucinogens Inhalants Over the Counter ( Cough syrup, Diet) Nicotine (cigarett es, chew, vape) yes started at 18 pack a day today Other Relapse, Cont. Use Are you aware of your triggers to use alcohol and/or drugs: Yes (Anxiety, familial/social stressors, depression. Has desire to feel good.) Please check of any of the following which you know are triggers for you:: Strong Cravings, Difficulty with feelings, Relationship problems and Environment Please Describe: Gets social anxiety and leans on alcohol as a coping mechanisms. What do you typically do if you are triggered: I start to feel corned and have to urge to run away. Have you ever tried to control your use, stop or cut down : Yes What does that look like: Was engaged in in-patient recovery services, was discharged from [facility] for breaking policy due to relapse on alcohol. 7.What is the longest period of time that you have gone without using alcohol and/or other drugs: Explain: 5 months.What helps you to not use drugs /alcohol, what doesn't help Explain: What Helps: Working, staying busy, not having to opportunity to use, keeping accountability. What doesnt help: being around it, difficulty with feelings, access to substances Readiness to Change Is your alcohol and/or other drug use affecting any of the following?: Work, Relationships, Mental Health and Physical Health Do you continue to use alcohol and/or other drugs despite having it affect you?: Yes How important is it for you to receive treatment for:: Alcohol: Extremely and Drugs: Extremely Is anyone making you seek treatment or asking you to be in recovery?: No Assessment Summary Strengths, Current Resources, Barriers to Treatment: Strengths: Love/motivation stemming from family support, Feels obligated to family, little sister, and his aunt. Current Resources: Aunt, little sister. Barriers to Treatment: Unhoused, financial instability, lack of community resources, lack of transportation. Assessment Summary Dialogue: Micah is a 24 year old male whom presents to the Crisis [facility] requesting assistance locating a [facility] recovery facility. Client endorses a history of substance use, noting he had maintained sobriety for approximately 5 months. Micah notes having been a resident of [facility] recovery facility, which he identifies as being the primary motivating factor of his stint of sobriety. Client notes he had initially utilized the recovery facility after being hospitalized as a result of his past substance use. Client endorses severe symptoms of withdrawal during his hospitalization stay. Client does report being diagnosed as Bipolar one upon discharge from his hospitalization. While client was discahrge from the recovery fcility due to relapse on alcohol, client expresses a desire to reachieve sobriety by being readmitted into a [facility] facility. Identified Treatment Goals Identified Treatment Goal(s): Substance use services Hospital Course Hospital Course He slowly acclimated to the individual, group and milieu therapies. He presented after an overdose that he reported was just trying to get high after he was in a less altered mental status. He had a history of mental health treatment and have been off of his medications. Strattera 40 mg p.o. daily, Lexapro 10 mg p.o. every morning and Invega which were all past medications were restarted prior to discharge. He had been on the long-acting Abilify preparation. But we started back with the oral. He also got Vistaril for anxiety. He had no difficulty with the medications. That, abstinence from substances as well as the treatment milieu had a positive response. He worked with the social work team to establish appropriate follow-up services and was connected to appropriate community resources. He returned to the program [facility] that he had been staying at prior to admission. He was able to contract for safety outside of the hospital prior to discharge. During the hospitalization, patient had routine laboratory studies which were within normal limits except for few outliers. Additionally there was a general medical evaluation which was also within normal limits and revealed no new acute processes. At the time of discharge, he denied psychosis or lethality. Mood and anxiety were well managed. Patient endorsed a plan to avoid all drugs of abuse, and agreed to follow-up with the aftercare recommendations of the treatment team. Patient was evaluated and deemed to be absent credible lethality, and achieved maximum benefit from inpatient hospitalization, so he was discharged. Hospital Course During the hospitalization, the patient had routine laboratory studies which were within normal limits except for a few outliers. Additionally, there was a general medical evaluation which was also within normal limits and revealed no new acute processes. At the time of discharge, lethality was denied and patient continued to report chronic problems with attention and concentration. Strattera was increased to 40mg twice a day prior to discharge. He had accepted desire to go to [facility] for further extended stay to maintain sobriety and avoid homelessness. Mood and anxiety were well managed. The patient endorsed a plan to avoid all drugs of abuse and follow up with the aftercare recommendations of the treatment team. The patient was evaluated and deemed to be absent credible lethality and had achieved the maximum benefit from an inpatient hospitalization, and so was discharged. Hospital Course Hospital Course He had reported that he had been noncompliant with his medications prior to admission. He was restarted on his outpatient medications including Lexapro, Strattera, Invega, and trazodone. Lexapro was increased to 20 mg daily. Strattera was increased to 80 mg daily to target ADHD symptoms. BuSpar was discontinued. Invega remained at 6 mg daily and trazodone was restarted at 50 mg at night. During the hospitalization, the patient had routine laboratory studies which were within normal limits except for a few outliers.? Additionally, there was a general medical evaluation which was also within normal limits and revealed no new acute processes.? At the time of discharge, lethality was denied and psychosis was resolving.? Mood and anxiety were well managed.? The patient endorsed a plan to avoid all drugs of abuse and follow up with the aftercare recommendations of the treatment team.? The patient was evaluated and deemed to be absent credible lethality and had achieved the maximum benefit from an inpatient hospitalization, and so was discharged. ?He had expressed desire to consider inpatient substance abuse treatment and was sent directly to [facility] for further substance abuse treatment. Involuntary Hold Information Hold Status: Legal Status: 96 Hour Hold Date/Time Hold Expires: 05/29/2025 @ 1315 Mental Status Exam MSE Comments: This is an overweight versus obese white male in hospital scrubs with adequate grooming and eye contact. No abnormal movements except for psychomotor retardation. Cooperative with exam and mild to moderate distress. Speech was normal in rate and volume. Mood described as okay. Affect appeared euthymic on discharge. Thought process was linear and organized. Thought content: Patient endorsed some suicidal ideation but denied homicidal ideation, there were no delusions reported or noted. He denied current auditory or visual hallucinations and did not appear to be responding to internal stimuli. Attention and concentration were intact. His recent and remote memory was mostly reliable but no more formally tested. He is alert and oriented times person and place and time. Insight was poor. Judgment was fair and impulse control was fair on discharge. Discharge Data Studies Completed and Pending: Laboratory Results WBC 6.76 10^3/uL (3.2 9-11.43) 05/23/25 10:41 RBC 5.11 10^6/uL (3.8 5-5.65) 05/23/25 10:41 Hgb 14.90 g/dL (11.27 -16.99) 05/23/25 10:41 Hct 44.4 % (37-53) 05/23/25 10:41 MCV 86.9 fl (82-101) 05/23/25 10:41 MCH 29.2 pg (27-33) 05/23/25 10:41 MCHC 33.6 g/dL (30-55) 05/23/25 10:41 RDW 13.8 % (12.1-15.1 ) 05/23/25 10:41 Plt Count 321 10^3/cmm (157 -399) 05/23/25 10:41 MPV 9.8 fL (7.4-10.4) 05/23/25 10:41 Neut % (Auto) 65.6 % 05/23/25 10:41 Lymph % (Auto) 27.5 % 05/23/25 10:41 [place] % (Auto) 5.0 % 05/23/25 10:41 Eos % (Auto) 0.9 % 05/23/25 10:41 Baso % (Auto) 0.6 % 05/23/25 10:41 Neut # (Auto) 4.43 10^3/uL (1.8 -7.7) 05/23/25 10:41 Lymph # (Auto) 1.9 10^3/uL (0.8- 4.8) 05/23/25 10:41 Marathon # (Auto) 0.3 10^3/uL (0.2- 0.9) 05/23/25 10:41 Eos # (Auto) 0.1 10^3/uL (0.0- 0.8) 05/23/25 10:41 Baso # (Auto) 0.0 10^3/uL (0.0- 0.1) 05/23/25 10:41 Nucleated RBC % (a uto) 0 % 05/23/25 10:41 Nucleated RBCs # 0.0 /100WBC 05/23/25 10:41 Sodium 145 mmol/L (136-1 45) 05/23/25 10:41 Potassium 3.8 mmol/L (3.5-5 .1) 05/23/25 10:41 Chloride 106 mmol/L (98-10 7) 05/23/25 10:41 Carbon Dioxide 26 mmol/L (22-29) 05/23/25 10:41 Anion Gap 16.8 (5-19) 05/23/25 10:41 BUN 10 mg/dL (6-20) 05/23/25 10:41 Creatinine 1.0 mg/dL (0.7-1. 2) 05/23/25 10:41 GFR Calculation 91.8 mL/min (90-1 30) 05/23/25 10:41 Glucose 89 mg/dL (65-115) 05/23/25 10:41 POC Glucose 106 mg/dL (70-110 ) 05/24/25 07:25 Calculated Osmolal ity 299 mOsm/kg (285- 295) H 05/23/25 10:41 Calcium 9.2 mg/dL (8.5-10 .5) 05/23/25 10:41 Total Bilirubin 0.4 mg/dL (0.15-1 .2) 05/23/25 10:41 AST 23 U/L (0-40) 05/23/25 10:41 ALT 41 U/L (0-41) 05/23/25 10:41 Alkaline Phosphata se 93 U/L (40-130) 05/23/25 10:41 Total Protein 7.0 g/dL (6.6-8.7 ) 05/23/25 10:41 Albumin 4.6 g/dL (3.5-5.2 ) 05/23/25 10:41 Globulin 2.4 g/dL (1.3-4.6 ) 05/23/25 10:41 TSH 1.69 uIU/mL (0.27 -4.20) 05/23/25 10:41 Urine Color Yellow (Yellow) 05/23/25 10:37 Urine Appearance Clear (CLEAR) 05/23/25 10:37 Urine pH 6.0 (5-7) 05/23/25 10:37 Ur Specific Gravit y 1.009 (1.005-1.0 30) 05/23/25 10:37 Urine Protein Negative (Negati ve) 05/23/25 10:37 Urine Glucose (UA) Negative (Normal ) 05/23/25 10:37 Urine Ketones Negative (Negati ve) 05/23/25 10:37 Urine Blood Negative (Negati ve) 05/23/25 10:37 Urine Nitrate Negative (Negati ve) 05/23/25 10:37 Urine Bilirubin Negative (Negati ve) 05/23/25 10:37 Urine Urobilinogen 1.0 mg/dL (Negati ve) 05/23/25 10:37 Ur Leukocyte Nathalie ase Negative (Negati ve) 05/23/25 10:37 Urine RBC 0-2 /hpf (0-2) 05/23/25 10:37 Urine WBC 0-5 /hpf (0-5) 05/23/25 10:37 Ur Squamous Epith Cells 0-5 /hpf (0-5) 05/23/25 10:37 Amorphous Sediment Not Reportable 05/23/25 10:37 Urine Bacteria None seen /hpf (N ONE) 05/23/25 10:37 Hyaline Casts 0-4 /lpf H 05/23/25 10:37 Salicylates < 0.3 mg/dL (3-10 ) L 05/23/25 10:41 Urine Opiates Scre en Negative ng/mL (N egative) 05/23/25 10:37 Acetaminophen < 5.0 ug/mL (10-3 0) L 05/23/25 10:41 Ur Barbiturates Sc reen Negative ng/mL (N egative) 05/23/25 10:37 Ur Phencyclidine S crn Negative ng/mL (N egative) 05/23/25 10:37 Ur Amphetamines Sc reen Negative ng/mL (N egative) 05/23/25 10:37 U Benzodiazepines Scrn Negative ng/mL (N egative) 05/23/25 10:37 Urine Cocaine Scre en Negative ng/mL (N egative) 05/23/25 10:37 U Marijuana (THC) Screen Positive ng/mL (N egative) H 05/23/25 10:37 Ethyl Alcohol 124 mg/dL (0-10) H 05/23/25 10:41 Vitals: Last Vital Signs Temp 97.6 F 05/27/25 06:00 Pulse 83 05/27/25 06:00 Resp 18 05/27/25 06:00 BP 127/79 05/27/25 06:00 Pulse Ox 99 05/27/25 06:00 O2 Del Method Room Air 05/27/25 06:00 Discharge Plan Discharge Patient Disposition: Home Condition: Stable Prescriptions: New atomoxetine 40 mg Capsule 80 mg PO DAILY 7 Days Qty: 14 1RF escitalopram oxalate 10 mg Tablet 20 mg PO DAILY 7 Days Qty: 14 1RF folic acid 1 mg Tablet 1 mg PO DAILY 7 Days Qty: 7 1RF paliperidone 6 mg Tablet Extended Release 24hr 6 mg PO DAILY 7 Days Qty: 7 1RF thiamine mononitrate (vit B1) [Vitamin B-1 (mononitrate)] 100 mg Tablet 100 mg PO DAILY 7 Days Qty: 7 1RF trazodone 50 mg Tablet 50 mg PO BEDTIME 7 Days Qty: 7 1RF Discontinued escitalopram oxalate 10 mg Tablet 10 mg PO DAILY 30 Days Qty: 30 1RF paliperidone 3 mg Tablet Extended Release 24hr 3 mg PO DAILY 30 Days Qty: 30 1RF trazodone 50 mg tablet 50 mg PO BEDTIME buspirone 10 mg Tablet 10 mg PO TID atomoxetine 60 mg capsule 60 mg PO DAILY bupropion HCl [Wellbutrin XL] 150 mg Tablet Extended Release 24 Hr 150 mg PO QAM Discharge Orders: Discharge Order (Routine); Ordered 05/27/25 Ordered By: Miguel Montague Referrals: [facility] [Outside] - 05/29/25 2:00 pm Referral Note: Assessment for services with [facility] [Outside] - 05/27/25 2:00 pm Referral Note: REHAB services Des Flores FNP [Primary Care Provider, [facility]] Discharge Diet: Usual diet Discharge Activity: Resume usual activity Patient Instructions: Alcohol Abuse, Generalized Anxiety Disorder, Opioid Safety, Patient Portal & Gm Instructions Discharge Attestations NPU Time Spent in Discharge Care*: less than 30 min Specific Discharge Activities: Specific discharge activities: educating patient, discussing with director of casework/social workers/dc planners and documenting/other paperwork Coding Level of Care Code Acute Code for g Fwd Diagnoses Depression F32.A ADD (attention deficit disorder) F98.8 Explosive personality disorder F60.3 Bipolar 1 disorder F31.9 History of drug abuse F19.11 Cannabis use disorder, severe, dependence F12.20
--- NOTE | 2025-05-27 12:25 | PC.NURSE ---
30 day supply of medications called into [facility]. Let [facility] know that pt. was going to be in pt. at [facility].
[2025-05-27 12:28] VITALS: BP 127/79; PULSE 83; RESP 18; TEMP 36.4; O2SAT 99
== END 2025-05-27 13:26 | disposition home or self-care (01) | DRG 881 ==
LOC: ER 11:20 → NP 18:47
PROVIDERS: Emergency Medicine; Admitting Provider Psychiatry & Neurology Psychiatry; Emergency Provider Emergency Medicine; PCP Nurse Practitioner Family; Visit Provider Psychiatry & Neurology Psychiatry
DX: F32.A Depression, unspecified (principal); R45.851 Suicidal ideations; F98.8 Other specified behavioral and emotional disorders with onset usually occurring in childhood and adolescence; F60.3 Borderline personality disorder; F12.20 Cannabis dependence, uncomplicated; F15.10 Other stimulant abuse, uncomplicated; F10.10 Alcohol abuse, uncomplicated; Y90.6 Blood alcohol level of 120-199 mg/100 ml; R45.850 Homicidal ideations; F41.0 Panic disorder [episodic paroxysmal anxiety]; E66.9 Obesity, unspecified; Z68.30 Body mass index [BMI] 30.0-30.9, adult; Z91.128 Patient's intentional underdosing of medication regimen for other reason
CPT/HCPCS: 36415; 36416; 80053; 80306; 80307; 81001; 82962; 84443; 85025; 93005; 97150; 97165; 99285; J9999

== ENCOUNTER 2025-06-06 16:34 | Emergency (ER) | payer MEDICAID, SELFPAY ==
--- OUTSIDE RECORDS SUMMARY | 2024-02-01 06:20 | XMS_ITS ---
Author Organization [facility] Address [address] [place] [address] Care Team Providers Care Warehouse Shipping Receiving Clerk Name Role Phone Eric Dominguez Primary Care Provider [phone] Brian Villalba [phone] REASON FOR VISIT establish care-needs to see medicaid also Social History Sex Assigned At : Social History Observation Description Sex Assigned At Male Encounters Encounter Location Date Provider Diagnosis 18th [facility] [address] [place] [address] 02/01/2024 Brian Villalba Plan Of Treatment No Information Progress Notes * Curt ALVARADOonDOB: 0 (24 yo M)Acc No.[id number]:02/01/2024 Progress Notes Patient: Micah Valdez Provider: NATHANIEL Novoa :2000 A ge:23 Y S ex:Male Date:02/01/2024 Address:[address], [facility] Pcp:Eric Dominguez Subjective: * Chief Complaints: * E stablish care-needs to see medicaid also * Electronic signature of NATHANIEL Kiran on 06/06/2025 at 04:39 PM CDT Sign off status: Pending * Provider: NATHANIEL Novoa Date: 02/01/2024 Generated for Printi ng/Faxing/eTransmitting on: 0 06/06/2025 04:39 PM CDT
--- OUTSIDE RECORDS SUMMARY | 2024-02-21 03:00 | XMS_ITS ---
Author Organization [facility] Address [address] [place] [address] [place] [address] Care Team Providers Care Healthcare Administration Intern Name Role Phone Alberto Eric Primary Care Provider REASON FOR VISIT establish care-needs to see medicaid also Social History Sex Assigned At : Social History Observation Description Sex Assigned At Male Encounters Encounter Location Date Provider Diagnosis 18 [facility] [address] [place] [address] 02/21/2024 Eric Dominguez Plan Of Treatment No Information Progress Notes * Ignacio ALVARADOmamtaonDOB: 0 (24 yo M)Acc No.[id number]:02/21/2024 Progress Notes Patient: Micah Valdez Provider: Nat Dominguez MD :2000 A ge:23 Y S ex:Male Date:02/21/2024 [facility] [facility] * Electronic signature of Salvatore Dominguez MD on 06/06/2025 at 04:39 PM CDT Sign off status: Pending * Provider: Nat Dominguez MD Date: 0 02/21/2024 Generated for Printi ng/Faaveryg/eTransmitting on: 0 06/06/2025 04:39 PM CDT
--- OUTSIDE RECORDS SUMMARY | 2025-06-06 16:39 | XMS_ITS | Patient Health Record ---
Author Organization [facility] Address [address] [place] [address] Care Team Providers Care Audio/Visual Manager Name Role Phone Eric Dominguez Primary Care Provider Allergies No Known Allergies Reason For Referral No Information Medications Medication SIG (Take, Route, Frequency, Duration) Notes Start Date End Date Status cloNIDine HCl 0.1 MG Tablet 1 tablet Orally Once a day; Duration: 30 days please deliver to [place] Active Abilify 5 MG Tablet 1 tablet Orally Once a day; Duration: 30 days please deliver to [place] Active hydrOXYzine HCl 25 MG Tablet 1 or 2 tablets Orally every 8 hrs; Duration: 30 days as need for anxiety [facility] Active traZODone HCl 50 MG Tablet 1 or 2 tablet at bedtime as needed Orally Once a day; Duration: 30 days please deliver to [place] Active Vyvanse 40 MG Capsule 1 capsule [...] Status W/U Status Risk Notes Problem Smoking (12368554) Smoking (F17.200) Active confirmed Problem Substance abuse (9876220893) Substance abuse (F19.10) Active confirmed Problem Generalized anxiety disorder (13030917) Anxiety, generalized (F41.1) Active confirmed Problem Attention deficit hyperactivity disorder (896188433) ADHD (F90.9) Active confirmed Plan Of Treatment No Information Insurance Providers Payer Name Payer Address Payer Phone Subscriber Number Group Number Insured Name Patient Relationship to Insured Coverage Start Date Coverage End Date PE for Adults [id number] 20 18-02-31 Micah Aguilar Self - patient is the insured Medical (General) History Medical History History ICD Code Substance abuse F19.10 ADHD F90.9
[2025-06-06 16:45] VITALS: BP 155/77; PULSE 94; RESP 18; TEMP 37.1; O2SAT 98; BMI 20.2
--- NOTE | 2025-06-06 16:52 | ECG_ITS ---
[facility] Test Date: 2025-06-06 Pat Name: Micah Aguilar Department: Room: Gender: Male Dyslexia Teacher: : 2000 Requested By: Zach Payne Order Number: [id number] Ken MD: Belinda Omer M.D. Measurements Intervals [place] Rate: 88 P: 76 SD: 147 QRS: 92 QRSD: 104 T: 61 QT: 355 QTc: 431 Interpretive Statements SINUS RHYTHM WITH SINUS ARRHYTHMIA POSSIBLE RIGHT ATRIAL ENLARGEMENT [0.25mV P-WAVE] BORDERLINE RIGHT AXIS DEVIATION [QRS AXIS > 90] INCOMPLETE RIGHT BUNDLE BRANCH BLOCK [90+ ms QRS DURATION, TERMINAL R IN V1/V2, 40+ ms S IN I/aVL/V4/V5/V6] INTERPRETATION BASED ON A DEFAULT AGE OF 40 YEARS Compared to ECG 05/23/2025 11:20:56 No significant changes Electronically Signed On 06-07-2025 15:20:50 CDT by Belinda Omer M.D. [id number]
[2025-06-06 18:37] VITALS: BP 143/96; PULSE 83; RESP 16; O2SAT 100
[2025-06-06 18:37] LABS: Hematocrit 52.0 % (37-53); Hemoglobin 17.40 g/dL (11.27-16.99); Mean Corpuscular HGB Conc 33.5 g/dL (30-55); Mean Corpuscular Hemoglobin 29.2 pg (27-33); Mean Corpuscular Volume 87.4 fl (82-101); Nucleated Red Blood Cells % 0 %; Platelet Count 243 10^3/cmm (157-399); Red Blood Count 5.95 10^6/uL (3.85-5.65); White Blood Count 6.08 10^3/uL (3.29-11.43)
--- NOTE | 2025-06-06 18:56 | ECG_ITS ---
[facility] Date: 2025-06-06 Pat Name: Micah Aguilar Department: Room: Gender: Male [address] Bailiff: : 2000 Requested By: Keiry Payne Order Number: [id number] Rogers MD: Belinda Omer M.D. Measurements Intervals [place] Rate: 82 P: 64 [place]: 149 QRS: 85 QRSD: 105 T: 54 QT: 367 QTc: 430 Interpretive Statements SINUS RHYTHM INCOMPLETE RIGHT BUNDLE BRANCH BLOCK [90+ ms QRS DURATION, TERMINAL R IN V1/V2, 40+ ms S IN I/aVL/V4/V5/V6] Compared to ECG 06/06/2025 16:48:56 Sinus arrhythmia no longer present Electronically Signed On 06-07-2025 15:32:26 CDT by Belinda Omer M.D. [email or web address]
[2025-06-06 19:01] LABS: Troponin(5th) Baseline < 6 ng/L (0-15)
[2025-06-06 19:02] LABS: Glucose Urine UA Negative (Normal); Nitrate Urine Negative (Negative); Specific Gravity, Urine 1.013 (1.005-1.030)
[2025-06-06 19:09] LABS: PCP Screen Urine Negative (Negative)
[2025-06-06 19:11] LABS: Alanine Aminotransferase 31 U/L (0-41); Albumin Level 5.0 g/dL (3.5-5.2); Alkaline Phosphatase 98 U/L (40-130); Anion Gap 17.7 (5-19); Aspartate Amino Transferase 28 U/L (0-40); Blood Urea Nitrogen 11 mg/dL (6-20); Calcium 9.8 mg/dL (8.5-10.5); Carbon Dioxide 26 mmol/L (22-29); Chloride 99 mmol/L (98-107); Creatinine Clr Calc Pharmacy 143.9697; Globulin 2.3 g/dL (1.3-4.6); Glucose 81 mg/dL (65-115); Magnesium 2.2 mg/dL (1.7-2.3); Osmolality Calculated 286 mOsm/kg (285-295); Potassium 3.7 mmol/L (3.5-5.1); Sodium 139 mmol/L (136-145); Thyroid Stimulating Hormone 2.97 uIU/mL (0.27-4.20); Total Protein 7.3 g/dL (6.6-8.7)
--- NOTE | 2025-06-06 19:11 | ED_ITS ---
HPI - Arrhythmia/Palpitations 2 General: Chief Complaint: Arrhythmia/Palpitations Stated Complaint: syncope,abnormal hr Time Seen by Provider: 06/06/25 18:31 History of Present Illness: Patient is 24-year-old gentleman currently in rehab, presents to ED with the feeling as being passing out, lightheadedness, dizziness. Diet includes 6-8 cups of coffee a day, and he thinks he drinks plenty of water. He states he did eat today. Associated symptoms: Reports anxiety; Deny nausea or vomiting Related Data Previous Rx's ?Medication ?Instructions ?Recorded atomoxetine 40 mg capsule 80 mg (2 x 40 mg) PO DAILY 7 days 05/27/25 #14 caps escitalopram oxalate 10 mg tablet 20 mg (2 x 10 mg) PO DAILY 7 days 05/27/25 #14 tabs folic acid 1 mg tablet 1 mg PO DAILY 7 days #7 tabs 05/27/25 paliperidone 6 mg tablet,extended 6 mg PO DAILY 7 days #7 tabs 05/27/25 release 24 hr thiamine mononitrate (vit B1) 100 100 mg PO DAILY 7 da ys #7 tabs 05/27/25 mg tablet (Vitamin B-1 (mononitrate)) trazodone 50 mg tablet 50 mg PO BEDTIME 7 days #7 t abs 05/27/25 Allergies Allergy/AdvReac Type Severity Reaction Status Date / Time No Known Allergies Allergy Verified 03/21/25 13:45 Review of Systems 2 Const: Denies: fever(s) or chills Eyes: Denies: change in vision or blurry vision ENMT: Denies: throat pain or nasal congestion Card: Denies: chest pain or palpitations Resp: Denies: dyspnea or productive cough GI: Denies: abdominal pain, nausea or vomiting : Denies: flank pain or difficulty urinating Musc: Denies: neck pain or back pain Neuro: Reports: weakness in extremities, dizziness and vertigo; Denies: headache(s) or numbness in extremities Psych: Reports: anxiety; Denies: depression PFSH ED 2 PFSH: Medical History (Updated 06/07/25 @ 01:01 by KENNY Austin) Psychiatric care History of drug abuse Panic attacks Anxiety and depression Surgical History History of surgery on arm left Social History Smoking and tobacco/nicotine status: current every day tobacco/nicotine user Alcohol intake: former Substance/Drug Use: former Physical Exam 2 Const: COMMON NORMALS: patient oriented x3 HENMT: COMMON NORMALS: normocephalic and atraumatic HEAD & SCALP: n ormocephalic and atraumatic Neck/C-Spine: COMMON NORMALS: full ROM and no lymphadenopathy Chest: COMMONS NORMALS: normal inspection of the chest and normal palpation of entire chest wall Resp: COMMON NORMALS: normal respiratory effort and No retractions GI: COMMON NORMALS: Normal to inspection, nondistended, normoactive bowel sounds present, Soft to palpation and non-tender PALPATION: Yes Soft to palpation : COMMON NORMALS: Yes no CVA tenderness BLADDER/KIDNEY EXAM: Yes no CVA tenderness Back/Pelvis: COMMON NORMALS: no CVA tenderness and thoracic and lumbar spine normal to inspection Extremity: COMMON NORMALS: normal to inspection, full ROM and capillary refill normal Neuro: COMMON NORMALS: patient oriented x3, CN's II-XII intact bilaterally and moves all extremities Psych: COMMON NORMALS: mental status grossly normal Course 2 Reevaluation(s): Reevaluation #1: improved after 1 L po fluids Vital Signs: Vital signs: Vital Signs Temperature 98.7 F 06/06/25 16:45 Pulse Rate 87 06/06/25 20:49 Respiratory Rate 16 06/06/25 18:37 Blood Pressure 131/93 06/06/25 20:49 Pulse Oximetry 96 06/06/25 20:49 Oxygen Delivery Me thod Room Air 06/06/25 20:00 MDM - Arrhythmia/Palpitations Medical Decision Making Patient is a 24-year-old with lightheadedness, dizziness, and positive orthostatic vital signs. He is clinically dehydrated. I have advised noncaffeinated beverages x 2500 mL/day, timed. I have asked him to reduce his coffee intake to 2 cups regular cups in a day. Patient states understanding and will return to ED for further issues. Medical Records I reviewed the patient's medical records. Lab Data I reviewed the patient's lab results. 06/06/25 18:30 06/06/25 18:30 Laboratory Results WBC 6.08 10^3/uL (3.29-11.43) 06/06/25 18:30 RBC 5.95 10^6/uL (3.85-5.65) H 06/06/25 18:30 Hgb 17.40 g/dL (11.27-16.99) H 06/06/25 18:30 Hct 52.0 % (37-53) 06/06/25 18:30 MCV 87.4 fl (82-101) 06/06/25 18: MCH 29.2 pg (27-33) 06/06/25 18: MCHC 33.5 g/dL (30-55) 06/06/25 18: RDW 12.8 % (12.1-15.1) 06/06/25 18: Plt Count 243 10^3/cmm (157-399) 06/06/25 18:30 MPV 11.1 fL (7.4-10.4) H 06/06/25 18:30 Neut % (Auto) 56.8 % 06/06/25 18: Lymph % (Auto) 34.7 % 06/06/25 18:30 [place] % (Auto) 6.4 % 06/06/25 18:30 Eos % (Auto) 1.2 % 06/06/25 18: Baso % (Auto) 0.7 % 06/06/25 18:30 Neut # (Auto) 3.46 10^3/uL (1.8-7.7) 06/06/25 18:30 Lymph # (Auto) 2.1 10^3/uL (0.8-4.8) 06/06/25 18:30 [place] # (Auto) 0.4 10^3/uL (0.2-0.9) 06/06/25 18:30 Eos # (Auto) 0.1 10^3/uL (0.0-0.8) 06/06/25 18:30 Baso # (Auto) 0.0 10^3/uL (0.0-0.1) 06/06/25 18:30 Nucleated RBC % (auto) 0 % 06/06/25 18:30 Nucleated RBCs # 0.0 /100WBC 06/06/25 18: Sodium 139 mmol/L (136-145) 06/06/25 18:30 Potassium 3.7 mmol/L (3.5-5.1) 06/06/25 18:30 Chloride 99 mmol/L (98-107) 06/06/25 18: Carbon Dioxide 26 mmol/L (22-29) 06/06/25 18:30 Anion Gap 17.7 (5-19) 06/06/25 18:30 BUN 11 mg/dL (6-20) 06/06/25 18: Creatinine 0.8 mg/dL (0.7-1.2) 06/06/25 18: GFR Calculation 118.8 mL/min (90-130) 06/06/25 18: Glucose 81 mg/dL (65-115) 06/06/25 18: Calculated Osmolality 286 mOsm/kg (285-295) 06/06/25 18: Calcium 9.8 mg/dL (8.5-10.5) 06/06/25 18: Magnesium 2.2 mg/dL (1.7-2.3) 06/06/25 18: Total Bilirubin 0.4 mg/dL (0.15-1.2) 06/06/25 18: AST 28 U/L (0-40) 06/06/25 18: ALT 31 U/L (0-41) 06/06/25 18: Alkaline Phosphatase 98 U/L (40-130) 06/06/25 18: Troponin T Baseline < 6 ng/L (0-15) 06/06/25 18: Total Protein 7.3 g/dL (6.6-8.7) 06/06/25 18: Albumin 5.0 g/dL (3.5-5.2) 06/06/25 18: Globulin 2.3 g/dL (1.3-4.6) 06/06/25 18: TSH 2.97 uIU/mL (0.27-4.20) 06/06/25 18: Urine Color Yellow (Yellow) 06/06/25 18: Urine Appearance Clear (CLEAR) 06/06/25: Urine pH 7.5 (5-7) 06/06/25 18: Ur Specific [place] 1.013 (1.005-1.030) 06/06/25:44 Urine Protein Negative (Negative) 06/06/25 18:44 Urine Glucose (UA) Negative (Normal) 06/06/25 18:44 Urine Ketones Negative (Negative) 06/06/25 18:44 Urine Blood Negative (Negative) 06/06/25 18:44 Urine Nitrate Negative (Negative) 06/06/25 18:44 Urine Bilirubin Negative (Negative) 06/06/25 18:44 Urine Urobilinogen 0.2 mg/dL (Negative) 06/06/25 18:44 Ur Leukocyte Esterase Negative (Negative) 06/06/25 18:44 Urine RBC 0-2 /hpf (0-2) 06/06/25 18:44 Urine WBC 0-5 /hpf (0-5) 06/06/25 18:44 Ur Squamous Epith Cells 0-5 /hpf (0-5) 06/06/25 18:44 Amorphous Sediment Not Reportable 06/06/25 18:44 Urine Bacteria None seen /hpf (NONE) 06/06/25 18:44 Hyaline Casts 0-4 /lpf H 06/06/25 18:44 Urine Opiates Screen Negative ng/mL (Negative) 06/06/25 18:44 Ur Barbiturates Screen Negative ng/mL (Negative) 06/06/25 18:44 Ur Phencyclidine Scrn Negative ng/mL (Negative) 06/06/25 18:44 Ur Amphetamines Screen Negative ng/mL (Negative) 06/06/25 18:44 U Benzodiazepines Scrn Negative ng/mL (Negative) 06/06/25 18:44 Urine Cocaine Screen Negative ng/mL (Negative) 06/06/25 18:44 U Marijuana (THC) Screen Positive ng/mL (Negative) H 06/06/25 18:44 No radiology studies performed this visit EKG Data EKG 1: Interpretation: Left axis, LVH, no ST segment elevation. Discharge Plan Discharge Patient Disposition: Home Clinical Impression: Orthostatic hypotension, Dehydration Condition: Stable Prescriptions: No Action atomoxetine 40 mg Capsule 80 mg PO DAILY 7 Days Qty: 14 1RF escitalopram oxalate 10 mg Tablet 20 mg PO DAILY 7 Days Qty: 14 1RF folic acid 1 mg Tablet 1 mg PO DAILY 7 Days Qty: 7 1RF paliperidone 6 mg Tablet Extended Release 24hr 6 mg PO DAILY 7 Days Qty: 7 1RF thiamine mononitrate (vit B1) [Vitamin B-1 (mononitrate)] 100 mg Tablet 100 mg PO DAILY 7 Days Qty: 7 1RF trazodone 50 mg Tablet 50 mg PO BEDTIME 7 Days Qty: 7 1RF Discharge Orders: Discharge ED (Routine); Ordered 06/06/25 Ordered By: Cecilia Tracey Referrals: Des Flores, MUD WORKER [Primary Care Provider, Family Practice] Discharge Diet: As Directed Discharge Activity: Resume usual activity Patient Instructions: Dehydration (ED), Syncope (ED), Patient Portal & Gm Instructions Activity Restrictions/Additional Instructions: Intake 2500 mL/day of noncaffeinated beverage. Schedule your drinking times, do not wait until you are thirsty 2 cups of coffee/per day. Return to ED with worsening symptoms. Print Language: Lithuanian Coding Level of Care Code ED Cement Worker for Dennise Barnard
[2025-06-06 20:00] VITALS: PULSE 86; O2SAT 96
[2025-06-06 20:49] VITALS: BP 131/93; PULSE 87; O2SAT 96
== END 2025-06-06 20:49 | disposition home or self-care (01) ==
PROVIDERS: Emergency Medicine; Emergency Provider Physician Assistant; PCP Nurse Practitioner Family
DX: I95.1 Orthostatic hypotension (principal); E86.0 Dehydration; Z72.0 Tobacco use
CPT/HCPCS: 36415; 80053; 80306; 81001; 83735; 84443; 84484; 85025; 93005; 99284

== ENCOUNTER 2025-06-10 09:28 | Inpatient (IN) | payer MEDICAID, SELFPAY ==
--- OUTSIDE RECORDS SUMMARY | 2024-02-01 06:20 | XMS_ITS ---
Author Organization [facility] Address [address] [place] [address] Care Team Providers Care Menagerie Superintendent Name Role Phone Eric Dominguez Primary Care Provider Brian Villalba [phone] REASON FOR VISIT establish care-needs to see medicaid also Social History Sex Assigned At : Social History Observation Description Sex Assigned At Male Encounters Encounter Location Date Provider Diagnosis [address] [facility] [address] [place] [address] 02/01/2024 Brian Villalba Plan Of Treatment No Information Progress Notes * Curt ALVARADOonDOB: 0 (24 yo M)Acc No.[id number]:02/01/2024 Progress Notes Patient: Micah Valdez Provider: NATHANIEL Novoa :2000 A ge:23 Y S ex:Male Date:02/01/2024 Address:[address], [facility] Pcp:Eric Dominguez Subjective: * Chief Complaints: * E stablish care-needs to see medicaid also * Electronic signature of NATHANIEL Kiran on 06/11/2025 at 07:41 AM CDT Sign off status: Pending * Provider: NATHANIEL Novoa Date: 02/01/2024 Generated for Printi ng/Faxing/eTransmitting on: 0 06/11/2025 07:41 AM CDT
--- OUTSIDE RECORDS SUMMARY | 2024-02-01 06:20 | XMS_ITS ---
Author Organization [facility] Address [address] [place] [address] Care Team Providers Care Registered Dietetic Technician Name Role Phone Eric Dominguez Primary Care Provider Brian Villalba [phone] REASON FOR VISIT establish care-needs to see medicaid also Social History Sex Assigned At : Social History Observation Description Sex Assigned At Male Encounters Encounter Location Date Provider Diagnosis 18th [facility] [address] [place] [address] 02/01/2024 Brian Villalba Plan Of Treatment No Information Progress Notes * Curt ALVARADOonDOB: 0 (24 yo M)Acc No.[id number]:02/01/2024 Progress Notes Patient: Micah Valdez Provider: NATHANIEL Novoa :2000 A ge:23 Y S ex:Male Date:02/01/2024 Address:[address], [facility] Pcp:Eric Dominguez Subjective: * Chief Complaints: * E stablish care-needs to see medicaid also * Electronic signature of NATHANIEL Kiran on 06/10/2025 at 09:39 AM CDT Sign off status: Pending * Provider: NATHANIEL Novoa Date: 02/01/2024 Generated for Printi ng/Faxing/eTransmitting on: 0 06/10/2025 09:39 AM CDT
--- OUTSIDE RECORDS SUMMARY | 2024-02-21 03:00 | XMS_ITS ---
Author Organization [facility] Address [address] [place] [address] [address] Care Team Providers Care Upper Inspector Name Role Phone AlbertoEric Primary Care Provider REASON FOR VISIT establish care-needs to see medicaid also Social History Sex Assigned At : Social History Observation Description Sex Assigned At Male Encounters Encounter Location Date Provider Diagnosis 18 [facility] [address] [place] [address] 02/21/2024 Eric Dominguez Plan Of Treatment No Information Progress Notes * Ignacio ALVARADOmamtaonDOB: 0 (24 yo M)Acc No.[id number]:02/21/2024 Progress Notes Patient: Micah Valdez Provider: Nat Dominguez MD :2000 A ge:23 Y S ex:Male Date:02/21/2024 [facility] [facility] * Electronic signature of Salvatore Dominguez MD on 06/11/2025 at 07:41 AM CDT Sign off status: Pending * Provider: Nat Dominguez MD Date: 02/21/2024 Generated for Printi ng/Faaveryg/eTransmitting on: 0 06/11/2025 07:41 AM CDT
--- OUTSIDE RECORDS SUMMARY | 2024-02-21 03:00 | XMS_ITS ---
Author Organization [facility] Address [address] [place] [address] [address] Care Team Providers Care Otolaryngology Rep Name Role Phone AlbertoEric Primary Care Provider REASON FOR VISIT establish care-needs to see medicaid also Social History Sex Assigned At : Social History Observation Description Sex Assigned At Male Encounters Encounter Location Date Provider Diagnosis 18 [facility] [address] [place] [address] 02/21/2024 Eric Dominguez Plan Of Treatment No Information Progress Notes * Curt ALVARADOonDOB: 0 (24 yo M)Acc No.[id number]:02/21/2024 Progress Notes Patient: Micah Valdez Provider: Nat Dominguez MD :2000 A ge:23 Y S ex:Male Date:02/21/2024 [facility] [facility] * Electronic signature of Salvatore Dominguez MD on 06/10/2025 at 09:39 AM CDT Sign off status: Pending * Provider: Nat Dominguez MD Date: 02/21/2024 Generated for Printi ng/Faaveryg/eTransmitting on: 0 06/10/2025 09:39 AM CDT
[2025-06-10 09:31] VITALS: BP 132/89; PULSE 79; RESP 16; TEMP 36.2; O2SAT 99; BMI 30.7
--- OUTSIDE RECORDS SUMMARY | 2025-06-10 09:39 | XMS_ITS | Patient Health Record ---
Author Organization [facility] Address [address] [place] [address] Care Team Providers Care Machine Brusher Name Role Phone Eric Dominguez Primary Care Provider [phone] Allergies No Known Allergies Reason For Referral No Information Medications Medication SIG (Take, Route, Frequency, Duration) Notes Start Date End Date Status cloNIDine HCl 0.1 MG Tablet 1 tablet Orally Once a day; Duration: 30 days please deliver to [place] Active Abilify 5 MG Tablet 1 tablet Orally Once a day; Duration: 30 days please deliver to [place] Active hydrOXYzine HCl 25 MG Tablet 1 or 2 tablets Orally every 8 hrs; Duration: 30 days as need for anxiety [facility] Active traZODone HCl 50 MG Tablet 1 or 2 tablet at bedtime as needed Orally Once a day; Duration: 30 days please deliver to [place] Active Vyvanse 40 MG Capsule 1 capsule [...] Status W/U Status Risk Notes Problem Smoking (67505127) Smoking (F17.200) Active confirmed Problem Substance abuse (0058038809) Substance abuse (F19.10) Active confirmed Problem Generalized anxiety disorder (73178517) Anxiety, generalized (F41.1) Active confirmed Problem Attention deficit hyperactivity disorder (381747912) ADHD (F90.9) Active confirmed Plan Of Treatment No Information Insurance Providers Payer Name Payer Address Payer Phone Subscriber Number Group Number Insured Name Patient Relationship to Insured Coverage Start Date Coverage End Date PE for Adults [id number] 20 18-02-31 Micah Aguilar Self - patient is the insured Medical (General) History Medical History History ICD Code Substance abuse F19.10 ADHD F90.9
--- NOTE | 2025-06-10 09:48 | ED.C_ITS ---
HPI - Psych 2 General: Chief Complaint: Psychiatric Symptoms Stated Complaint: mhe Time Seen by Provider: 06/10/25 09:31 History of Present Illness: 24-year-old male presents to the emergen cy room with complaints of suicidal ideation. He states he wants to put himself on 96-hour hold. He was just discharged about a week and a half ago [facility]. Patient reports he left [facility] was able to get a hold of some methamphetamines and went on a meth binge. He states the last use he thinks 24 to 48 hours ago. He describes himself as having had a bad trip so he took 200 to 300 mg of trazodone with an intent of leveling out from his methamphetamine as opposed to harming himself. States he is having suicidal thoughts he was planning on overdose but states he cannot get out of methamphetamine to overdose himself. Related Data Previous Rx's ?Medication ?Instructions ?Recorded atomoxetine 40 mg capsule 80 mg (2 x 40 mg) PO DAILY 7 days 05/27/25 #14 caps escitalopram oxalate 10 mg tablet 20 mg (2 x 10 mg) PO DAILY 7 days 05/27/25 #14 tabs folic acid 1 mg tablet 1 mg PO DAILY 7 days #7 tabs 05/27/25 paliperidone 6 mg tablet,extended 6 mg PO DAILY 7 days #7 tabs 05/27/25 release 24 hr thiamine mononitrate (vit B1) 100 100 mg PO DAILY 7 da ys #7 tabs 05/27/25 mg tablet (Vitamin B-1 (mononitrate)) trazodone 50 mg tablet 50 mg PO BEDTIME 7 days #7 t abs 05/27/25 Allergies Allergy/AdvReac Type Severity Reaction Status Date / Time No Known Allergies Allergy Verified 03/21/25 13:45 Review of Systems 2 Const: Denies: fever(s) or chills Card: Denies: chest pain Resp: Denies: dyspnea GI: Denies: abdominal pain : Denies: dysuria, urinary frequency or urinary urgency Musc: Denies: neck pain or back pain Skin/Breast: Denies: rash PFSH ED 2 PFSH: Medical History Psychiatric care History of drug abuse Panic attacks Anxiety and depression Surgical History History of surgery on arm left Social History Smoking and tobacco/nicotine status: current every day tobacco/nicotine user Alcohol intake: former Substance/Drug Use: former Physical Exam 2 Const: COMMON NORMALS: no acute distress GENERAL APPEARANCE: cooperative and comfortable ORIENTATION/CONSCIOUSNESS: Yes awake, Yes oriented to person, Yes oriented to place and Yes oriented to time HENMT: COMMON NORMALS: normocephalic, atraumatic and hearing grossly normal bilaterally HEAD & SCALP: normocephalic and atraumatic Resp: COMMON NORMALS: normal respiratory effort, No retractions, No use of accessory muscles and clear to auscultation bilaterally AUSCULTATION: clear to auscultation bilaterally Cardio: COMMON NORMALS: regular rate, regular rhythm and No murmurs present (Cardio) RATE: regular rate RHYTHM: regular rhythm GI: COMMON NORMALS: Soft to palpation and No hepatosplenomegaly present A USCULTATION: Yes normoactive bowel sounds PALPATION: Yes Soft to palpation, No Tenderness to palpation present (GI), No Guarding due to palpation present (GI) and Yes No hepatosplenomegaly present Extremity: COMMON NORMALS: normal to inspection, capillary refill normal, no clubbing, cyanosis or edema, no calf tenderness and no pedal edema Neuro: SENSORIUM/ORIENTATION: Yes oriented to person, Yes oriented to place and Yes oriented to time Skin: COMMON NORMALS: no rashes or lesions noted GENERAL SKIN EXAM: no rashes or lesions noted Course 2 Vital Signs: Vital signs: Vital Signs Temperature 97.2 F L 06/10/25 09:31 Pulse Rate 79 06/10/25 09:31 Respiratory Rate 16 06/10/25 09:31 Blood Pressure 132/89 06/10/25 09:31 Pulse Oximetry 99 06/10/25 09:31 Oxygen Delivery Me thod Room Air 06/10/25 09:31 MDM - Psych Medical Decision Making Patient was just recently discharged from [facility] to [facility] and left and was using again. I discussed this case with Dr. Rousseau patient is agreeable to being admitted and is actually requesting. Dr. Rousseau came to see the patient in department agrees to admission orders written. Patient admits to suicidal ideation has a vague plan of overdosing but admits he cannot accomplish it because he cannot get enough drugs to do so. Medical Records I reviewed the patient's medical records. Lab Data I reviewed the patient's lab results. 06/10/25 09:42 06/10/25 09:42 Laboratory Results WBC 7.67 10^3/uL (3.29-11.43) 06/10/25 09:42 RBC 4.98 10^6/uL (3.85-5.65) 06/10/25 09:42 Hgb 14.40 g/dL (11.27-16.99) 06/10/25 09:42 Hct 41.9 % (37-53) 06/10/25 09:42 MCV 84.1 fl (82-101) 06/10/25 09:42 MCH 28.9 pg (27-33) 06/10/25 09:42 MCHC 34.4 g/dL (30-55) 06/10/25 09:42 RDW 13.2 % (12.1-15.1) 06/10/25 09:42 Plt Count 263 10^3/cmm (157-399) 06/10/25 09:42 MPV 9.7 fL (7.4-10.4) 06/10/25 09:42 Neut % (Auto) 61.8 % 06/10/25 09:42 Lymph % (Auto) 26.5 % 06/10/25 09:42 [place] % (Auto) 9.5 % 06/10/25 09:42 Eos % (Auto) 1.2 % 06/10/25 09:42 Baso % (Auto) 0.7 % 06/10/25 09:42 Neut # (Auto) 4.75 10^3/uL (1.8-7.7) 06/10/25 09:42 Lymph # (Auto) 2.0 10^3/uL (0.8-4.8) 06/10/25 09:42 [place] # (Auto) 0.7 10^3/uL (0.2-0.9) 06/10/25 09:42 Eos # (Auto) 0.1 10^3/uL (0.0-0.8) 06/10/25 09:42 Baso # (Auto) 0.1 10^3/uL (0.0-0.1) 06/10/25 09:42 Nucleated RBC % (auto) 0 % 06/10/25 09:42 Nucleated RBCs # 0.0 /100WBC 06/10/25 09:42 Sodium 138 mmol/L (136-145) 06/10/25 09:42 Potassium 3.7 mmol/L (3.5-5.1) 06/10/25 09:42 Chloride 102 mmol/L (98-107) 06/10/25 09:42 Carbon Dioxide 23 mmol/L (22-29) 06/10/25 09:42 Anion Gap 16.7 (5-19) 06/10/25 09:42 BUN 15 mg/dL (6-20) 06/10/25 09:42 Creatinine 0.8 mg/dL (0.7-1.2) 06/10/25 09:42 GFR Calculation 118.8 mL/min (90-130) 06/10/25 09:42 Glucose 84 mg/dL (65-115) 06/10/25 09:42 Calculated Osmolality 286 mOsm/kg (285-295) 06/10/25 09:42 Calcium 9.2 mg/dL (8.5-10.5) 06/10/25 09:42 Total Bilirubin 1.0 mg/dL (0.15-1.2) 06/10/25 09:42 AST 24 U/L (0-40) 06/10/25 09:42 ALT 18 U/L (0-41) 06/10/25 09:42 Alkaline Phosphatase 93 U/L (40-130) 06/10/25 09:42 Total Protein 7.0 g/dL (6.6-8.7) 06/10/25 09:42 Albumin 4.5 g/dL (3.5-5.2) 06/10/25 09:42 Globulin 2.5 g/dL (1.3-4.6) 06/10/25 09:42 Salicylates < 0.3 mg/dL (3-10) L 06/10/25 09:42 Urine Opiates Screen Negative ng/mL (Negative) 06/10/25 13:23 Acetaminophen < 5.0 ug/mL (10-30) L 06/10/25 09:42 Ur Barbiturates Screen Negative ng/mL (Negative) 06/10/25 13:23 Ur Phencyclidine Scrn Negative ng/mL (Negative) 06/10/25 13:23 Ur Amphetamines Screen Positive ng/mL (Negative) H 06/10/25 13:23 U Benzodiazepines Scrn Negative ng/mL (Negative) 06/10/25 13:23 Urine Cocaine Screen Negative ng/mL (Negative) 06/10/25 13:23 U Marijuana (THC) Screen Positive ng/mL (Negative) H 06/10/25 13:23 Ethyl Alcohol < 10 mg/dL (0-10) 06/10/25 09:42 No radiology studies performed this visit Discharge Plan Discharge Patient Disposition: Admitted As Inpatient Clinical Impression: Suicidal ideation, Depression, Methamphetamine abuse Condition: Stable Coding Level of Care Code ED [employer] Industrial Arts Teacher for Dennise Barnard
[2025-06-10 09:50] LABS: Hematocrit 41.9 % (37-53); Hemoglobin 14.40 g/dL (11.27-16.99); Mean Corpuscular HGB Conc 34.4 g/dL (30-55); Mean Corpuscular Hemoglobin 28.9 pg (27-33); Mean Corpuscular Volume 84.1 fl (82-101); Nucleated Red Blood Cells % 0 %; Platelet Count 263 10^3/cmm (157-399); Red Blood Count 4.98 10^6/uL (3.85-5.65); White Blood Count 7.67 10^3/uL (3.29-11.43)
[2025-06-10 10:06] LABS: Alanine Aminotransferase 18 U/L (0-41); Albumin Level 4.5 g/dL (3.5-5.2); Alkaline Phosphatase 93 U/L (40-130); Anion Gap 16.7 (5-19); Aspartate Amino Transferase 24 U/L (0-40); Blood Urea Nitrogen 15 mg/dL (6-20); Calcium 9.2 mg/dL (8.5-10.5); Carbon Dioxide 23 mmol/L (22-29); Chloride 102 mmol/L (98-107); Creatinine Clr Calc Pharmacy 171.3739; Globulin 2.5 g/dL (1.3-4.6); Glucose 84 mg/dL (65-115); Osmolality Calculated 286 mOsm/kg (285-295); Potassium 3.7 mmol/L (3.5-5.1); Sodium 138 mmol/L (136-145); Total Protein 7.0 g/dL (6.6-8.7)
[2025-06-10 10:23] LABS: Acetaminophen < 5.0 ug/mL (10-30); Alcohol Level < 10 mg/dL (0-10); Salicylate < 0.3 mg/dL (3-10)
[2025-06-10 13:50] LABS: PCP Screen Urine Negative (Negative)
[2025-06-10 15:44] VITALS: BP 128/78; PULSE 86; RESP 17; TEMP 36.4; O2SAT 98
[2025-06-10 15:45] VITALS: BP 131/88; PULSE 72; O2SAT 99
[2025-06-10 16:15] VITALS: BMI 30.4
--- NOTE | 2025-06-10 16:26 | PC.NURSE ---
Shower Patient is in shower at this time.
[2025-06-10 19:53] VITALS: BP 118/66; PULSE 86; RESP 16; TEMP 36.8; O2SAT 98
[2025-06-11 06:00] VITALS: BP 100/55; PULSE 65; RESP 16; TEMP 36.8; O2SAT 98
--- OUTSIDE RECORDS SUMMARY | 2025-06-11 07:42 | XMS_ITS | Patient Health Record ---
Author Organization [facility] Address [address] [place] [address] Care Team Providers Care Senior Materials Planner Name Role Phone Eric Dominguez Primary Care Provider Allergies No Known Allergies Reason For Referral No Information Medications Medication SIG (Take, Route, Frequency, Duration) Notes Start Date End Date Status cloNIDine HCl 0.1 MG Tablet 1 tablet Orally Once a day; Duration: 30 days please deliver to [place] Active Abilify 5 MG Tablet 1 tablet Orally Once a day; Duration: 30 days please deliver to [place] Active hydrOXYzine HCl 25 MG Tablet 1 or 2 tablets Orally every 8 hrs; Duration: 30 days as need for anxiety please deliver to [facility] Active traZODone HCl 50 MG Tablet 1 or 2 tablet at bedtime as needed Orally Once a day; Duration: 30 days please deliver to [place] Active Vyvanse 40 MG Capsule 1 capsule [...] Status W/U Status Risk Notes Problem Smoking (33810944) Smoking (F17.200) Active confirmed Problem Substance abuse (4012853565) Substance abuse (F19.10) Active confirmed Problem Generalized anxiety disorder (18364409) Anxiety, generalized (F41.1) Active confirmed Problem Attention deficit hyperactivity disorder (965725533) ADHD (F90.9) Active confirmed Plan Of Treatment No Information Insurance Providers Payer Name Payer Address Payer Phone Subscriber Number Group Number Insured Name Patient Relationship to Insured Coverage Start Date Coverage End Date PE for Adults [id number] 18-02-31 Micah Aguilar Self - patient is the insured Medical (General) History Medical History History ICD Code Substance abuse F19.10 ADHD F90.9
--- NOTE | 2025-06-11 09:21 | W.PM.NPUH&PS ---
Providers/Chief Complaint Admitting Physician: Davin Rousseau MD Primary Care Provider: Des Flores Chief Complaint: mhe HPI NPU History of Present Illness Micah Aguilar is a 24 year old male who presented to the emergency department with the following report: Chief Complaint: Psychiatric Symptoms Stated Complaint: mhe Time Seen by Provider: 06/10/25 09:31 History of Present Illness: 24-year-old male presents to the emergency room with complaints of suicidal ideation. He states he wants to put himself on 96-hour hold. He was just discharged about a week and a half ago to [facility]. Patient reports he left [facility] was able to get a hold of some methamphetamines and went on a meth binge. He states the last use he thinks 24 to 48 hours ago. He describes himself as having had a bad trip so he took 200 to 300 mg of trazodone with an intent of leveling out from his methamphetamine as opposed to harming himself. States he is having suicidal thoughts he was planning on overdose but states he cannot get out of methamphetamine to overdose himself. He was admitted to the neuropsychiatric unit for definitive treatment of those issues. He is known to [facility] psychiatry through inpatient and outpatient services. He was here approximately 2 weeks ago in April and discharged directly to [facility] which she left the next day and has been in the throes of active addiction. An excerpt of his discharge summary from April is included below for context and the fact that there have been no substantive changes. He reports that he made bad choices and was unable to stay at [facility]. After struggling after that he reports today convinced that he can gain his sobriety back and is desirous to go to a inpatient facility but this time challenge himself to stay. He was open to us restarting all of his medications and he denied any other pressing issues other than feeling like he wants to if he cannot figure this out. Per his 05/27/2025 [facility] inpatient psychiatric discharge summary: Discharge Diagnosis (1) Depression: Status: Inactive (2) ADD (attention deficit disorder): Status: Acute (3) Explosive personality disorder: Status: Acute (4) Bipolar 1 disorder: Status: Acute (5) History of drug abuse: Status: Acute (6) Cannabis use disorder, severe, dependence: Status: Acute Reason for Visit Reason for Visit: ETOH - SI Brief History: History of Present Illness Micah Aguilar is a 24 year old male who presented to the emergency department with the following report: Chief Complaint: Psychiatric Symptoms Stated Complaint: ETOH - SI Time Seen by Provider: 05/23/25 10:34 History of Present Illness: 24 male presenting to the ED requesting medication management after relapse on methamphetamine and alcohol. Patient reports he was previously seen in this ED and was prescribed psychiatric medications that were helpful, but states he ran out approximately one month ago when no one facilitated his follow-up appointment with psychiatry. After discontinuing medications, patient reports he went crazy a little bit and relapsed on methamphetamine and alcohol. Patient reports his blood alcohol content was 1.2 this morning per an outside facility ( [facility] ). He reports drinking a lot last night and a pint this morning. Patient discloses passive suicidal ideation with statements like I don't give a fuck if I and if I , cool, that saves me a lot of trouble. He denies active suicidal intent but mentions past fentanyl use was motivated by wanting to . Patient also expresses homicidal ideation toward someone who owes him money, stating he was tempted to stop by his house and beat the shit out of him. Patient reports he has arrangements to enter rehab on Tuesday. He was admitted to the neuropsychiatric unit for definitive treatment of those issues. He is known to [facility] psychiatry primarily through inpatient services this being the third hospitalization since the end of January. An excerpt of his last discharge summary is included below for context and the fact that there have been no substantive changes. He presents today having presented to the emergency department with with a UDS positive for cannabis and a BAL of 124. He presents reporting he is doing fine but had had a relapse. He reports that he ran into some people in the park when he had left his sober living facility and that started a courtney that was related to methamphetamine. He reports he got really psychotic and kind of lost time. He clearly had lost time as he is under the impression that he was last here 6 to 10 months ago and that he had put together 6 months of sobriety when in fact he was here a little over 2 months ago which was preceded by a hospitalization before that by about a week. Making this his third hospitalization in a few months. He reports that he is open to continuing his medication and we discussed the risk benefits and alternatives of increasing his Invega and he understood and agreed to proceed as is documented in this note. We discussed the importance of him avoiding substances like cannabis, like methamphetamine that are contributing to psychosis. He reports that he has a bed available to return to at [facility]. This appears to have been confirmed and we just discussed that we would need to make sure that he is in the right state of mind to return at discharge. Per his 03/06/2025 [facility] inpatient psychiatric discharge summary: Discharge Diagnosis (1) Impulse control disorder, unspecified: Status: Acute (2) ADD (attention deficit disorder): Status: Acute (3) Explosive personality disorder: Status: Acute (4) Bipolar 1 disorder: Status: Acute (5) History of drug abuse: Status: Acute (6) Cannabis use disorder, severe, dependence: Status: Acute Reason for Visit Reason for Visit: MHE Brief History: History of Present Illness Micah Aguilar is a 24 year old male who presented to the emergency department with complaints of having suicidal ideation. The patient had reported to the emergency room staff that he was having thoughts that he may harm himself and reported that he had consumed alcohol the night before. The patient had no blood alcohol level. He had reported that he had been using marijuana as well. The patient stated that he had been discharged to [facility] as a potential placement for him to have usp after he had been homeless for an unspecified amount of time. He had just been discharged less than a week ago from the neuropsychiatric unit. The patient reports that he is currently not suicidal. He had stated that he would like to eventually return to work but stated that he had a friend who was staying at another [facility] and he would like to consider this as an option for him. He had reported no substantiative changes since his last hospitalization 1 week ago. Patient was an unreliable historian. Current medictions: Strattera 40mg at night, lexapro 10mg daily, paliperidone 3mg daily, hydroxyzine 50mg bid, trazodone 50mg at night Urine drug screen was positive for THC. Excerpt from NPU Discharge Summary from 02/27/25 Discharge Diagnosis (1) ADD (attention deficit disorder): Status: Acute (2) Explosive personality disorder: Status: Acute (3) Bipolar 1 disorder: Status: Acute (4) History of drug abuse: Status: Acute (5) Cannabis use disorder, severe, dependence: Status: Acute Reason for Visit Brief History: History of Present Illness Micah Aguilar is a 24 year old male who presented to the emergency department with the following report: Chief Complaint: Altered Mental Status Stated Complaint: ams Time Seen by Provider: 02/22/25 09:05 Source: patient Mode of arrival: wheelchair Limitations: altered mental status History of Present Illness: Patient is a 24-year-old male presents to ED today from [facility]. He apparently showed up there this morning and had mildly slurred speech which continued to worsen thus prompting them to send him to the emergency department for evaluation. Patient tells me he took 800 mg of THC gummies this morning and drank some alcohol. Patient does not give me an intent when I ask. He can answer a few questions upon arrival but is significantly altered. Vitals are stable upon arrival. MD complaint: altered mental status Onset (ago): hour(s) Timing confirmed by: caregiver Severity: severe Consistency of symptoms: Getting Worse Context: alcohol abuse and drug abuse Associated symptoms: Reports no associated symptoms. He was admitted to the ICU for definitive treatment of those issues. A request was made after he was medically cleared for him to be transferred to the neuropsychiatric unit secondary to him being on a 96-hour hold. He was transferred to the neuropsychiatric unit and presents today reporting that he has been in a sober living facility called [facility]. He had gotten in there because he went to the crisis stabilization center and identified to them that he was having some difficulties with addiction and that he wanted and needed a place to go. They assisted [facility] in finding [facility] and has been in there for couple months he reports he denies any lethality but reports that last night or the night before when he came to the hospital that he had gotten high intake and a significant amount of Gummies to get high and that he did not think he would get that discombobulated so he returned to [facility] and they have a role that she can be high on the campus so they brought him here to the hospital. He had significant issues with altered mental status which led to him being taken to the ICU for further evaluation. He was eventually medically cleared and transferred to the unit yesterday. He reports that they also felt he needed to get back on his medication which he has been off for couple months but reports it was just that he has been so busy with work and everything. We reviewed his behavioral assessment and he identified this to be an accurate representation of what is going on currently. He was very focused on wanting to be discharged sooner rather than later. He denied any problems at this time and says that he would just like to make sure he is at work 02/25/2025. We discussed the risks, benefits and alternatives of restarting his medications and he understood and agreed to proceed as is documented in this note. Per his 01/14/2025 [facility] [place] behavioral assessment: Admission Information Reason for Admission: Seeking assistance with obtaining a referral to substance use recovery facility. Chief Complaint: I am concerned about relapsing on alcohol/drugs . Current Presentation: Client appears well groomed & appropriately dressed for the weather. posture is rigid with client making appropriate levels of eye contact. Client was generally cooperative, appearing motivated to rejoin a post based recovery facility. Client's mood is anxious, with client frequently pacing the room and appearing fidgety throughout encounter. Speech is appropriate. Thought process is linear. Average insight/judgement. Client demonstrates awareness of potential triggers leading to relapse, although he appears motivation to restart on the path to sobriety, appearing in the planning stage of change. History Past Diagnosis and Psychiatric History: Self-reports Bipolar I Disorder. History Detail: Client endorses a history of substance use beginning at a very young age. Client reports multiple forms of substance use including fentanyl, methamphetamine, and other substances. He reports this led to poor behaviors and choices, noting it contributed to the decline in familial relationships and potential legal troubles. Client referenced stealing from his grandma, although he notes his grandmother has since forgiven him. Current Social/Environmental Situation Current Living Environment/Relationships: Currently unhoused. Client reports being admitted to [facility], a post based recovery facility until yesterday. Client states he had been caught with a bottle of alcohol which led to his subsequent removal from the program. While client does have familial support in the form of his Aunt, he is unable to reside with her due to strenuous relations with his Uncle. Client is currently unhoused and fears relapse of drugs if he is unable to be readmitted into another reover center. Do you have any relationships that are supportive of your recovery? (e.g., family, friends): Yes (Grandma, Aunt) What is your current living situation? (e.g., homeless, living with family): Yes (Currently unhoused, was engaged in services at [facility].) Do you currently live where others drink alcohol and/or use: No Are you currently involved in relationships or situations that pose a threat to your safety?: No Are you currently involved in relationships or situations that could negatively affect your recovery?: No Have you ever had hobbies? How do you spend free time? (e.g., interests; activities; recreation)?: Yes (Videogames, building PCs) Employment/Support Status Education Completed: Some college, was attending [employer]. Training or technical education completed:: Desires to go to school for coding Do you have a profession, trade, or skill?: No Do you have a valid drop hammer pile driver operator?s license?: No (No, stolen) Do you have an automobile available for use?: No How long was your longest full-time job?: [employer] 2 years Usual (or last) occupation? (specify): Last job was [employer] in [place]. Does someone contribute to your support in any way? Is patient receiving any regular support (i.e., gee, food, housing) from family/friend? Include spouse?s contribution; exclude support by an institution: Yes (Aunt) Usual employment pattern, past 3 years? Employment/Support Comments: Client would like to address substance use concerns first. How much money did you receive from the following sources in the past 30 days? Use Patient Rating Scale Use Interviewer Severity Rating Employment/Support Comments: Client does seek employment, noting it helps him stay focused and maintain sobriety. Client identifities a contributing facotr towards his relapse included being told he would be unable to work [facility]. Substance Use History Are you currently experiencing withdrawal symptoms such as tremors, excessive sweating, rapid heart rate, blackouts, anxiety, vomiting. etc.?: No Do you get physically ill when you stop using alcohol/or drugs?: Yes (Slept for a week straight, depressive systems, ) Do you have a history of serious withdrawal, seizures, or life-threatening symptoms during withdrawal?: Yes Do you find yourself using more alcohol and/or other drugs than you intend to?: Yes (Relapsed on alcohol due to environmental stressors/familial stressors.) Alcohol or Other Drug Used past 6 months Prior use? (life time) Route of Use Frequency(past 6 months) Duration (of use) Date of last use Alcohol yes yes drink 1/5 per day 01/13/25 Amphetamines (meth , ice, crank) yes started at age 13 th intraveneous eightball a day 07/29/24 Cocaine Heroin Opioid /Opiates (m isuse or w/out pre scription) no last year smoking frequent 12/29/22 Marijuana (cbd, da bs) yes yes daily 07/29/24 Sedatives (Benzo, sleep meds) (misus e or w/out prescri ption) Hallucinogens Inhalants Over the Counter ( Cough syrup, Diet) Nicotine (cigarett es, chew, vape) yes started at 18 pack a day today Other Relapse, Cont. Use Are you aware of your triggers to use alcohol and/or drugs: Yes (Anxiety, familial/social stressors, depression. Has desire to feel good.) Please check of any of the following which you know are triggers for you:: Strong Cravings, Difficulty with feelings, Relationship problems and Environment Please Describe: Gets social anxiety and leans on alcohol as a coping mechanisms. What do you typically do if you are triggered: I start to feel corned and have to urge to run away. Have you ever tried to control your use, stop or cut down : Yes What does that look like: Was engaged in in-patient recovery services, was discharged from [facility] for breaking policy due to relapse on alcohol. 7.What is the longest period of time that you have gone without using alcohol and/or other drugs: Explain: 5 months.What helps you to not use drugs/alcohol, what doesn't help Explain: What Helps: Working, staying busy, not having to opportunity to use, keeping accountability. What doesnt help: being around it, difficulty with feelings, access to substances Readiness to Change Is your alcohol and/or other drug use affecting any of the following?: Work, Relationships, Mental Health and Physical Health Do you continue to use alcohol and/or other drugs despite having it affect you?: Yes How important is it for you to receive treatment for:: Alcohol: Extremely and Drugs: Extremely Is anyone making you seek treatment or asking you to be in recovery?: No Assessment Summary Strengths, Current Resources, Barriers to Treatment: Strengths: Love/motivation stemming from family support, Feels obligated to family, little sister, and his aunt. Current Resources: Aunt, little sister. Barriers to Treatment: Unhoused, financial instability, lack of community resources, lack of transportation. Assessment Summary Dialogue: Micah is a 24 year old male whom presents to the Crisis Center requesting assistance locating a post-based recovery facility. Client endorses a history of substance use, noting he had maintained sobriety for approximately 5 months. Micah notes having been a resident of [facility] recovery facility, which he identifies as being the primary motivating factor of his stint of sobriety. Client notes he had initially utilized the recovery facility after being hospitalized as a result of his past substance use. Client endorses severe symptoms of withdrawal during his hospitalization stay. Client does report being diagnosed as Bipolar one upon discharge from his hospitalization. While client was discahrge from the recovery fcility due to relapse on alcohol, client expresses a desire to reachieve sobriety by being readmitted into a [facility] based facility. Identified Treatment Goals Identified Treatment Goal(s): Substance use services Hospital Course Hospital Course He slowly acclimated to the individual, group and milieu therapies. He presented after an overdose that he reported was just trying to get high after he was in a less altered mental status. He had a history of mental health treatment and have been off of his medications. Strattera 40 mg p.o. daily, Lexapro 10 mg p.o. every morning and Invega which were all past medications were restarted prior to discharge. He had been on the long-acting Abilify preparation. But we started back with the oral. He also got Vistaril for anxiety. He had no difficulty with the medications. That, abstinence from substances as well as the treatment milieu had a positive response. He worked with the social work team to establish appropriate follow-up services and was connected to appropriate community resources. He returned to the program [facility] that he had been staying at prior to admission. He was able to contract for safety outside of the hospital prior to discharge. During the hospitalization, patient had routine laboratory studies which were within normal limits except for few outliers. Additionally there was a general medical evaluation which was also within normal limits and revealed no new acute processes. At the time of discharge, he denied psychosis or lethality. Mood and anxiety were well managed. Patient endorsed a plan to avoid all drugs of abuse, and agreed to follow-up with the aftercare recommendations of the treatment team. Patient was evaluated and deemed to be absent credible lethality, and achieved maximum benefit from inpatient hospitalization, so he was discharged. Hospital Course During the hospitalization, the patient had routine laboratory studies which were within normal limits except for a few outliers. Additionally, there was a general medical evaluation which was also within normal limits and revealed no new acute processes. At the time of discharge, lethality was denied and patient continued to report chronic problems with attention and concentration. Strattera was increased to 40mg twice a day prior to discharge. He had accepted desire to go to [facility] for further extended stay to maintain sobriety and avoid homelessness. Mood and anxiety were well managed. The patient endorsed a plan to avoid all drugs of abuse and follow up with the aftercare recommendations of the treatment team. The patient was evaluated and deemed to be absent credible lethality and had achieved the maximum benefit from an inpatient hospitalization, and so was discharged. Hospital Course He had reported that he had been noncompliant with his medications prior to admission. He was restarted on his outpatient medications including Lexapro, Strattera, Invega, and trazodone. Lexapro was increased to 20 mg daily. Strattera was increased to 80 mg daily to target ADHD symptoms. BuSpar was discontinued. Invega remained at 6 mg daily and trazodone was restarted at 50 mg at night. During the hospitalization, the patient had routine laboratory studies which were within normal limits except for a few outliers. Additionally, there was a general medical evaluation which was also within normal limits and revealed no new acute processes. At the time of discharge, lethality was denied and psychosis was resolving. Mood and anxiety were well managed. The patient endorsed a plan to avoid all drugs of abuse and follow up with the aftercare recommendations of the treatment team. The patient was evaluated and deemed to be absent credible lethality and had achieved the maximum benefit from an inpatient hospitalization, and so was discharged. He had expressed desire to consider inpatient substance abuse treatment and was sent [facility] for further substance abuse treatment. Meds NPU Home Medications ?Medication ?Instructions ?Recorded ?Confirmed ?Last Taken ?Type atomoxetine 40 mg capsule 80 mg (2 x 40 mg) PO DAILY 7 days 05/27/25 06/10/25 Unknown Rx #14 caps escitalopram oxalate 10 mg tablet 20 mg (2 x 10 mg) PO DAILY 7 days 05/27/25 06/10/25 Unknown Rx #14 tabs folic acid 1 mg tablet 1 mg PO DAILY 7 days #7 tabs 05/27/25 06/10/25 Unknown Rx paliperidone 6 mg tablet,extended 6 mg PO DAILY 7 days #7 tabs 05/27/25 06/10/25 Unknown Rx release 24 hr thiamine mononitrate (vit B1) 100 100 mg PO DAILY 7 days #7 tabs 05/27/25 06/10/25 Unknown Rx mg tablet (Vitamin B-1 (mononitrate)) trazodone 50 mg tablet 50 mg PO BEDTIME 7 days #7 tabs 05/27/25 06/10/25 Unknown Rx Allergies Allergy/AdvReac Type Severity Reaction Status Date / Time No Known Allergies Allergy Verified 03/21/25 13:45 PFS NPU PFSH: Medical History (Updated 06/11/25 @ 13:25 by Davin Rousseau MD) Psychiatric care History of drug abuse Panic attacks Anxiety and depression Surgical History History of surgery on arm left Social History Smoking and tobacco/nicotine status: current every day tobacco/nicotine user Alcohol intake: former Substance/Drug Use: former Mental Status Exam MSE Comments: This is an overweight versus obese white male in hospital scrubs with adequate grooming and eye contact. No abnormal movements except for psychomotor retardation. Cooperative with exam in mild to moderate distress. Speech was decreased rate and volume. Mood described as I keep messing up, affect congruent, slightly confused and subdued. Thought process linear. Thought content: Patient endorsed some suicidal ideation but denied homicidal ideation, there were no delusions reported or noted, he denied current auditory or visual hallucinations. Attention and concentration were intact And memory was mostly reliable but no more formally tested. He is alert and oriented times 3. Insight, judgment and impulse control were limited versus impaired. Vitals/I&O/Wt Last Vital Signs Temp 98.3 F 06/11/25 06:00 Pulse 65 06/11/25 06:00 Resp 16 06/11/25 06:00 BP 100/55 06/11/25 06:00 Pulse Ox 98 06/11/25 06:00 O2 Del Method Room Air 06/11/25 06:00 Weight last 48 hrs Weight 98.883 kg Weight 99.79 kg Data NPU 06/10/25 09:42 06/10/25 09:42 A&P Assessment and plan 1. ADD (attention deficit disorder): 2. Explosive personality disorder: 3. Bipolar 1 disorder: 4. History of drug abuse: 5. Cannabis use disorder, severe, dependence: 6. Methamphetamine dependence: Plan: This is a 24-year-old white male with a significant history of mental health and addiction issues with multiple recent hospitalizations and recent stent and a local sober living facility this lasted approximately 1 day. He acknowledges his difficulty with sobriety but endorses he is ready to try again. He presents positive for amphetamines and cannabis. 1. Restart his medications. 2. Continue every 15 minute checks for safety. 3. Encourage individual, group and milieu therapies. 4. Encourage sober living treatment after discharge at the highest level of care to which he is willing to commit. 5. Get collateral information especially finding out where he has his outpatient services. 6. Evaluate against the backdrop of the 96-hour hold. PDMP PDMP Reviewed: Not Reviewed Attestations NPU Medical Necessity Statement*: Inpatient hospitalization is medically necessary and the clinically appropriate intervention at this time. We will monitor/initiate medications and make changes as indicated. He will be in the hospital for over 2 midnights. Likely length of stay 3-5 days. Coding Level of Care Code Acute Code for [facility] Fwd Diagnoses ADD (attention deficit disorder) F98.8 Explosive personality disorder F60.3 Bipolar 1 disorder F31.9 History of drug abuse F19.11 Cannabis use disorder, severe, dependence F12.20 Methamphetamine dependence F15.20
[2025-06-11] MEDS: paliperidone ER 6 mg Tablet PO (09:29)
[2025-06-11 14:00] VITALS: BP 105/66; PULSE 80; RESP 18; TEMP 36.7; O2SAT 98
[2025-06-11 19:33] VITALS: BP 107/64; PULSE 74; RESP 16; TEMP 36.6; O2SAT 98
[2025-06-12 06:00] VITALS: BP 109/56; PULSE 74; RESP 16; TEMP 36.6; O2SAT 98
[2025-06-12] MEDS: paliperidone ER 6 mg Tablet PO (08:28)
[2025-06-12 14:00] VITALS: BP 139/76; PULSE 83; RESP 18; TEMP 36.6; O2SAT 99
--- NOTE | 2025-06-12 18:24 | W.PM.NPUPNS ---
Subjective NPU Subjective: Patient presented today reporting that he is doing fine. He denied any issues with his medications and was very happy about his connection with [facility] with a plan to leave early in the morning tomorrow for rehab. He denied any side effects of the medication. Mental Status Exam MSE Comments: This is an overweight versus obese white male in hospital scrubs with adequate grooming and eye contact. No abnormal movements except for psychomotor retardation. Cooperative with exam in mild distress. Speech was decreased rate and volume. Mood described as feeling better, affect congruent.. Thought process linear. Thought content: Patient denied suicidal or homicidal ideation, there were no delusions reported or noted, he denied current auditory or visual hallucinations. Attention and concentration were intact And memory was mostly reliable but no more formally tested. He is alert and oriented times 3. Insight, judgment and impulse control were limited but improving. Vitals/I&O/Wt Last Vital Signs Temp 98 F 06/12/25 14:00 Pulse 83 06/12/25 14:00 Resp 18 06/12/25 14:00 BP 139/76 06/12/25 14:00 Pulse Ox 99 06/12/25 14:00 O2 Del Method Room Air 06/12/25 06:00 Data NPU 06/10/25 09:42 06/10/25 09:42 A&P Assessment and plan 1. ADD (attention deficit disorder): 2. Explosive personality disorder: 3. Bipolar 1 disorder: 4. History of drug abuse: 5. Cannabis use disorder, severe, dependence: 6. Methamphetamine dependence: Plan: This is a 24-year-old white male with a significant history of mental health and addiction issues with multiple recent hospitalizations and recent stent and a local sober living facility this lasted approximately 1 day. He acknowledges his difficulty with sobriety but endorses he is ready to try again. He presents positive for amphetamines and cannabis. 1. Restart his medications. 2. Continue every 15 minute checks for safety. 3. Encourage individual, group and milieu therapies. 4. Encourage sober living treatment after discharge at the highest level of care to which he is willing to commit. Discharge to [facility] rehab tomorrow. 5. Get collateral information especially finding out where he has his outpatient services. 6. Evaluate against the backdrop of the 96-hour hold. PDMP PDMP Reviewed: Not Reviewed Attestations NPU Medical Necessity Statement*: Inpatient hospitalization is medically necessary and the clinically appropriate intervention at this time. We will monitor/initiate medications and make changes as indicated. Likely length of stay 1-3 days. Coding Level of Care Code Acute Code for [facility] Fwd Diagnoses ADD (attention deficit disorder) F98.8 Explosive personality disorder F60.3 Bipolar 1 disorder F31.9 History of drug abuse F19.11 Cannabis use disorder, severe, dependence F12.20 Methamphetamine dependence F15.20
[2025-06-12 19:40] VITALS: BP 124/84; PULSE 80; RESP 17; TEMP 36.6; O2SAT 97
[2025-06-13 06:00] VITALS: BP 110/66; PULSE 77; RESP 16; TEMP 36.7; O2SAT 97
--- NOTE | 2025-06-13 06:33 | W.PM.NPUDCS ---
Diagnoses at Discharge Discharge Diagnosis 1. ADD (attention deficit disorder): 2. Explosive personality disorder: 3. Bipolar 1 disorder: 4. History of drug abuse: 5. Cannabis use disorder, severe, dependence: 6. Methamphetamine dependence: Reason for Visit Reason for Visit: e Mental Status Exam MSE Comments: This is an overweight versus obese white male in hospital scrubs with adequate grooming and eye contact. No abnormal movements except for psychomotor retardation. Cooperative with exam in mild distress. Speech was decreased rate and volume. Mood described as feeling better, affect congruent.. Thought process linear. Thought content: Patient denied suicidal or homicidal ideation, there were no delusions reported or noted, he denied current auditory or visual hallucinations. Attention and concentration were intact And memory was mostly reliable but no more formally tested. He is alert and oriented times 3. Insight, judgment and impulse control were limited but improving. Discharge Data Studies Completed and Pending: Laboratory Results WBC 7.67 10^3/uL (3.2 9-11.43) 06/10/25 09:42 RBC 4.98 10^6/uL (3.8 5-5.65) 06/10/25 09:42 Hgb 14.40 g/dL (11.27 -16.99) 06/10/25 09:42 Hct 41.9 % (37-53) 06/10/25 09:42 MCV 84.1 fl (82-101) 06/10/25 09:42 MCH 28.9 pg (27-33) 06/10/25 09:42 MCHC 34.4 g/dL (30-55) 06/10/25 09:42 RDW 13.2 % (12.1-15.1 ) 06/10/25 09:42 Plt Count 263 10^3/cmm (157 -399) 06/10/25 09:42 MPV 9.7 fL (7.4-10.4) 06/10/25 09:42 Neut % (Auto) 61.8 % 06/10/25 09:42 Lymph % (Auto) 26.5 % 06/10/25 09:42 Hart % (Auto) 9.5 % 06/10/25 09:42 Eos % (Auto) 1.2 % 06/10/25 09:42 Baso % (Auto) 0.7 % 06/10/25 09:42 Neut # (Auto) 4.75 10^3/uL (1.8 -7.7) 06/10/25 09:42 Lymph # (Auto) 2.0 10^3/uL (0.8- 4.8) 06/10/25 09:42 Hart # (Auto) 0.7 10^3/uL (0.2- 0.9) 06/10/25 09:42 Eos # (Auto) 0.1 10^3/uL (0.0- 0.8) 06/10/25 09:42 Baso # (Auto) 0.1 10^3/uL (0.0- 0.1) 06/10/25 09:42 Nucleated RBC % (a uto) 0 % 06/10/25 09:42 Nucleated RBCs # 0.0 /100WBC 06/10/25 09:42 Sodium 138 mmol/L (136-1 45) 06/10/25 09:42 Potassium 3.7 mmol/L (3.5-5 .1) 06/10/25 09:42 Chloride 102 mmol/L (98-10 7) 06/10/25 09:42 Carbon Dioxide 23 mmol/L (22-29) 06/10/25 09:42 Anion Gap 16.7 (5-19) 06/10/25 09:42 BUN 15 mg/dL (6-20) 06/10/25 09:42 Creatinine 0.8 mg/dL (0.7-1. 2) 06/10/25 09:42 GFR Calculation 118.8 mL/min (90- 130) 06/10/25 09:42 Glucose 84 mg/dL (65-115) 06/10/25 09:42 Calculated Osmolal ity 286 mOsm/kg (285- 295) 06/10/25 09:42 Calcium 9.2 mg/dL (8.5-10 .5) 06/10/25 09:42 Total Bilirubin 1.0 mg/dL (0.15-1 .2) 06/10/25 09:42 AST 24 U/L (0-40) 06/10/25 09:42 ALT 18 U/L (0-41) 06/10/25 09:42 Alkaline Phosphata se 93 U/L (40-130) 06/10/25 09:42 Total Protein 7.0 g/dL (6.6-8.7 ) 06/10/25 09:42 Albumin 4.5 g/dL (3.5-5.2 ) 06/10/25 09:42 Globulin 2.5 g/dL (1.3-4.6 ) 06/10/25 09:42 Salicylates < 0.3 mg/dL (3-10 ) L 06/10/25 09:42 Urine Opiates Scre en Negative ng/mL (N egative) 06/10/25 13:23 Acetaminophen < 5.0 ug/mL (10-3 0) L 06/10/25 09:42 Ur Barbiturates Sc reen Negative ng/mL (N egative) 06/10/25 13:23 Ur Phencyclidine S crn Negative ng/mL (N egative) 06/10/25 13:23 Ur Amphetamines Sc reen Positive ng/mL (N egative) H 06/10/25 13:23 U Benzodiazepines Scrn Negative ng/mL (N egative) 06/10/25 13:23 Urine Cocaine Scre en Negative ng/mL (N egative) 06/10/25 13:23 U Marijuana (THC) Screen Positive ng/mL (N egative) H 06/10/25 13:23 Ethyl Alcohol < 10 mg/dL (0-10) 06/10/25 09:42 Vitals: Last Vital Signs Temp 98.0 F 06/13/25 06:00 Pulse 77 06/13/25 06:00 Resp 16 06/13/25 06:00 BP 110/66 06/13/25 06:00 Pulse Ox 97 06/13/25 06:00 O2 Del Method Room Air 06/13/25 06:00 Discharge Plan Discharge Patient Disposition: Home Condition: Stable Prescriptions: New atomoxetine 80 mg capsule 80 mg PO DAILY 30 Days Qty: 30 1RF escitalopram oxalate [Lexapro] 20 mg tablet 20 mg PO DAILY 30 Days Qty: 30 1RF Continued trazodone 50 mg Tablet 50 mg PO BEDTIME 30 Days Qty: 30 1RF paliperidone 6 mg Tablet Extended Release 24hr 6 mg PO DAILY 30 Days Qty: 30 1RF thiamine mononitrate (vit B1) [Vitamin B-1 (mononitrate)] 100 mg Tablet 100 mg PO DAILY 30 Days Qty: 30 1RF Discontinued atomoxetine 40 mg Capsule 80 mg PO DAILY 7 Days Qty: 14 1RF escitalopram oxalate 10 mg Tablet 20 mg PO DAILY 7 Days Qty: 14 1RF folic acid 1 mg Tablet 1 mg PO DAILY 7 Days Qty: 7 1RF Discharge Order = DC NOW: Discharge Order (Routine); Ordered 06/13/25 Ordered By: Davin Rousseau Referrals: [facility] [Other] - 06/13/25 10:00 am Des Flores FNP [Primary Care Provider, [facility]] Discharge Diet: Regular Discharge Activity: Resume usual activity Patient Instructions: Escitalopram (By mouth), Atomoxetine (By mouth), Methamphetamine Use Disorder (DC), Opioid Safety, Patient Portal & Gm Instructions Discharge Attestations NPU Time Spent in Discharge Care*: less than 30 min Specific Discharge Activities: Specific discharge activities: educating patient, discussing with lead case manager/social workers/dc planners, documenting/other paperwork and evaluating patient/reviewing data Coding Level of Care Code Acute Code for [facility] Fwd Diagnoses ADD (attention deficit disorder) F98.8 Explosive personality disorder F60.3 Bipolar 1 disorder F31.9 History of drug abuse F19.11 Cannabis use disorder, severe, dependence F12.20 Methamphetamine dependence F15.20
[2025-06-13 07:09] VITALS: BP 110/66; PULSE 77; RESP 16; TEMP 36.6; O2SAT 97
== END 2025-06-13 07:40 | disposition home or self-care (01) | DRG 883 ==
LOC: ER 14:04 → NP 20:14 → ER IP 06-11 07:40
PROVIDERS: Admitting Provider Psychiatry & Neurology Psychiatry; Emergency Provider Family Medicine; PCP Nurse Practitioner Family; Visit Provider Psychiatry & Neurology Psychiatry
DX: F60.3 Borderline personality disorder (principal); F15.20 Other stimulant dependence, uncomplicated; F98.8 Other specified behavioral and emotional disorders with onset usually occurring in childhood and adolescence; F31.9 Bipolar disorder, unspecified; F12.20 Cannabis dependence, uncomplicated; E66.9 Obesity, unspecified; Z68.30 Body mass index [BMI] 30.0-30.9, adult; F17.200 Nicotine dependence, unspecified, uncomplicated
CPT/HCPCS: 80053; 80306; 80307; 85025; 97150; 97165; 99285; J9999